=== PATIENT | female | born 1945 | race Asian ===

== ENCOUNTER → 2020-03-31 10:14 | Outpatient (CLI) | payer MEDICARE, OTHER, SELFPAY ==
[2020-03-31 13:23] LABS: COVID19 -Nasal RAPID Negative (Negative)
== END ==
PROVIDERS: Visit Provider Physician Assistant
DX: Z11.59 Encounter for screening for other viral diseases (principal)
CPT/HCPCS: 87635

== ENCOUNTER → 2020-09-03 12:07 | Outpatient (CLI) | payer MEDICARE, OTHER, SELFPAY ==
[2020-09-03 13:11] LABS: Add Manual Diff / Slide Review NO; Basophils Absolute Auto 100 /uL (0-100); Basophils Percent Auto 0.6 % (0-2); Eosinophils Absolute Auto 100 /uL (0-450); Eosinophils Percent Auto 0.7 % (2-4); Hematocrit 33.8 % (36-46); Hemoglobin 11.2 g/dL (12.0-16.0); Lymphocytes Absolute Auto 1000 /uL (1100-4500); Lymphocytes Percent Auto 8.9 % (25-40); Mean Corpuscular Hemoglobin 30.8 PG (26-34); Mean Corpuscular Volume 93.3 fL (80-100); Monocytes Absolute Auto 600 /uL (0-900); Monocytes Percent Auto 5.4 % (3-14); Neutrophils Absolute Auto 9500 /uL (1500-7000); Neutrophils Percent Auto 84.4 % (50-75); Platelet Count 398 X10^3/uL (150-400); Red Blood Cell Count 3.62 X10^6/uL (4.0-5.2); Red Cell Distribution Width 13.4 % (11.6-14.8); White Blood Cell Count 11.3 X10^3/uL (4.5-11.0)
[2020-09-03 13:33] LABS: Hemoglobin A1C% w Est Avg Glu 7.2 % (4.0-6.0)
[2020-09-03 13:42] LABS: BUN Creatinine Ratio 26.2 (6-22); Blood Urea Nitrogen 37 mg/dL (7-17); Calcium 9.6 mg/dL (8.4-10.2); Carbon Dioxide 29 mmol/L (22-32); Chloride 100 mmol/L (98-107); Estimated Glomerular Filt Rate 36.2 mL/min (>60); Glucose 188 mg/dL (80-110); HEMOLYSIS < 15 (0-50); Potassium 4.2 mmol/L (3.4-5.1); Sodium 137 mmol/L (137-145)
== END ==
PROVIDERS: Referring Provider Orthopaedic Surgery; Visit Provider Orthopaedic Surgery
DX: R73.9 Hyperglycemia, unspecified (principal); Z01.812 Encounter for preprocedural laboratory examination; N39.0 Urinary tract infection, site not specified
CPT/HCPCS: 36415; 80048; 83036; 85025

== ENCOUNTER → 2020-09-15 08:59 | Outpatient (CLI) | payer MEDICARE, OTHER, SELFPAY ==
[2020-09-15 11:30] LABS: COVID19 -Nasal RAPID Negative (Negative)
== END ==
PROVIDERS: Visit Provider Student in an Organized Health Care Education/Training Program
DX: Z01.812 Encounter for preprocedural laboratory examination (principal); Z20.822 Contact with and (suspected) exposure to COVID-19
CPT/HCPCS: 87635

== ENCOUNTER 2020-09-16 07:45 | Inpatient (IN) | payer MEDICARE, OTHER, SELFPAY ==
[2020-09-10 12:12] VITALS: BMI 25.6
[2020-09-16] VITALS (20 sets, daily range): BP systolic 97–175; BP diastolic 58–75; PULSE 58–73; RESP 8–22; TEMP 35.8–37.3; O2SAT 92–98; BMI 28.3
[2020-09-16] MEDS: ACETAMINOPHEN 325 MG TABLET 975 MG PO (09:10)
[2020-09-16] MEDS: CELECOXIB 200 MG CAPSULE PO (09:11)
[2020-09-16] MEDS: LACTATED RINGERS 1,000 ML 42 ML IV ×2 (09:15→12:54)
[2020-09-16] MEDS: VANCOMYCIN 1,000 MG/200 ML PIGGYBACK 200 MG IV (10:00)
--- NOTE | 2020-09-16 10:47 | P.OP_ITS ---
Operative Date/Time/Diagnoses Date of procedure: 09/16/20 Time of procedure: 10:48 Pre-op diagnosis: Left knee osteoarthritis severe Post-op diagnosis: same Procedure & Clinicians Procedure: Left total knee arthroplasty Same procedure as scheduled: Yes Indications: The patient has had progressively worsening left knee pain with radiographic changes consistent with arthritis. Non-operative management has failed and the patient has requested total knee replacement. The risks, benefits and alternatives to surgery were discussed with the patient prior to proceeding. Risks discussed included, but were not limited to, failure to relieve pain, stiffness, infection, nerve damage, deep venous thrombosis, pulmonary embolism, stroke, coma, heart attack, permanent paralysis and , as well as the potential need for eventual revision of the prosthetic. She also has multiple multiple medical comorbidities which I anticipate will require inpatient admission close monitoring and probable discharge to an [facility]. We have been medically stabilizing her for about a year due to her mild renal failure, she has seen a nursing care attendant for workup of her heart and is were carefully with her primary care practitioner to stabilize her other medical problem. She also has fairly severe right knee osteoarthritis. Surgeon: Mahogany Stout [employer] Consultant: Dakota Mckeon Anesthesia Type: General and Peripheral nerve block Operative Notes Findings: Severe left knee osteoarthritis Closure Type: primary Specimen(s): none sent Prosthetic devices, grafts, tissues, transplants, or devices: Stout and Nephew Vicente BCS 2 size 2 femur, size 2 tibia, +9 poly 32 x 7.5 mm patella Applied: drain(s) Estimated Blood Loss (mL): 250 Blood products transfused: none Tourniquet time (min): 80 Procedure in detail: The patient was seen in the pre-operative area, where the patient identified the left knee as the operative site and this was marked with my initials. The patient received pre-operative antibiotics, and was taken to the operating room and placed on the operative table in the supine position. After satisfactory anesthesia, a manager supply out was performed. The left leg was e ncircled with a tourniquet about the proximal thigh, and the leg was prepared from the toes to the tourniquet with ChloroPrep in the usual fashion and draped through sterile drapes. The leg was elevated and exsanguinated with Eschmark bandage and the tourniquet inflated to [250] mmHg pressure. The knee was approached through an approximately 18 cm incision centered over the patella and carried into the knee through a medial parapatellar arthrotomy. A portion of the medial and lateral meniscus was resected. Soft tissue was carefully mobilized around the patella the patella was measured with a caliper. Bone was resected from the patella and the patellar height was reconstituted with up an appropriate sized patellar component. A cover was then placed on the patella. A small amount of additional medial and lateral meniscus was resected. The distal femur was cut at 5?. A [+2] cut was used. It looked like an appropriate distal femoral cut and the cut was made without difficulty. An extr amedullary guide was used for the tibial cut. 10 mm was resected off the least affected side.The tibia was prepared. The rotation was assessed. The patient was placed in extension residual medial and lateral meniscus as well as any residual bone was carefully resected. [No] additional tibia was resected. Hemostasis was achieved especially posteriorly. Additional local was injected into the posterior capsule. The extension gap was assessed and additional releases for gap balancing were performed as necessary. It was checked with the gap machine sander. The femoral component was trial was placed and the notch was finished. The rotation was assessed and the appropriate size femoral guide was placed on the distal femur and finishing cuts were made. There was no evidence of notching. The anterior, posterior and chamfer cuts were then made. The posterior osteophytes and soft tissues were then removed. The posterior capsule was injected with part of a mixture of 60 ml 0.25% Marcaine mixed with 20 ml Exparel for post operative pain control. The remainder of this mixture was injected into the capsule and subcutaneous tissues during cement curing. The tibial and femoral components were then placed and the knee placed through a range of motion. Range of motion was [0-120], with good stability throughout the range. The trials were then removed, and the tibia was finished. The bone was prepared with pulsatile lavage, and dried with a sponge. Cement was applied and the final prosthetics placed. Excess cement was removed during and after cement curing. A brief Betadine soak was performed. After confirming there was no extruded cement posteriorly, the final tibial insert was placed. The knee was copiously irrigated and the tourniquet deflated. Hemostasis was obtained with the Bovie. A drain was placed and brought out superolaterally. The capsule was closed with interrupted nonabsorbable suture. The subcutaneous layer was closed with barbed sutures, and the skin with a running 3-0 V-Lock suture and Surgical glue. An Aquacel Ag dressing was applied and the patient was taken to recovery having tolerated the procedure well. Complications: none Post-operative Condition: stable Disposition: Acute Care Plan for aftercare: Inpatient admission due to multiple medical comorbidities including mild chronic renal failure, significant hypertension, severe right knee osteoarthritis and significant immobility. Anticipate she will require at least 2 midnights of care and that she will likely require discharge to rehab in order to recover and get function from her left knee arthroplasty.
--- NOTE | 2020-09-16 10:47 | PM.PREOP ---
Pre-operative Note COVID-19 COVID-19 status: Negative Interval Note History & Physical reviewed/Exam performed by Physician: Yes Changes to H&P: No
[2020-09-16] MEDS: MIDAZOLAM 2 MG/2 ML VIAL IV (10:51)
[2020-09-16] MEDS: fentaNYL 100 MCG/2 ML INJ 50 MCG IV (11:03)
--- NOTE | 2020-09-16 11:04 | SUR.PREOP ---
Pt brought to room 5 for block. Block start time [1050] . Monitoring initiated and maintained throughout procedure. Oxygen and medications given per anesthesiologist instructions. Patient remained stable throughout procedure, no adverse reactions noted. Block end time [1057]. Pt left with CHIOMA Granados in stable condition.
[2020-09-16] MEDS: TRANEXAMIC ACID 1,000 MG VIAL 1000 MG INJ ×2 (11:28→12:49)
--- NOTE | 2020-09-16 11:33 | SUR.OPER ---
Supine on padded OR bed. Pillow under head, arms secured on padded armboards <90 degree abduction. Safety belt across torso. Non-operative leg secured with tape over blanket over lower leg. Operative leg secured in DeMayo/Osmel positioner. Foam padded brace at thigh of operative leg.
[2020-09-16] MEDS: CEFAZOLIN 1 GM VIAL 2 GM IV ×2 (11:40→21:09)
[2020-09-16] MEDS: BUPIVACAINE 0.5% W/ EPI (PF) 30 ML VIAL INJ (11:41)
[2020-09-16] MEDS: BUPIVACAINE LIPOSOME 266 MG/20 ML VIAL INJ (11:42)
--- NOTE | 2020-09-16 12:00 | DI.RAD.S_ITS ---
PROCEDURE: XR KNEE LT 1TO2V INDICATIONS: LEFT TOTAL KNEE TECHNIQUE: 2 view(s) of the knee acquired. COMPARISON: None. FINDINGS: Bones: Patient is status post knee joint arthroplasty. Hardware components are in expected positions. Visualized bony structures are intact. Soft tissues: Overlying postoperative changes are noted. IMPRESSION: Expected postoperative appearance. Dictated by: Baron Guzman M.D. on 09/16/2020 at 14:01 Approved by: Baron Guzman M.D. on 09/16/2020 at 14:02
[2020-09-16] MEDS: OXYCODONE/ACETAMINOPHEN 5/325 TABLET 1 TAB PO (14:08)
[2020-09-16] MEDS: hydrOXYzine 50 MG/ML INJ 25 MG IM (14:13)
--- NOTE | 2020-09-16 14:47 | PC.NURSE ---
Day shift: Pt on AC unit from PACu at approx 1450. She is sleeping but awakes to voice. Omid-vac to be unclamped at approx 1515 per TEMPLATE REPRODUCTION TECHNICIAN Steve. ROSEANN and Aquacel left knee CDI. O2 93% RA. SCD's tolerated. VS WNL. BG in PACU was 206. CMS ok. Call light in reach. Bed alarm is on. High fall risk for now.
--- NOTE | 2020-09-16 14:53 | SUR.PHASEI ---
REPORT CALLED TO SANTY HALL RN. ALL QUESTIONS ANSWERED TO SATISFACTION, HV CLAMPED, DUE TO BE UNCLAMPED AFTER 2 HRS WHICH IS 1520. VSS, RA. PAIN ADEQUATELY TREATED. PATIENT MOSTLY SLEEPING, AROUSES TO VOICE. IN PERSON HANDOFF TO CHIOMA MADERA AT BEDSIDE. SCD'S ON, BED LOCKED IN LOW POSITION, VSS. CALL LIGHT IN REACH.
[2020-09-16] MEDS: LACTATED RINGERS 1,000 ML 100 ML IV (14:58)
[2020-09-16] MEDS: INSULIN LISPRO 100 UNIT/ML 3ML VIAL 6 UNIT SUBCUT (18:07)
[2020-09-16] MEDS: OXYCODONE IR 5 MG TABLET PO ×2 (18:09→21:19)
--- NOTE | 2020-09-16 20:42 | P.CONS_ITS ---
History of Present Illness Consult details Date Patient Seen: 09/16/20 Time Patient Seen: 15:43 Chief complaint: OPB Reason for consult: Medical management of multiple comorbidities Requesting provider: Mahogany Stout Narrative: Ms. Marley is a 75W with PMH CKD stage 4 baseline creatinine 1.4- 1.7, hx of CVA, DM, HL, HTNu, diastolic CHF, who was an operative case with Dr. Stout for left knee osteoarthritis and underwent left TKA on 09/16. Prior to admission she did get cardiology, renal, and PCP evaluation to ensure medical optimization prior to surgery. She did do well after surgery and was admitted to the floor. On admission to the floor her vitals were notable for normal blood pressure, all other vitals normal. She was feeling well. She had moderate pain in her left leg after the surgery. Otherwise no chest pain, shortness of breath, lightheadednes, cough, fevers/chills. Her home medications have all been continued at this point Meds Home Medications and Allergies Home Medications Medication Instructions Recorded Confirmed Type albuterol sulfate 1 inh INHALATION QID PRN 03/28/20 09/16/20 History alprazolam 0.25 mg PO BID PRN 03/28/20 09/16/20 History amlodipine 7.5 mg PO DAILY 03/28/20 09/16/20 History anagrelide 1 mg PO Q12H 03/28/20 09/16/20 History docusate sodium 100 mg PO DAILY PRN 03/28/20 09/09/20 History doxazosin 4 mg PO DAILY 03/28/20 09/16/20 History ferrous sulfate 325 mg PO DAILY 03/28/20 09/09/20 History furosemide 20 mg PO BID 03/28/20 09/16/20 History insulin aspart U-100 [Novolog 6 unit SUBCUT BID 03/28/20 09/16/20 History Flexpen U-100 Insulin] insulin glargine [Lantus Solostar 16 unit SUBCUT DAILY 03/28/20 09/16/20 History U-100 Insulin] isosorbide mononitrate 30 mg PO DAILY 03/28/20 09/16/20 History labetalol 300 mg PO BID 03/28/20 09/16/20 History lidocaine [Lidocream] 1 applic TOPICAL QID 03/28/20 09/09/20 History magnesium oxide 800 mg PO DAILY 03/28/20 09/16/20 History multivitamin 1 cap PO DAILY 03/28/20 09/16/20 History prednisone 5 mg PO DAILY 03/28/20 09/16/20 History sertraline 100 mg PO DAILY 03/28/20 09/16/20 History simvastatin 20 mg PO BEDTIME 03/28/20 09/16/20 History clopidogrel 75 mg PO DAILY 09/09/20 09/16/20 History hydrocodone-acetaminophen 2 tab PO Q4-6H PRN 09/09/20 09/09/20 History Allergies Allergy/AdvReac Type Severity Reaction Status Date / Time caffeine Allergy Mild Rash Verified 03/28/20 12:35 clonidine Allergy Mild Rash Verified 03/28/20 12:35 lansoprazole [From Prevacid] Allergy Mild Rash Verified 03/28/20 12:35 Penicillins Allergy Mild Rash Verified 03/28/20 12:35 spironolactone Allergy Mild Rash Verified 03/28/20 12:35 aspirin Allergy Reaction Verified 03/28/20 12:35 not listed egg AdvReac Nausea Verified 03/28/20 12:35 milk AdvReac Cramp Verified 03/28/20 12:35 Review of Systems Review of Systems Narrative: 14 systems reviewed and negative aside from what is noted in HPI Exam Vital Signs (past 8 hours): - 09/16/20 13:22 09/16/20 13:26 09/16/20 13:31 Temperature 97.9 F Pulse Rate 66 66 67 Respiratory Rate 8 L 8 L 8 L Blood Pressure 166/72 H 170/65 H 165/71 H Pulse Oximetry 98 97 96 09/16/20 13:36 09/16/20 13:40 09/16/20 13:45 Temperature 99.1 F Pulse Rate 60 68 67 Respiratory Rate 8 L 8 L 10 L Blood Pressure 161/65 H 151/66 H 152/66 H Pulse Oximetry 96 96 94 09/16/20 13:51 09/16/20 13:56 09/16/20 14:05 Temperature 98.2 F Pulse Rate 67 70 73 Respiratory Rate 11 L 10 L 12 Blood Pressure 174/75 H 174/67 H 171/75 H Pulse Oximetry 92 94 95 09/16/20 14:20 09/16/20 14:30 09/16/20 14:35 Temperature 98.2 F Pulse Rate 71 68 64 Respiratory Rate 12 12 12 Blood Pressure 175/70 H 169/67 H 161/65 H Pulse Oximetry 94 94 94 09/16/20 14:45 09/16/20 15:15 09/16/20 15:45 Temperature 97.9 F 96.9 F L 97.2 F L Pulse Rate 60 62 58 L Respiratory Rate 14 15 15 Blood Pressure 140/64 97/58 L 140/67 Pulse Oximetry 92 92 92 09/16/20 16:44 09/16/20 18:14 Temperature 96.4 F L 97.9 F Pulse Rate 61 70 Respiratory Rate 16 16 Blood Pressure 132/69 156/72 H Pulse Oximetry 95 96 Oxygen Delivery Method Room Air Oxygen Flow Rate 0 Narrative Exam Narrative: GEN: no acute distress HEENT: no JVD, moist mucous membranes NECK: trachea midline, no JVD CV: regular rate and rhythm with no murmurs PULM: clear bilaterally, no wheezes, rhonchi, rales ABD: soft, nontender, nondistended, no organomegaly EXT: left knee bandaged, both legs warm and well perfused with normal sensation, pulses present NEURO: awake and alert, moving all extremities PSYCH: pleasant mood, cooperative Assessment & Plan Assessment & Plan narrative: Ms. Marley is a 75W with PMH CHF, CKD stage 4, DM, HTN, hx CVA who is POD #0 from left knee TKA 1. CKD stage 4 -creatinine at baseline -no nephrotoxins ordered -keep blood pressure under control -plan to stop fluids 09/17 AM if continues with clinical stability 2. CHF, diastolic, chronic -patient currently euvolemic -on gentle IVF -plan to keep overnight, and dc as able in AM 3. Hypertension -home medications ordered -blood pressure well controlled -continue labetalol, imdur 4. Hyperlipidemia -continue statin 5. Diabetes -continued on home dose of insulin with 16U lantus and prandial insulin -qachs glucose checks 6. Hx of CVA -continue aspirin, plavix, and statin -PT/OT as patient has natural baseline gait imbalance 7. Essential thrombocytosis -on anagrelide, can reorder on DC Code status: Full, proxy is son Al
[2020-09-16] MEDS: ACETAMINOPHEN 325 MG TABLET 650 MG PO (21:10)
[2020-09-16] MEDS: ASPIRIN EC 81 MG TABLET PO (21:10)
[2020-09-16] MEDS: ATORVASTATIN 20 MG TABLET 10 MG PO (21:11)
[2020-09-16] MEDS: DOCUSATE 100 MG CAPSULE PO (21:11)
[2020-09-16] MEDS: LABETALOL 100 MG TABLET 300 MG PO (21:11)
[2020-09-16] MEDS: FUROSEMIDE 20 MG TABLET PO (21:11)
--- NOTE | 2020-09-16 21:38 | PC.NURSE ---
Evening Shift Note Patient with bedtime CBG of 242, no SSI available for coverage. electronics computer mechanic MD Dr Rome called and no answer, voicemail left @ [phone].
[2020-09-16] MEDS: INSULIN LISPRO 100 UNIT/ML 3ML VIAL SUBCUT (23:19)
[2020-09-17] VITALS (9 sets, daily range): BP systolic 137–187; BP diastolic 50–86; PULSE 58–70; RESP 12–18; TEMP 35.6–36.8; O2SAT 94–98
[2020-09-17] MEDS: LACTATED RINGERS 1,000 ML 100 ML IV (01:44)
[2020-09-17] MEDS: OXYCODONE IR 5 MG TABLET PO ×2 (03:21→08:28)
[2020-09-17] MEDS: CEFAZOLIN 1 GM VIAL 2 GM IV (04:17)
[2020-09-17 04:48] LABS: Hemoglobin 10.3 g/dL (12.0-16.0)
[2020-09-17 04:58] LABS: Blood Urea Nitrogen 40 mg/dL (7-17); Calcium 9.1 mg/dL (8.4-10.2); Carbon Dioxide 32 mmol/L (22-32); Chloride 101 mmol/L (98-107); Estimated Glomerular Filt Rate 34.2 mL/min (>60); Glucose 118 mg/dL (80-110); HEMOLYSIS < 15 (0-50); Sodium 138 mmol/L (137-145)
[2020-09-17] MEDS: ALPRAZolam 0.25 MG TABLET PO (06:05)
[2020-09-17] MEDS: ACETAMINOPHEN 325 MG TABLET 650 MG PO ×3 (08:20→21:18)
[2020-09-17] MEDS: ASPIRIN EC 81 MG TABLET PO ×2 (08:22→21:19)
[2020-09-17] MEDS: ISOSORBIDE MONONITRATE ER 30 MG TABLET PO (08:23)
[2020-09-17] MEDS: predniSONE 5 MG TABLET PO (08:24)
[2020-09-17] MEDS: CLOPIDOGREL 75 MG TABLET PO (08:24)
[2020-09-17] MEDS: MAGNESIUM OXIDE 400 MG TABLET 800 MG PO (08:24)
[2020-09-17] MEDS: MULTIVITAMIN 1 TABLET 1 TAB PO (08:24)
[2020-09-17] MEDS: FERROUS SULFATE 325 MG TABLET PO (08:24)
[2020-09-17] MEDS: DOCUSATE 100 MG CAPSULE PO ×2 (08:24→21:18)
[2020-09-17] MEDS: DOXAZOSIN 4 MG TABLET PO (08:26)
[2020-09-17] MEDS: SERTRALINE 50 MG TABLET 100 MG PO (08:26)
[2020-09-17] MEDS: FUROSEMIDE 20 MG TABLET PO ×2 (08:26→21:19)
[2020-09-17] MEDS: LABETALOL 100 MG TABLET 300 MG PO ×2 (08:27→21:18)
[2020-09-17] MEDS: AMLODIPINE 5 MG TABLET 7.5 MG PO (08:28)
[2020-09-17] MEDS: INSULIN LISPRO 100 UNIT/ML 3ML VIAL 6 UNIT SUBCUT ×2 (08:45→16:54)
[2020-09-17] MEDS: INSULIN GLARGINE 100 UNIT/ML 3ML PEN 16 UNIT SUBCUT (08:45)
--- NOTE | 2020-09-17 10:16 | P.PN_ITS ---
Subjective Subjective Date Patient Seen: 09/17/20 Time Patient Seen: 07:28 Interval history: Pain is 6 to 7/10. Denies fever or chills. No nausea or vomiting. Exam Vital Signs (past 8 hours): - 09/17/20 06:00 09/17/20 07:25 09/17/20 08:26 Temperature 98.3 F 97.4 F L Pulse Rate 68 66 Respiratory Rate 16 12 Blood Pressure 187/86 H 185/77 H 185/77 H Pulse Oximetry 94 98 09/17/20 08:27 Temperature Pulse Rate Respiratory Rate Blood Pressure 185/77 H Pulse Oximetry Oxygen Delivery Method Room Air Oxygen Flow Rate 0 Narrative Exam Narrative: 75-year-old female resting comfortably in bed in no apparent distress. Dressing is Clean, dry, intact.. Motor functions intact bilateral lower extremities. Sensation grossly intact to light touch bilateral lower extremities. Objective Labs Result Diagrams: 09/17/20 04:20 09/17/20 04:20 Labs: Laboratory Results - last 24 hr 09/17/20 09/17/20 04:20 04:20 Hgb 10.3 L Hct 32.0 L Sodium 138 Potassium 4.0 Chloride 101 Carbon Dioxide 32 BUN 40 H Creatinine 1.48 H Estimated GFR 34.2 L BUN/Creatinine Ratio 27.0 H Glucose 118 H Calcium 9.1 PFSH Medical History Anemia Anxiety Atypical chest pain Cataracts, bilateral CKD (chronic kidney disease), stage IV Congestive heart failure CVA (cerebral vascular accident) Diabetes Diabetic macular edema Diabetic neuropathy Diabetic retinopathy Diastolic dysfunction Edema Essential thrombocythemia Essential thrombocytosis Gait disorder GERD (gastroesophageal reflux disease) Glaucoma HTN (hypertension) Hypercholesterolemia Hyponatremia Insomnia Left ventricular hypertrophy Major depressive disorder Osteoarthritis Pain Pseudophakia of left eye Vitreous hemorrhage of right eye Surgical History History of arthroplasty of left knee (04/01/20) Social History household members: other Smoking Status: Former smoker alcohol intake: never Assessment & Plan Post-op Postoperative Procedures: Procedures Operation Date: 09/16/20 09:45 Actual Procedures Side Surgeon p Total Knee Arthroplasty Left Mahogany Stout MD Postop day 1 status post left total knee arthroplasty. Patient inpatient admission due to multiple medical comorbidities including mild chronic renal failure, significant hypertension, severe right knee osteoarthritis and significant immobility. Patient does live alone. She will mobilize with physical therapy. Weightbearing as tolerated. Likely need senior living facility for rehab postop when stable per IM. Internal Medicine is consulting on patient and appreciate them following CKD stage 4, CHF, hypertension, hyperlipidemia, diabetes, history of CVA, essential thrombocytosis.
--- NOTE | 2020-09-17 11:14 | PM.PN.1 ---
Subjective Subjective Date Patient Seen: 09/17/20 Time Patient Seen: 08:14 Interval history: Her pain is currently poorly controlled. She feels anxious. Otherwise she has no complaints. No chest pain, shortness of breath, fevers/chills. Exam Vital Signs (past 8 hours): - 09/17/20 06:00 09/17/20 07:25 09/17/20 08:26 Temperature 98.3 F 97.4 F L Pulse Rate 68 66 Respiratory Rate 16 12 Blood Pressure 187/86 H 185/77 H 185/77 H Pulse Oximetry 94 98 09/17/20 08:27 Temperature Pulse Rate Respiratory Rate Blood Pressure 185/77 H Pulse Oximetry Oxygen Delivery Method Room Air Oxygen Flow Rate 0 Narrative Exam Narrative: GEN: no acute distress HEENT: no JVD, moist mucous membranes NECK: trachea midline, no JVD CV: regular rate and rhythm with no murmurs PULM: clear bilaterally, no wheezes, rhonchi, rales ABD: soft, nontender, nondistended, no organomegaly EXT: left knee bandaged, both legs warm and well perfused with normal sensation, pulses present NEURO: awake and alert, moving all extremities PSYCH: pleasant mood, cooperative Objective Labs Result Diagrams: 09/17/20 04:20 09/17/20 04:20 Labs: Laboratory Results - last 24 hr 09/17/20 09/17/20 04:20 04:20 Hgb 10.3 L Hct 32.0 L Sodium 138 Potassium 4.0 Chloride 101 Carbon Dioxide 32 BUN 40 H Creatinine 1.48 H Estimated GFR 34.2 L BUN/Creatinine Ratio 27.0 H Glucose 118 H Calcium 9.1 PFSH Medical History Anemia Anxiety Atypical chest pain Cataracts, bilateral CKD (chronic kidney disease), stage IV Congestive heart failure CVA (cerebral vascular accident) Diabetes Diabetic macular edema Diabetic neuropathy Diabetic retinopathy Diastolic dysfunction Edema Essential thrombocythemia Essential thrombocytosis Gait disorder GERD (gastroesophageal reflux disease) Glaucoma HTN (hypertension) Hypercholesterolemia Hyponatremia Insomnia Left ventricular hypertrophy Major depressive disorder Osteoarthritis Pain Pseudophakia of left eye Vitreous hemorrhage of right eye Surgical History History of arthroplasty of left knee (04/01/20) Social History household members: other Smoking Status: Former smoker alcohol intake: never Assessment & Plan Assessment & Plan narrative: Ms. Marley is a 75W with PMH CHF, CKD stage 4, DM, HTN, hx CVA who is POD #0 from left knee TKA 1. CKD stage 4 -creatinine at baseline -no nephrotoxins ordered -keep blood pressure under control -stopped fluids 09/17 AM if continues with clinical stability 2. CHF, diastolic, chronic -patient currently euvolemic -stoppin IVF -plan to keep overnight, and dc as able in AM 3. Hypertension -home medications ordered -blood pressure elevated suspect secondary to significant pain -continue labetalol, imdur 4. Hyperlipidemia -continue statin 5. Diabetes -continued on home dose of insulin with 16U lantus and prandial insulin -qachs glucose checks 6. Hx of CVA -continue aspirin, plavix, and statin -PT/OT as patient has natural baseline gait imbalance 7. Essential thrombocytosis -on anagrelide, can reorder on DC Code status: Full, proxy is son Al
--- NOTE | 2020-09-17 11:25 | PT.IIE ---
Current Diagnoses Unilateral primary osteoarthritis, left knee (09/16/20) Surgery Performed Operation Date: 09/16/20 09:45 Actual Procedures p Total Knee Arthroplasty(Left) - Mahogany Stout MD Surgical History (Last Reviewed 09/17/20 @ 10:17 by Dakota Mckeon PA-C) History of arthroplasty of left knee (04/01/20) Medical History (Last Reviewed 09/17/20 @ 10:17 by Dakota Mckeon PA-C) Anemia Anxiety Atypical chest pain Cataracts, bilateral CKD (chronic kidney disease), stage IV Congestive heart failure CVA (cerebral vascular accident) Diabetes Diabetic macular edema Diabetic neuropathy Diabetic retinopathy Diastolic dysfunction Edema Essential thrombocythemia Essential thrombocytosis Gait disorder GERD (gastroesophageal reflux disease) Glaucoma HTN (hypertension) Hypercholesterolemia Hyponatremia Insomnia Left ventricular hypertrophy Major depressive disorder Osteoarthritis Pain Pseudophakia of left eye Vitreous hemorrhage of right eye Physical Therapy Inpatient Evaluation/Re-Eval M1 PT/OT-IP Prior Functional Status Start: 09/17/20 12:31 Freq: NEEDED Status: Active Protocol: Document 09/17/20 11:25 AB (Rec: 09/17/20 12:45 AB [email or web address]) Medical Review Prior Functional Status Medical History Reviewed Yes Communication able to make needs known Mobility and Gait pt stated that she is modified independent with all mobilities and ambulation using 4WW; stated that she is limited with ambulation inside her apartment/room due to her knee pain Social History Household Members other Living Arrangements Assisted Living Number of Stairs To Enter/Railing? Pt lives at [facility] on 2nd floor apartment and has an elevator to get to her floor. Home Environment Standard Height Toilet,Walk in Shower,Elevator Home Equipment Front Wheel Walker,Four Wheel Walker,Shower Seat with Backrest,Hand Held Shower,Grab Bars Near Toilet,Grab Bars In Shower Additional Social History Comment has a transfer pole next to her bed on the L M2 PT-IP Current Condition Start: 09/17/20 12:31 Freq: NEEDED Status: Active Protocol: Document 09/17/20 11:25 AB (Rec: 09/17/20 12:45 AB [id number]) Physical Therapy Current Condition Current Condition Evaluation Date 09/17/20 Treatment Diagnosis s/p L TKA; difficulty in walking Onset Date 09/16/20 Weight Bearing Status Weight Bearing Status Weight Bear as Tolerated Allowed Weight Bearing Amount (enter % LLE WBAT or #) (%) M3 PT-IP Subjective Start: 09/17/20 12:31 Freq: NEEDED Status: Active Protocol: Document 09/17/20 11:25 AB (Rec: 09/17/20 12:45 AB [email or web address]) Subjective Physical Therapy Visit Type Type Initial Evaluation Visit Start Time 11:25 Visit Stop Time 12:10 Total Visit Minutes 45 Number of HEATING AND VENTILATING DRAFTER Visits 0 Physical Therapy Visit Comments Patient Comments pt is agreeable to do PT Therapy Pain Assessment Pain When Pain Assessed At Rest Pain Present Pain Present Pain Reported Location r knee Intensity 10 Scale Used Numeric (0 - 10) Pain Behaviors Facial Grimacing,Guarding, Holding Area,Wincing Pain Management Techniques Apply Cold,Elevation, Modification of Treatment,Re- positioning,Timing of Activity with Medications M4 PT-IP Mobility and Gait Start: 09/17/20 12:31 Freq: NEEDED Status: Active Protocol: Document 09/17/20 11:25 AB (Rec: 09/17/20 12:45 AB [email or web address]) PT-Bed Mobility Assessment Supine to Sit Supine to Sit Maximum Assistance Scooting Scooting to Edge of Bed Maximum Assistance PT-Transfer Assessment Sit to and From Stand Sit to and from Stand Maximum Assistance,2 Person Assistance,Use of Upper Extremities Equipment Transfer Assistive Device Gait Belt,Front Wheeled Walker Orthotic/Prosthetic Devices or Brace: No Transfers Transfer Destination Chair Transfer Technique Stand Step Pivot Transfer Ability Level of Assist Maximum Assistance,2 Person Assistance,Use of Upper Extremities Comments Mobility Comments pt completed supine to sit max A and max cues. pt c/o increase knee pain and tends to posteriorly lean and requires cues to correct. required min to mod A to maintain sitting balance. completed sit to stand max A x 2 and max cues. presents with increas posterior trunk lean and BLE tends to slide forward required max A to stabilize and block LE to prevent from sliding forwards. pt required max A x 1-2 to maintain standing balance while assisted with brief management. completed step transfer max A x 2 using FWW. educated pt on safety and to correct posture during standing. completed sit to stand from chair max A x 2 and max cues and was able to take a few steps forwards ~ 2 ft using FWW max A x 2 and max cues. pt with increase fear of falling presenting with increase extensor trunk guarding requiring max A x 2 for steadiness. positioned pt on chair. call light and table placed within reach. educated pt on safety and decrease guarding and pt understood. Gait Assessment Gait Gait Assistance Required: Maximum Assistance,2 Person Assist Distance (Feet) 2 Able to Maintain Weight Bearing Status Yes During Gait Assistive Devices Assistive Device Gait Belt,Front Wheeled Walker Orthotic/Prosthetic Devices or Brace: No Gait Deviations General Gait Pattern Antalgic,Decreased Stride Length,Decreased Feet Clearance,Narrow Based Gait, Step-to Gait Factors Limiting Gait Function Factors Limiting Gait Function Decreased Activity Tolerance, Decreased Strength,Difficulty Following Directions,Limited Range of Motion,Pain,Poor Balance,Poor Safety Awareness Comments Gait Comments pls refer to mobility section for details PT-Balance Assessment Sitting Balance and Reactions Static Sitting Balance Ability Fair Dynamic Sitting Balance Ability Poor Standing Balance and Reactions Static Standing Balance Ability Poor Dynamic Standing Balance Ability Poor Device Used FWW M5 PT-IP Objective Assessments Start: 09/17/20 12:31 Freq: NEEDED Status: Active Protocol: Document 09/17/20 11:25 AB (Rec: 09/17/20 12:45 AB [email or web address]) Orientation Orientation/Cognition Level of Alertness Alert Orientation Name,Place,Situation Language Function Ability No Deficits Noted Safety Awareness Decreased Safety Awareness Memory Description Short Term Impaired Gross Range of Motion Lower Extremity ROM Impairments R knee flexion: ~ 40 deg L knee flexion: ~ 50 deg L knee extension: lacking ~ 15 deg to 0 (+) R knee crepitus with ROM Strength Lower Extremity Strength Assessment Bilaterally Impaired Comments Strength Comments RLE: 3+/5 LLE: 3-/5 Coordination Assessment Gross Coordination Gross Coordination WNL Sensation Assessment Sensation Gross Sensation WNL Muscle Tone Muscle Tone WNL Yes M6 PT-IP Treatment Start: 09/17/20 12:31 Freq: NEEDED Status: Active Protocol: Document 09/17/20 11:25 AB (Rec: 09/17/20 12:45 AB [email or web address]) Physical Therapy Treatment Exercises Exercises Heel Slides Education Education Provided Precautions,Weight Bearing Status,Post-Op Packet,Safety M7 PT-IP Assessment and Plan Start: 09/17/20 12:31 Freq: NEEDED Status: Active Protocol: Document 09/17/20 11:25 AB (Rec: 09/17/20 12:45 AB [id number]) PT Summary Assessment and Plan Potential Rehabilitation Potential Good Status of Condition at Evaluation Evolving Summary Impairments Pain,ROM,Strength,Balance, Coordination,Sensation,Tone, Cognition,Bed Mobility, Transfers,Gait,Activity Tolerance Assessment Summary pt requirig max a x 2 with all mobility using FWW. pt was not able to ambulate much and c/o increase knee pain and has increase fear of falling presenting with increase trunk extension affecting mobility and safety. pt will require SNF rehab to improve strength and mobility independence. Goals Transfer Goal Contact Guard Assistance,Front Wheeled Walker Gait Goal Contact Guard Assistance,Front Wheel Walker Gait Distance 50 Other Goals improve bed mobility, transfers and ambulation using FWW 100 ft SBA Days to Meet Goals 5 Frequency of Treatment Frequency Of Treatment Twice a Day Treatment Plan Physical Therapy Treatment Plan Bed Mobility Training,Transfer Training,Gait Training, Therapeutic Exercise,Balance Retraining,Post Op Education, Discharge Planning,Hot or Cold Pack,Neuromuscular Re-ed, Coordination Retraining,Manual Therapy Precautions Other Precautions WBAT LLE Recommendations To Nursing Amount of Assist Needed Mechanical Lift Discharge Recommendations PT Discharge Recommendations SNF Rehab Transportation Needs at Discharge Wheelchair/Cabulance
[2020-09-17] MEDS: OXYCODONE IR 10 MG TABLET PO ×3 (11:26→21:19)
[2020-09-17] MEDS: DICLOFENAC 1% GEL 100 GM 1 APPLIC TOP ×3 (13:04→21:20)
--- NOTE | 2020-09-17 14:40 | PT.IPTN ---
Current Diagnoses Unilateral primary osteoarthritis, left knee (09/16/20) Surgery Performed Operation Date: 09/16/20 09:45 Actual Procedures p Total Knee Arthroplasty(Left) - Mahogany Stout MD Physical Therapy Treatment Note M2 PT-IP Current Condition Start: 09/17/20 12:31 Freq: NEEDED Status: Active Protocol: Document 09/17/20 11:25 AB (Rec: 09/17/20 12:45 AB [email or web address]) Physical Therapy Current Condition Current Condition Evaluation Date 09/17/20 Treatment Diagnosis s/p L TKA; difficulty in walking Onset Date 09/16/20 Weight Bearing Status Weight Bearing Status Weight Bear as Tolerated Allowed Weight Bearing Amount (enter % LLE WBAT or #) (%) M3 PT-IP Subjective Start: 09/17/20 12:31 Freq: NEEDED Status: Active Protocol: Document 09/17/20 14:40 AB (Rec: 09/17/20 16:48 AB [email or web address]) Subjective Physical Therapy Visit Type Type Treatment Note Visit Start Time 14:40 Visit Stop Time 15:10 Total Visit Minutes 30 Number of SELENIUM PLANT OPERATOR Visits 0 Physical Therapy Visit Comments Patient Comments agreed to do PT Therapy Pain Assessment Pain When Pain Assessed At Rest Pain Present Pain Present Pain Reported Location r knee Intensity 12 Scale Used Numeric (0 - 10) Pain Management Techniques Apply Cold,Elevation, Modification of Treatment,Re- positioning,Timing of Activity with Medications M4 PT-IP Mobility and Gait Start: 09/17/20 12:31 Freq: NEEDED Status: Active Protocol: Document 09/17/20 14:40 AB (Rec: 09/17/20 16:48 AB [email or web address]) PT-Bed Mobility Assessment Sit to Supine Sit to Supine Maximum Assistance,2 Person Assistance,Bedrails PT-Transfer Assessment Sit to and From Stand Sit to and from Stand Maximum Assistance,1 Person Assistance,2 Person Assistance ,Use of Upper Extremities Equipment Transfer Assistive Device Gait Belt,Front Wheeled Walker Orthotic/Prosthetic Devices or Brace: No Transfers Transfer Destination Bed Transfer Technique ambulated using FWW Transfer Ability Level of Assist Maximum Assistance,1 Person Assistance,Use of Upper Extremities Comments Mobility Comments pt sitting on chair. Pt does not remember seeing PT this morning. stated that she has memory issues. does not even remember the nurse. assisted pt with putting her shoes on. completed sit to stand max A and max cues. instructed to ambulate and completed max A and max cues and has chair follow for safety. completed descent to the bed max A for control and safety as pt tends to posteriorly lean. completed sit to supine max A x 2 and max cues. positioned pt in bed. call light and table placed within reach. Gait Assessment Gait Gait Assistance Required: Maximum Assistance,1 Person Assist Distance (Feet) 12 Able to Maintain Weight Bearing Status Yes During Gait Assistive Devices Assistive Device Gait Belt,Front Wheeled Walker Orthotic/Prosthetic Devices or Brace: No Gait Deviations General Gait Pattern Antalgic,Decreased Stride Length,Decreased Feet Clearance,Narrow Based Gait, Step-to Gait Factors Limiting Gait Function Factors Limiting Gait Function Decreased Activity Tolerance, Decreased Strength,Difficulty Following Directions,Limited Range of Motion,Pain,Poor Balance,Poor Safety Awareness Comments Gait Comments presents with very narrow step width and required instructions on how to keep legs apart. pt required one step cues with all tasks. M5 PT-IP Objective Assessments Start: 09/17/20 12:31 Freq: NEEDED Status: Active Protocol: Document 09/17/20 11:25 AB (Rec: 09/17/20 12:45 AB [email or web address]) Orientation Orientation/Cognition Level of Alertness Alert Orientation Name,Place,Situation Language Function Ability No Deficits Noted Safety Awareness Decreased Safety Awareness Memory Description Short Term Impaired Gross Range of Motion Lower Extremity ROM Impairments R knee flexion: ~ 40 deg L knee flexion: ~ 50 deg L knee extension: lacking ~ 15 deg to 0 (+) R knee crepitus with ROM Strength Lower Extremity Strength Assessment Bilaterally Impaired Comments Strength Comments RLE: 3+/5 LLE: 3-/5 Coordination Assessment Gross Coordination Gross Coordination WNL Sensation Assessment Sensation Gross Sensation WNL Muscle Tone Muscle Tone WNL Yes M6 PT-IP Treatment Start: 09/17/20 12:31 Freq: NEEDED Status: Active Protocol: Document 09/17/20 14:40 AB (Rec: 09/17/20 16:48 AB [id number]) Physical Therapy Treatment Education Education Provided Safety M7 PT-IP Assessment and Plan Start: 09/17/20 12:31 Freq: NEEDED Status: Active Protocol: Document 09/17/20 14:40 AB (Rec: 09/17/20 16:48 AB [email or web address]) PT Summary Assessment and Plan Potential Rehabilitation Potential Good Summary Impairments Pain,ROM,Strength,Balance, Coordination,Sensation,Tone, Cognition,Bed Mobility, Transfers,Gait,Activity Tolerance Progress Towards Goals Slow Progress due to Pain,Slow Progress due to Medical Issues,Slow Progress due to Activity Tolerance Assessment Summary pt is improving slowly but requires max A and max cues with all tasks. pt has cognitive issues affecting safety. pt will need SNF rehab to improve strength and mobility independence. Goals Bed Mobility Goal Contact Guard Assistance Transfer Goal Contact Guard Assistance,Front Wheeled Walker Gait Goal Contact Guard Assistance,Front Wheel Walker Gait Distance 50 Other Goals improve bed mobility, transfers and ambulation using FWW 100 ft SBA Days to Meet Goals 5 Frequency of Treatment Frequency Of Treatment Twice a Day Treatment Plan Physical Therapy Treatment Plan Bed Mobility Training,Transfer Training,Gait Training, Therapeutic Exercise,Balance Retraining,Post Op Education, Discharge Planning,Hot or Cold Pack,Neuromuscular Re-ed, Coordination Retraining,Manual Therapy Precautions Other Precautions WBAT LLE Recommendations To Nursing Amount of Assist Needed Mechanical Lift Discharge Recommendations PT Discharge Recommendations SNF Rehab Transportation Needs at Discharge Wheelchair/Cabulance
[2020-09-17] MEDS: LORazepam 0.5 MG TABLET PO (14:42)
--- NOTE | 2020-09-17 15:17 | CM.DANOTE ---
Patient is a 75 year old female who was admitted on 09/16/20 for LKA. Pt has [employer] for insurance and her PCP is Yrn Chung. EMR was reviewed. Per Ortho MD, pt tolerated procedure well but was extensive damage and significant pain management issues and recommending likely SNF. Per PT/OT, recommending SNF prior to return to Assisted Living [facility] as pt's right knee also needs revision and pt currently not able to mobilize well with pain and existing knee problems. SW met briefly bedside with pt as she was getting ready to work with PT and she confirms she lives at [facility] in [place] and feels that SNF needed at d/c and denies any hx of SNF. SW provided the SNF Choice list and preference is [facility] SNF to be close to her ortho team. Pt requests referral be made to [facility]. SW called [facility] admissions with new referral and they will review to determine if they can accept. PASRR completed. Plan: SW to follow for [facility] review to determine if they can accept when medically stable. ELIZABET Christie Discharge Planning/Care Management CM Discharge Assessment Start: 09/17/20 15:16 Freq: Status: Active Protocol: Document 09/17/20 15:16 BF (Rec: 09/17/20 15:17 BF [id number]) Discharge Planning Assessment Assigned Senior Integration Architect ELIZABET Joe Advance Directives? Yes Advance Directives on File No History Provided By Patient,Medical Record Has Patient been admitted in last 30 No days? Prior Living Arrangements Assisted Living Household Members spouse,other Type of transporation used prior to Relies on Others admit Independent with ADL's Yes: mostly Is patient alert and oriented? Yes Needs Assistance With Managing Medications,Home Chores / Shopping Caregiver for Another No Patient/Family Preference Custodial Facility Barriers to Discharge No Discharge Plan Custodial Facility Transportation Arrangement Facility van if SNF Referrals Initiated Custodial If patient plan is SNF: Has PASSR been Yes completed? Medicare Choice List Provided Yes SNF/HH Preference [facility] Has Agency SNF been contacted Yes Review Status In Process Please Provide Date Initial DC 09/17/20 Assessment Was Performed Next Review Type Continued Stay Review Pre-Anesthesia Assessment Start: 09/09/20 09:52 Freq: Status: Active Protocol: Document 09/10/20 12:12 CAB (Rec: 09/10/20 12:23 CAB [id number]) Pre-Anesthesia Assessment Patient Information Reviewed Via Phone Assessment Assessment Completed With Other Comment Completed with KAVON Velasquez @ [facility] Diagnostic Results BMP/CMP,CBC,EKG Comment Labs @ [facility] 09/03/20, outside EKG scanned Primary Care Provider Migel Ambrose Seen Specialist in Last 12 Months Yes Specialist Seen [place]agerie Superintendent,Orthopedist Primary Language [place] Islander Fried Cake Maker Required No Height 149.86 cm Weight 57.606 kg Body Mass Index (BMI) 25.6 Hearing Ability Hard of Hearing Barriers to Learning Memory Hx Anesthesia Reactions No Hx Family Anesthesia Reaction No Hx Malignant Hyperthermia No Hx Blood Transfusions No Anesthesia Review Requested Yes: Previously reviewed w/ Anesthesia, records scanned Substance Use Type does not use Pain Present Pain Reported Musculoskeletal Symptoms Difficulty Walking,Joint Pain History of Falling (Recent or History of No ) Patient is completely paralyzed or No completely immobile Prosthesis or Orthotic Device Front Wheel Walker,Wheelchair Mental Status Forgets limitations Is patient on oxygen? No Does patient have PADILLA/SOB No Hx Sleep Apnea No Currently Taking a Beta Don No Hx Chest Pain No Hx SOB No Hx Syncope or Dizziness No Anti-Coagulant Therapy No Has a Planner No Cardiac Testing Yes: Mary Bteh scan 08/07/20-normal Hx Pacemaker/ICD No Pacemaker Rep Required? No Cardiac Clearance Received Not Applicable Diet Type At Home Regular dysphagia No Urinary Catheter Present No Hx Urinary Self Catheterization No Diabetes Yes HgbA1C 7.2 Date 09/03/20 Patient No Lactating No Presence of External or Internal Medical Yes: Left knee Devices Have you had any close contact with No someone diagnosed with COVID-19? Marital Status / Lives With other Prior Living Arrangements Assisted Living Patient Discharge Plan Description Custodial Facility/Rehab Feels Safe in Current Environment Yes Been Physically Hurt or Threatened By a No Person in Current Environment Do you have thoughts of harming yourself None or others? Are you currently considering suicide? No Do you have a plan to hurt yourself or No Plan others? Do You Have Any Spiritual Beliefs That No May Affect Your HC Choices? Do You Have Any Cultural Practices That No May Affect Your HC Choices? Comment Zoroastrianism Who Can We Speak to About Patient's Care Family, friends Identifying Code for Release of Patient Not required Information Health Care Proxy/Next of Kin Al (son) Nilda (daughter ) Health Care Proxy Phone Number Al: [phone] Nilda: [phone] Emergency Contact Name Al (son) Nilda (daughter ) Emergency Contact Phone Number Al: [phone] Nilda: [phone] PAC Instructions Diabetes instructions,Durable medical equipment,Medications to take/avoid,Nasal antibiotic ,No ETOH/petroleum product on skin DOS,NPO,Pre-surgical wash ,Sturdy shoes/comfortable clothes,Do not bring valuables and remove jewelry
--- NOTE | 2020-09-17 16:48 | OT.IPNOTE ---
Attempted to see pt for OT eval, pt not wanting to be seen and wanting to be seen tomorrow but after 10AM.
[2020-09-17] MEDS: INSULIN LISPRO 100 UNIT/ML 3ML VIAL SUBCUT (16:55)
[2020-09-17] MEDS: ATORVASTATIN 20 MG TABLET 10 MG PO (21:19)
[2020-09-18] VITALS (8 sets, daily range): BP systolic 110–163; BP diastolic 51–88; PULSE 63–79; RESP 15–18; TEMP 36.6–37.1; O2SAT 93–97
[2020-09-18] MEDS: HYDROMORPHONE 0.5 MG INJ IV ×3 (00:43→23:33)
[2020-09-18] MEDS: OXYCODONE IR 10 MG TABLET PO ×4 (03:46→21:45)
[2020-09-18] MEDS: MULTIVITAMIN 1 TABLET 1 TAB PO (09:05)
[2020-09-18] MEDS: ACETAMINOPHEN 325 MG TABLET 650 MG PO ×3 (09:05→21:40)
[2020-09-18] MEDS: predniSONE 5 MG TABLET PO (09:05)
[2020-09-18] MEDS: AMLODIPINE 5 MG TABLET 7.5 MG PO (09:05)
[2020-09-18] MEDS: DOCUSATE 100 MG CAPSULE PO ×2 (09:05→21:42)
[2020-09-18] MEDS: CLOPIDOGREL 75 MG TABLET PO (09:05)
[2020-09-18] MEDS: ALPRAZolam 0.25 MG TABLET PO ×2 (09:05→19:38)
[2020-09-18] MEDS: FUROSEMIDE 20 MG TABLET PO ×2 (09:05→21:43)
[2020-09-18] MEDS: FERROUS SULFATE 325 MG TABLET PO (09:05)
[2020-09-18] MEDS: ASPIRIN EC 81 MG TABLET PO ×2 (09:06→21:41)
[2020-09-18] MEDS: SERTRALINE 50 MG TABLET 100 MG PO (09:06)
[2020-09-18] MEDS: MAGNESIUM OXIDE 400 MG TABLET 800 MG PO (09:06)
[2020-09-18] MEDS: ISOSORBIDE MONONITRATE ER 30 MG TABLET PO (09:06)
[2020-09-18] MEDS: LABETALOL 100 MG TABLET 300 MG PO (09:10)
[2020-09-18] MEDS: DOXAZOSIN 4 MG TABLET PO (09:10)
[2020-09-18] MEDS: INSULIN GLARGINE 100 UNIT/ML 3ML PEN 16 UNIT SUBCUT (09:31)
[2020-09-18] MEDS: INSULIN LISPRO 100 UNIT/ML 3ML VIAL 6 UNIT SUBCUT ×2 (09:34→19:12)
[2020-09-18] MEDS: DICLOFENAC 1% GEL 100 GM 1 APPLIC TOP ×3 (09:34→21:42)
--- NOTE | 2020-09-18 10:20 | PT.IPTN ---
Current Diagnoses Unilateral primary osteoarthritis, left knee (09/16/20) Surgery Performed Operation Date: 09/16/20 09:45 Actual Procedures p Total Knee Arthroplasty(Left) - Mahogany Stout MD Physical Therapy Treatment Note M2 PT-IP Current Condition Start: 09/17/20 12:31 Freq: NEEDED Status: Active Protocol: Document 09/17/20 11:25 AB (Rec: 09/17/20 12:45 AB [id number]) Physical Therapy Current Condition Current Condition Evaluation Date 09/17/20 Treatment Diagnosis s/p L TKA; difficulty in walking Onset Date 09/16/20 Weight Bearing Status Weight Bearing Status Weight Bear as Tolerated Allowed Weight Bearing Amount (enter % LLE WBAT or #) (%) M3 PT-IP Subjective Start: 09/17/20 12:31 Freq: NEEDED Status: Active Protocol: Document 09/18/20 09:54 SP (Rec: 09/18/20 10:40 SP [id number]) Subjective Physical Therapy Visit Type Type Treatment Note Visit Start Time 09:54 Visit Stop Time 10:20 Total Visit Minutes 26 Notes Co Tx with OT due to additional assist required during mobility. 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 Pain Behaviors Facial Grimacing,Wincing Pain Management Techniques Elevation,Modification of Treatment,Re-positioning, Timing of Activity with Medications M4 PT-IP Mobility and Gait Start: 09/17/20 12:31 Freq: NEEDED Status: Active Protocol: Document 09/18/20 09:54 SP (Rec: 09/18/20 10:40 SP [id number]) PT-Bed Mobility Assessment Supine to Sit Supine to Sit Maximum Assistance,1 Person Assistance Scooting Scooting to Edge of Bed Maximum Assistance PT-Transfer Assessment Sit to and From Stand Sit to and from Stand Maximum Assistance,2 Person Assistance,Use of Upper Extremities Equipment Transfer Assistive Device Gait Belt,Front Wheeled Walker Orthotic/Prosthetic Devices or Brace: No Transfers Transfer Destination Chair Transfer Technique Stand Step Pivot Transfer Ability Level of Assist Maximum Assistance,2 Person Assistance,Use of Upper Extremities Comments Mobility Comments Pt elevated supine in bed when arrived, she reported premedicated, i instructed post op ex: heel slide Mod A, quad set with tap facilitation , ankle pumps. Supine>sit Max A x1 trunk and LE reposition toward EOB, scoot to EOB Max A x2 for trunk support and each LE forward locomotion with Max cuing and redirection for BUE WB push self support. sitting at EOB CGA- Min A (pt stature small unable to have LE on floor in sitting). Sit> stand Max A x2 with use of fWW , cues for hand placement, cued for wt shift to bear weight into RLE,demonstrates maybe 25%. SPT bed>chair demonstrating RLE lateral scoot and heavy WB into BUE to R and back with slow descent to chair, Mod A to scoot back in chair. Elevated pt's feet with room cushions. Continue to assess progress with acute skilled therapy. Gait Assessment Comments Gait Comments Unable to bear weight into LLE >25% using FWW Max A x2 SPT only. PT-Balance Assessment Sitting Balance and Reactions Static Sitting Balance Ability Fair Dynamic Sitting Balance Ability Poor Standing Balance and Reactions Static Standing Balance Ability Poor Dynamic Standing Balance Ability Poor Device Used FWW M5 PT-IP Objective Assessments Start: 09/17/20 12:31 Freq: NEEDED Status: Active Protocol: Document 09/17/20 11:25 AB (Rec: 09/17/20 12:45 AB [id number]) Orientation Orientation/Cognition Level of Alertness Alert Orientation Name,Place,Situation Language Function Ability No Deficits Noted Safety Awareness Decreased Safety Awareness Memory Description Short Term Impaired Gross Range of Motion Lower Extremity ROM Impairments R knee flexion: ~ 40 deg L knee flexion: ~ 50 deg L knee extension: lacking ~ 15 deg to 0 (+) R knee crepitus with ROM Strength Lower Extremity Strength Assessment Bilaterally Impaired Comments Strength Comments RLE: 3+/5 LLE: 3-/5 Coordination Assessment Gross Coordination Gross Coordination WNL Sensation Assessment Sensation Gross Sensation WNL Muscle Tone Muscle Tone WNL Yes M6 PT-IP Treatment Start: 09/17/20 12:31 Freq: NEEDED Status: Active Protocol: Document 09/18/20 09:54 SP (Rec: 09/18/20 10:40 SP [id number]) Physical Therapy Treatment Exercises Exercises Ankle Pumps,Quad Sets,Heel Slides,Supine Hip Abduction Knee ROM Measurement 70 deg AAROM Education Education Provided Precautions,Weight Bearing Status,Safety M7 PT-IP Assessment and Plan Start: 09/17/20 12:31 Freq: NEEDED Status: Active Protocol: Document 09/18/20 09:54 SP (Rec: 09/18/20 10:40 SP [id number]) PT Summary Assessment and Plan Potential Rehabilitation Potential Good Status of Condition at Evaluation Evolving Summary Impairments Pain,ROM,Strength,Balance, Coordination,Sensation,Tone, Cognition,Bed Mobility, Transfers,Gait,Activity Tolerance Progress Towards Goals Slow Progress due to Pain,Slow Progress due to Medical Issues,Slow Progress due to Activity Tolerance Assessment Summary Pt requires increase assist max x1-2 person during bed mob , Max x2 for scoot to EOB, sit <> stand and SPT only using FWW. pt will need SNF rehab to improve strength and mobility independence. Goals Bed Mobility Goal Contact Guard Assistance Transfer Goal Contact Guard Assistance,Front Wheeled Walker Gait Goal Contact Guard Assistance,Front Wheel Walker Gait Distance 50 Other Goals improve bed mobility, transfers and ambulation using FWW 100 ft SBA Days to Meet Goals 5 Frequency of Treatment Frequency Of Treatment Twice a Day Treatment Plan Physical Therapy Treatment Plan Bed Mobility Training,Transfer Training,Gait Training, Therapeutic Exercise,Balance Retraining,Post Op Education, Discharge Planning,Hot or Cold Pack,Neuromuscular Re-ed, Coordination Retraining,Manual Therapy Precautions Other Precautions WBAT LLE Recommendations To Nursing Amount of Assist Needed Mechanical Lift Discharge Recommendations PT Discharge Recommendations SNF Rehab Transportation Needs at Discharge Wheelchair/Cabulance
--- NOTE | 2020-09-18 10:30 | OT.IP.EVAL ---
Current Diagnoses Unilateral primary osteoarthritis, left knee (09/16/20) Surgery Performed Operation Date: 09/16/20 09:45 Actual Procedures p Total Knee Arthroplasty(Left) - Mahogany Stout MD Past Medical History (Last Reviewed 09/18/20 @ 16:17 by Dakota Mckeon PA-C) Anemia Anxiety Atypical chest pain Cataracts, bilateral CKD (chronic kidney disease), stage IV Congestive heart failure CVA (cerebral vascular accident) Diabetes Diabetic macular edema Diabetic neuropathy Diabetic retinopathy Diastolic dysfunction Edema Essential thrombocythemia Essential thrombocytosis Gait disorder GERD (gastroesophageal reflux disease) Glaucoma HTN (hypertension) Hypercholesterolemia Hyponatremia Insomnia Left ventricular hypertrophy Major depressive disorder Osteoarthritis Pain Pseudophakia of left eye Vitreous hemorrhage of right eye Surgical History (Last Reviewed 09/18/20 @ 16:17 by Dakota Mckeon PA-C) History of arthroplasty of left knee (04/01/20) Occupational Therapy Inpatient Evaluation/Re-Eval M1 PT/OT-IP Prior Functional Status Start: 09/17/20 12:31 Freq: NEEDED Status: Active Protocol: Document 09/18/20 09:58 [facility] (Rec: 09/18/20 17:08 [facility] [id number]) Medical Review Prior Functional Status Medical History Reviewed Yes Communication able to make needs known Mobility and Gait pt stated that she is modified independent with all mobilities and ambulation using 4WW; stated that she is limited with ambulation inside her apartment/room due to her knee pain Activities of Daily Living and IADL's Pt states prior able to do all her basic ADL's and states has staff give her medications and assist with cleaning needs. Social History Household Members spouse,other Living Arrangements Assisted Living Number of Stairs To Enter/Railing? Pt lives at [facility] on 2nd floor apartment and has an elevator to get to her floor. Home Environment Standard Height Toilet,Walk in Shower,Elevator Home Equipment Front Wheel Walker,Four Wheel Walker,Shower Seat with Backrest,Hand Held Shower,Grab Bars Near Toilet,Grab Bars In Shower Additional Social History Comment has a transfer pole next to her bed on the L M2 OT-IP Current Condition Start: 09/18/20 14:19 Freq: Status: Active Protocol: Document 09/18/20 09:58 [facility] (Rec: 09/18/20 17:08 [facility] [id number]) Occupational Therapy Current Condition Current Condition Evaluation Date 09/18/20 Treatment Diagnosis s/p L TKA, decreased mobility Diagnosis Onset Date 09/16/20 M3 OT- IP Subjective and Pain Start: 09/18/20 14:19 Freq: Status: Active Protocol: Document 09/18/20 09:58 [facility] (Rec: 09/18/20 17:08 [facility] [id number]) OT- Subjective Occupational Therapy Visit Type Type Initial Evaluation Visit Start Time 09:52 Visit Stop Time 10:30 Total Visit Minutes 38 Occupational Therapy Visit Comments Patient Comments Pt agreed to get up , [employer]ESS JOGGER present due to pt needing extensive assist for mobility needs. Patient/Caregiver Goals TO go to rehab to get better prior to going home. OT Pain Assessment Pain When Pain Assessed During Mobility Pain Present Pain Present Pain Reported Location r knee Intensity 5 Scale Used Numeric (0 - 10) M4 OT- IP ADL's Start: 09/18/20 14:19 Freq: Status: Active Protocol: Document 09/18/20 09:58 [facility] (Rec: 09/18/20 17:08 [facility] [id number]) OT [id number] Comments OT Self-Feeding Comments NOt at meal time. OT ADL-Grooming General Evaluation Grooming Ability Standby Assistance Areas Needing Assistance Retrieving/Set-up of Grooming Items OT ADL-Oral Care General Eval Oral Care Ability Independent OT ADL-Dressing General Eval Lower Body Dressing Ability Maximum Assistance Areas Needing Assistance Socks OT ADL-Toileting Comments OT Toileting Comments Pt not having to go at this time. OT ADL-Bathing Bathing Type Bathing Type Sponge Bath General Evaluation Bathing Ability Moderate Assistance Areas Needing Assistance Wash/Dry Back Comments OT Bathing Comments Pt able to wash her chest,face and arms, and needing assist for her back while seated. M5 OT- IP IADL's Start: 09/18/20 14:19 Freq: Status: Active Protocol: Document 09/18/20 09:58 [facility] (Rec: 09/18/20 17:08 [facility] [id number]) OT-Instrumental Activities of Daily Living Home Safety Awareness Home Safety Comments Pt a bit confused, needing assist to follow directions via concrete commands at this time. Not sure if pt is giving accurate history as she is forgetful, groggy and drowsy. M6 OT- IP Functional Cognition Start: 09/18/20 14:19 Freq: Status: Active Protocol: Document 09/18/20 09:58 [facility] (Rec: 09/18/20 17:08 [facility] [id number]) Cognitive Factors Limiting Selfcare Function Cognitive Ability Level of Alertness Alert,Drowsy Patient Orientation Name,Place,Situation Attention Span Ability Capable of Focused Attention, Unable to Sustain Attention Ability to Follow Commands Able to Follow One Step Commands with Increased Time, Able to Follow One Step Commands with Repetition Memory Description Short Term Impaired Safety Awareness Underestimates Need for Assistance Problem Solving Ability Unable to Identify Errors, Needs Assist to Identify Solutions Cognitive Comments Cognitive Assessment Comments Pt needing cues for safety, FWW use, and step by step commands for mobility at this time. M7 OT- IP Mobility and Balance Start: 09/18/20 14:19 Freq: Status: Active Protocol: Document 09/18/20 09:58 [facility] (Rec: 09/18/20 17:08 [facility] [id number]) OT- Bed Mobility Assessment Rolling Type of Rolling Roll to Right Level of Assistance Maximum Assistance Supine to Sit Supine to Sit Assist Maximum Assistance,2 Person Assistance Scooting Scooting to Edge of Bed Maximum Assistance,2 Person Assistance OT-Transfer Assessment Sit to and From Stand Sit to and from Stand Maximum Assistance,2 Person Assistance Transfers Transfer Ability Maximum Assistance,2 Person Assistance Technique Transfer Destination Bed,Chair Devices Transfer Assistive Devices Gait Belt,Front Wheeled Walker Comments Mobility Comments MAX A X2 , heavy use of arms on the FWW and assist for therapist so able to more her feet. Pt having difficulty to last picker her feet and tended to slide her feet when going to the recliner with FWW. Heavy assist to help ease down to the recliner. OT- Gait Assessment Comments Gait Ability Comments Transfer only at this time. OT- Balance Assessment Sitting Balance and Reactions Static Sitting Balance Ability Fair Dynamic Sitting Balance Ability Poor Standing Balance and Reactions Static Standing Balance Ability Poor Dynamic Standing Balance Ability Poor M8 OT- IP Objective Assessments Start: 09/18/20 14:19 Freq: Status: Active Protocol: Document 09/18/20 09:58 [facility] (Rec: 09/18/20 17:08 [facility] [id number]) OT Gross Range of Motion Upper Extremity Range of Motion Assessment Bilaterally Impaired M9 OT- IP Assessment and Plan Start: 09/18/20 14:19 Freq: Status: Active Protocol: Document 09/18/20 09:58 [facility] (Rec: 09/18/20 17:08 [facility] [id number]) OT Summary Assessment and Plan Potential Rehabilitation Potential Good Analytic Complexity at Evaluation Low Summary OT Impairments Strength,Balance,Functional Cognition,Functional Mobility, Grooming,Dressing,Toileting, Bathing,Toilet Transfers, Shower Transfers,Activity Tolerance Progress Towards Goals Slow Progress due to Pain,Slow Progress due to Activity Tolerance,Slow Progress due to Cognition Assessment Summary Pt low complexity and main barrier are pain and now needing extensive two person assist for all mobility needs. Pt will benefit form skilled rehab prior to going back to her JAIL. Questionable how independent pt was prior as pt a bit groggy and not able to clearly states her prior level of care. Goals Dressing Goal Standby Assistance Toileting Goal Standby Assistance Bathing Goal Standby Assistance Toilet Transfer Goal Standby Assistance Shower Transfer Goal Standby Assistance Days to Meet Goals 20 Frequency of Treatment Frequency Of Treatment Once a Day Treatment Plan OT Treatment Plan ADL Training,Functional Cognition Training,Functional Mobility,Patient/Family Education,Discharge Planning Other Treatment Recommendations and Next Transfer to [facility] with MODA X 2. Treatment Focus Discharge Recommendations OT Discharge Recommendations SNF Rehab Transportation Needs at Discharge Wheelchair/Cabulance
--- NOTE | 2020-09-18 13:03 | PC.NURSE ---
Patient denies pain at this time, sitting up in bed eating lunch. Patient had a BG of 55, [place] Juice was given then rechecked 15 minutes later and was 71. Lunch tray came, patient started eating lunch and was given more orange juice with an apple sauce. Patient now has a BG of 153. Patient is comfortable in bed.
--- NOTE | 2020-09-18 13:51 | CM.DPNOTE ---
Faxed vaccine card to [place] [facility] per Nidhi on 09/18/20 and received fax confirmation. Delia Gotti CM Asst.
--- NOTE | 2020-09-18 15:30 | PT.IPTN ---
Current Diagnoses Unilateral primary osteoarthritis, left knee (09/16/20) Surgery Performed Operation Date: 09/16/20 09:45 Actual Procedures p Total Knee Arthroplasty(Left) - Mahogany Stout MD Physical Therapy Treatment Note M2 PT-IP Current Condition Start: 09/17/20 12:31 Freq: NEEDED Status: Active Protocol: Document 09/17/20 11:25 AB (Rec: 09/17/20 12:45 AB [id number]) Physical Therapy Current Condition Current Condition Evaluation Date 09/17/20 Treatment Diagnosis s/p L TKA; difficulty in walking Onset Date 09/16/20 Weight Bearing Status Weight Bearing Status Weight Bear as Tolerated Allowed Weight Bearing Amount (enter % LLE WBAT or #) (%) M3 PT-IP Subjective Start: 09/17/20 12:31 Freq: NEEDED Status: Active Protocol: Document 09/18/20 15:30 AW (Rec: 09/18/20 16:35 AW [id number]) Subjective Physical Therapy Visit Type Type Treatment Note Visit Start Time 15:13 Visit Stop Time 15:30 Total Visit Minutes 17 Number of DIRECTOR CLIENT Visits 0 Physical Therapy Visit Comments Patient Comments Refusing to get out of bed but willing to do supine exercises. Therapy Pain Assessment Pain When Pain Assessed At Rest Pain Present Pain Present Pain Reported M4 PT-IP Mobility and Gait Start: 09/17/20 12:31 Freq: NEEDED Status: Active Protocol: Document 09/18/20 15:30 AW (Rec: 09/18/20 16:35 AW [id number]) PT-Bed Mobility Assessment Supine to Sit Supine to Sit Maximum Assistance,1 Person Assistance Sit to Supine Sit to Supine Maximum Assistance,1 Person Assistance,Bedrails PT-Transfer Assessment Comments Mobility Comments Pt was moaning in bed as PT arrived. She was not willing to get out of bed but agreed to sit up on the edge. Max assist required for supine <> sit. Pt then agreed to do supine exercises as below. She was left with call light and tray table in reach. PT-Balance Assessment Sitting Balance and Reactions Static Sitting Balance Ability Fair Dynamic Sitting Balance Ability Poor M5 PT-IP Objective Assessments Start: 09/17/20 12:31 Freq: NEEDED Status: Active Protocol: Document 09/17/20 11:25 AB (Rec: 09/17/20 12:45 AB [id number]) Orientation Orientation/Cognition Level of Alertness Alert Orientation Name,Place,Situation Language Function Ability No Deficits Noted Safety Awareness Decreased Safety Awareness Memory Description Short Term Impaired Gross Range of Motion Lower Extremity ROM Impairments R knee flexion: ~ 40 deg L knee flexion: ~ 50 deg L knee extension: lacking ~ 15 deg to 0 (+) R knee crepitus with ROM Strength Lower Extremity Strength Assessment Bilaterally Impaired Comments Strength Comments RLE: 3+/5 LLE: 3-/5 Coordination Assessment Gross Coordination Gross Coordination WNL Sensation Assessment Sensation Gross Sensation WNL Muscle Tone Muscle Tone WNL Yes M6 PT-IP Treatment Start: 09/17/20 12:31 Freq: NEEDED Status: Active Protocol: Document 09/18/20 15:30 AW (Rec: 09/18/20 16:35 AW [id number]) Physical Therapy Treatment Exercises Exercises Ankle Pumps,Quad Sets,Heel Slides,Supine Hip Abduction Knee ROM Measurement ~70 deg AAROM Education Education Provided Weight Bearing Status,Safety Other Treatments Other Treatment Performed Manual stretching for left gastroc and hamstring while pt maintained in passive extension hang. M7 PT-IP Assessment and Plan Start: 09/17/20 12:31 Freq: NEEDED Status: Active Protocol: Document 09/18/20 15:30 AW (Rec: 09/18/20 16:35 AW [id number]) PT Summary Assessment and Plan Potential Rehabilitation Potential Good Summary Impairments Pain,ROM,Strength,Balance, Coordination,Sensation,Tone, Cognition,Bed Mobility, Transfers,Gait,Activity Tolerance Progress Towards Goals Slow Progress due to Pain,Slow Progress due to Medical Issues,Slow Progress due to Activity Tolerance Assessment Summary Pt initially refusing all intervention but eventually agreed to sit up EOB and then to complete supine exercises. Pt will require SNF rehab to improve strength and mobility independence. Goals Bed Mobility Goal Contact Guard Assistance Transfer Goal Contact Guard Assistance,Front Wheeled Walker Gait Goal Contact Guard Assistance,Front Wheel Walker Gait Distance 50 Other Goals improve bed mobility, transfers and ambulation using FWW 100 ft SBA Days to Meet Goals 5 Frequency of Treatment Frequency Of Treatment Twice a Day Treatment Plan Physical Therapy Treatment Plan Bed Mobility Training,Transfer Training,Gait Training, Therapeutic Exercise,Balance Retraining,Post Op Education, Discharge Planning,Hot or Cold Pack,Neuromuscular Re-ed, Coordination Retraining,Manual Therapy Precautions Other Precautions WBAT LLE Recommendations To Nursing Amount of Assist Needed Mechanical Lift Discharge Recommendations PT Discharge Recommendations SNF Rehab Transportation Needs at Discharge Wheelchair/Cabulance
--- NOTE | 2020-09-18 16:14 | PC.NURSE ---
Addendum entered by Violet Cervantes R.N. 09/18/20 23:29: No change in neurovascular status this evening shift. LLE supported on single lengthwise pillow while in bed. Ice to left knee. Addendum entered by Violet Cervantes R.N. 09/18/20 20:14: Quickly to sleep following oxycodone to manage pain. Dinner held as well as insulin pending ingestion of evening meal. Pt awakens tearful calling for bedpan and reports LLE is stuck. Requires assistance to move LLE in bed. Ice to knee. Original Note: Pt awake, alert in bed @ beginning of shift. P.T. in to see pt followed by Dr. Finch. Pt requests bedpan and this was provided. Pt c/o 02/01 left knee pain and describes this as pain. Pt keeps left knee bent and this magazine writer encouraged pt to keep knee straight on bed and removed pillow under leg. Ice to site and oxycodone administered as per emar. Pt reports sensation to BL LE's intact. SCD to right leg. Aquacel dressing with small area shadowy drainage present left knee.
--- NOTE | 2020-09-18 16:17 | P.PN_ITS ---
Subjective Subjective Date Patient Seen: 09/18/20 Time Patient Seen: 16:17 Interval history: Pain moderate. Denies fever or chills. No nausea or vomiting. Exam Vital Signs (past 8 hours): - 09/18/20 09:10 09/18/20 13:05 Temperature 97.9 F Pulse Rate 64 Respiratory Rate 16 Blood Pressure 163/88 H 110/51 L Pulse Oximetry 95 Oxygen Delivery Method Room Air Oxygen Flow Rate 0 Narrative Exam Narrative: Pleasant 75-year-old female resting comfortably in bed in no apparent distress. Left knee dressing is clean, dry and intact. Sensation grossly intact to light touch bilateral lower extremities. Motor function intact bilateral lower extremities. Objective Labs Result Diagrams: 09/17/20 04:20 09/17/20 04:20 [facility] Medical History Anemia Anxiety Atypical chest pain Cataracts, bilateral CKD (chronic kidney disease), stage IV Congestive heart failure CVA (cerebral vascular accident) Diabetes Diabetic macular edema Diabetic neuropathy Diabetic retinopathy Diastolic dysfunction Edema Essential thrombocythemia Essential thrombocytosis Gait disorder GERD (gastroesophageal reflux disease) Glaucoma HTN (hypertension) Hypercholesterolemia Hyponatremia Insomnia Left ventricular hypertrophy Major depressive disorder Osteoarthritis Pain Pseudophakia of left eye Vitreous hemorrhage of right eye Surgical History History of arthroplasty of left knee (04/01/20) Social History household members: spouse and other Smoking Status: Former smoker alcohol intake: never Assessment & Plan Post-op Postoperative Procedures: Procedures Operation Date: 09/16/20 09:45 Actual Procedures Side Surgeon p Total Knee Arthroplasty Left Mahogany Stout MD postop day 2 status post left total knee arthroplasty. Mobilize with physical therapy. Weightbearing as tolerated. Appreciate hospitalist following patient with complex medical history. Patient does live alone and will need assisted facility placement.
--- NOTE | 2020-09-18 17:03 | P.PN_ITS ---
Subjective Subjective Date Patient Seen: 09/18/20 Time Patient Seen: 17:03 Interval history: Her pain is currently poorly controlled, but better today. At time of encounter patient had worked with therapy and was in a lot of pain at that time. Otherwise she has no complaints. No chest pain, shortness of breath, fevers/chills. Exam Vital Signs (past 8 hours): - 09/18/20 09:10 09/18/20 13:05 Temperature 97.9 F Pulse Rate 64 Respiratory Rate 16 Blood Pressure 163/88 H 110/51 L Pulse Oximetry 95 Oxygen Delivery Method Room Air Oxygen Flow Rate 0 Narrative Exam Narrative: GEN: no acute distress HEENT: no JVD, moist mucous membranes NECK: trachea midline, no JVD CV: regular rate and rhythm with no murmurs PULM: clear bilaterally, no wheezes, rhonchi, rales ABD: soft, nontender, nondistended, no organomegaly EXT: left knee bandaged, both legs warm and well perfused with normal sensation, pulses present NEURO: awake and alert, moving all extremities PSYCH: pleasant mood, cooperative Objective Labs Result Diagrams: 09/17/20 04:20 09/17/20 04:20 [facility] Medical History Anemia Anxiety Atypical chest pain Cataracts, bilateral CKD (chronic kidney disease), stage IV Congestive heart failure CVA (cerebral vascular accident) Diabetes Diabetic macular edema Diabetic neuropathy Diabetic retinopathy Diastolic dysfunction Edema Essential thrombocythemia Essential thrombocytosis Gait disorder GERD (gastroesophageal reflux disease) Glaucoma HTN (hypertension) Hypercholesterolemia Hyponatremia Insomnia Left ventricular hypertrophy Major depressive disorder Osteoarthritis Pain Pseudophakia of left eye Vitreous hemorrhage of right eye Surgical History History of arthroplasty of left knee (04/01/20) Social History household members: spouse and other Smoking Status: Former smoker alcohol intake: never Assessment & Plan Assessment & Plan narrative: Ms. Marley is a 75W with PMH CHF, CKD stage 4, DM, HTN, hx CVA who is POD #1 from left knee TKA. 1. CKD stage 4 -creatinine at baseline -no nephrotoxins ordered -keep blood pressure under control -stopped fluids 09/17 AM if continues with clinical stability 2. CHF, diastolic, chronic -patient currently euvolemic -no current evidence of exacerbation. She has resumed home medications. 3. Hypertension -home medications ordered -blood pressure elevated suspect secondary to significant pain initially, improved slightly today. No current changes needed at this time. 4. Hyperlipidemia -continue statin 5. Diabetes -continued on home dose of insulin with 16U lantus and prandial insulin -qachs glucose checks while admitted, no medication changes necessary at this time. 6. Hx of CVA -continue aspirin, plavix, and statin -PT/OT as patient has natural baseline gait imbalance 7. Essential thrombocytosis -on anagrelide, can reorder on DC Code status: Full, proxy is son Al Patient appears medically stable at this time with no ongoing needs from hospitalist service at this time and will sign off. Do not hesitate to contact hospitalist service with additional questions or concerns or if needs arise.
[2020-09-18] MEDS: INSULIN LISPRO 100 UNIT/ML 3ML VIAL SUBCUT (19:12)
[2020-09-18] MEDS: ATORVASTATIN 20 MG TABLET 10 MG PO (21:41)
[2020-09-18] MEDS: SODIUM CHLORIDE 0.9% FLUSH 10 ML IV ×2 (21:45→23:33)
[2020-09-19] MEDS: OXYCODONE IR 10 MG TABLET PO (03:07)
[2020-09-19 03:19] VITALS: BP 127/56; PULSE 64; RESP 16; TEMP 36.4; O2SAT 95
[2020-09-19 07:25] VITALS: BP 155/68; PULSE 65; RESP 16; TEMP 36.7; O2SAT 95
[2020-09-19] MEDS: ACETAMINOPHEN 325 MG TABLET 650 MG PO ×2 (08:35→14:47)
[2020-09-19] MEDS: DOXAZOSIN 4 MG TABLET PO (08:35)
[2020-09-19] MEDS: DOCUSATE 100 MG CAPSULE PO (08:35)
[2020-09-19] MEDS: ASPIRIN EC 81 MG TABLET PO (08:35)
[2020-09-19] MEDS: AMLODIPINE 5 MG TABLET 7.5 MG PO (08:36)
[2020-09-19] MEDS: SERTRALINE 50 MG TABLET 100 MG PO (08:36)
[2020-09-19] MEDS: CLOPIDOGREL 75 MG TABLET PO (08:36)
[2020-09-19] MEDS: MULTIVITAMIN 1 TABLET 1 TAB PO (08:36)
[2020-09-19] MEDS: LABETALOL 100 MG TABLET 300 MG PO (08:37)
[2020-09-19] MEDS: FERROUS SULFATE 325 MG TABLET PO (08:37)
[2020-09-19] MEDS: ISOSORBIDE MONONITRATE ER 30 MG TABLET PO (08:37)
[2020-09-19] MEDS: MAGNESIUM OXIDE 400 MG TABLET 800 MG PO (08:37)
[2020-09-19] MEDS: OXYCODONE IR 5 MG TABLET PO ×3 (08:37→14:46)
[2020-09-19] MEDS: predniSONE 5 MG TABLET PO (08:37)
[2020-09-19] MEDS: FUROSEMIDE 20 MG TABLET PO (08:37)
[2020-09-19] MEDS: DICLOFENAC 1% GEL 100 GM 1 APPLIC TOP (08:40)
--- NOTE | 2020-09-19 09:28 | PM.PNPO.1 ---
Subjective Subjective Date Patient Seen: 09/19/20 Time Patient Seen: 09:29 Interval history: Patient states that she is in moderate discomfort at rest. She notes that she feels her pain level has not been improving following surgery. Also explains that she has had difficulty ambulating with physical therapy following surgery. She reports good sensation throughout the bilateral lower extremities. At this time the patient denies fever, chills, nausea, chest pain, shortness of breath, or urinary retention. Exam Vital Signs (past 8 hours): - 09/19/20 03:19 09/19/20 07:25 Temperature 97.5 F L 98.0 F Pulse Rate 64 65 Respiratory Rate 16 16 Blood Pressure 127/56 L 155/68 H Pulse Oximetry 95 95 Oxygen Delivery Method Room Air Oxygen Flow Rate 0 Narrative Exam Narrative: 75-year-old female postop day 3 status post left total knee arthroplasty. Patient is resting in bed, is in mild distress, is alert and oriented x3. When asked her pain level the patient responded with an 11/10. Good sensation appreciated throughout the bilateral lower extremities to light touch. Skin is warm and dry, and the skin surrounding the incision site is free of erythema, warmth, induration, or discharge. Aquacel dressing over the incision site is clean and dry. Ankle dorsiflexion, plantar flexion, eversion, inversion performed bilaterally without difficulty or discomfort. Palpable pulses appreciated, capillary refill less than 2 seconds. Calves are soft and nontender, negative Homans sign. No other signs of DVT appreciated. Const General: cooperative, healthy appearing and comfortable Resp Effort & Inspection: normal respiratory effort and able to speak in complete sentences Skin General: no rashes or lesions noted Objective Labs Result Diagrams: 09/17/20 04:20 09/17/20 04:20 [facility] Medical History Anemia Anxiety Atypical chest pain Cataracts, bilateral CKD (chronic kidney disease), stage IV Congestive heart failure CVA (cerebral vascular accident) Diabetes Diabetic macular edema Diabetic neuropathy Diabetic retinopathy Diastolic dysfunction Edema Essential thrombocythemia Essential thrombocytosis Gait disorder GERD (gastroesophageal reflux disease) Glaucoma HTN (hypertension) Hypercholesterolemia Hyponatremia Insomnia Left ventricular hypertrophy Major depressive disorder Osteoarthritis Pain Pseudophakia of left eye Vitreous hemorrhage of right eye Surgical History History of arthroplasty of left knee (04/01/20) Social History household members: spouse and other Smoking Status: Former smoker alcohol intake: never Assessment & Plan Post-op Postoperative Procedures: Procedures Operation Date: 09/16/20 09:45 Actual Procedures Side Surgeon p Total Knee Arthroplasty Left Mahogany Stout MD Postoperative day: 3 Postoperative status: marginal pain control Postoperative plan: ambulate Postoperative plan narrative: Patient is to continue working on ambulation with the assistance of a front wheeled walker with physical therapy. Current pain management regimen is to be continued. Patient is to continue the use of sequential compression devices and aspirin 81 mg twice daily for DVT prophylaxis. Per discussion with care management patient is likely to be transferred to [facility] today. Time Spent With Patient Time with patient: less than 15 minutes
--- NOTE | 2020-09-19 09:46 | P.DS_ITS ---
History of Present Illness <Sunny Perales PA-C - Last Filed: 09/19/20 09:50> History of Present Illness Date Patient Seen: 09/19/20 Time Patient Seen: 09:46 Chief complaint: OPB Narrative: The patient has had progressively worsening left knee pain with radiographic changes consistent with arthritis. Non-operative management has failed and the patient has requested total knee replacement. The risks, benefits and alternatives to surgery were discussed with the patient prior to proceeding. Risks discussed included, but were not limited to, failure to relieve pain, stiffness, infection, nerve damage, deep venous thrombosis, pulmonary embolism, stroke, coma, heart attack, permanent paralysis and , as well as the potential need for eventual revision of the prosthetic. She also has multiple multiple medical comorbidities which I anticipate will require inpatient admission close monitoring and probable discharge to an ECF. We have been medically stabilizing her for about a year due to her mild renal failure, she has seen a lockstitch waistband setter for workup of her heart and is were carefully with her primary care practitioner to stabilize her other medical problem. She also has fairly severe right knee osteoarthritis. Discharge Providers <Sunny Perales PA-C - Last Filed: 09/19/20 09:50> Provider Date of admission: 09/16/20 07:45 Consults: 09/16/20 07:54 Consult to Anesthesiology Routine Comment: Consulting Provider: Anesthesiologist Reason for consultation: Regional block for post operative pain control 09/16/20 13:38 Consult to Hospitalist Service Routine Comment: Consulting Provider: Mick Ribeiro Reason for consultation: diabetes, renal issues Has provider been notified: Yes 09/16/20 14:44 Consult to Discharge Planning Routine Comment: Consult to Physical Therapy Evaluate & Treat Comment: Physician Instructions: postop TKA protocol Consult to Respiratory Therapy Evaluate & Treat Comment: Physician Instructions: Evaluate and treat 09/17/20 13:09 Consult to Occupational Therapy Evaluate & Treat Comment: Physician Instructions: Evaluate and treat Discharge provider: Sunny Perales PA-C <Meghann Sorto MD - Last Filed: 09/19/20 14:25> Provider Discharge Date: 09/19/20 Summary <Sunny Perales PA-C - Last Filed: 09/19/20 09:50> Hospital Course Discharge Diagnosis: Left knee osteoarthritis Status post left total knee arthroplasty Hospital Course: Patient was admitted to the hospital following the above-listed procedure for the above-listed diagnosis. Following the procedure the patient has struggled to progress with physical therapy and she has reported marginal pain control. Throughout her stay in the hospital the patient has denied fever, chills, nausea, chest pain, shortness of breath, or urinary retention. Patient has reported good sensation throughout the bilateral lower extremities. Dressing over the incision site has remained intact following the procedure. Patient has been weight-bearing as tolerated when she has worked with physical therapy, however she has failed to progress as expected following surgery. Status at Discharge Cognitive/behavioral status at discharge: oriented Functional status at discharge: uses cane/walker Overall status at discharge: patient is progressing back to baseline Exam <MIGUEL Spangler Last Filed: 09/19/20 09:50> Vital Signs (past 8 hours): - 09/19/20 03:19 09/19/20 07:25 Temperature 97.5 F L 98.0 F Pulse Rate 64 65 Respiratory Rate 16 16 Blood Pressure 127/56 L 155/68 H Pulse Oximetry 95 95 Oxygen Delivery Method Room Air Oxygen Flow Rate 0 Narrative Exam Narrative: 75-year-old female postop day 3 status post left total knee arthroplasty. Patient is resting in bed, is in mild distress, is alert and oriented x3. When asked her pain level the patient responded with an 11/10. Good sensation appreciated throughout the bilateral lower extremities to light touch. Skin is warm and dry, and the skin surrounding the incision site is free of erythema, warmth, induration, or discharge. Aquacel dressing over the incision site is clean and dry. Ankle dorsiflexion, plantar flexion, eversion, inversion performed bilaterally without difficulty or discomfort. Palpable pulses appreciated, capillary refill less than 2 seconds. Calves are soft and nontender, negative Homans sign. No other signs of DVT appreciated. Const General: cooperative, healthy appearing and comfortable Resp Effort & Inspection: normal respiratory effort and able to speak in complete sentences Skin General: no rashes or lesions noted Objective <MIGUEL Spangler Last Filed: 09/19/20 09:50> Labs Result Diagrams: 09/17/20 04:20 09/17/20 04:20 PFSH <MIGUEL Spangler Last Filed: 09/19/20 09:50> Medical History Anemia Anxiety Atypical chest pain Cataracts, bilateral CKD (chronic kidney disease), stage IV Congestive heart failure CVA (cerebral vascular accident) Diabetes Diabetic macular edema Diabetic neuropathy Diabetic retinopathy Diastolic dysfunction Edema Essential thrombocythemia Essential thrombocytosis Gait disorder GERD (gastroesophageal reflux disease) Glaucoma HTN (hypertension) Hypercholesterolemia Hyponatremia Insomnia Left ventricular hypertrophy Major depressive disorder Osteoarthritis Pain Pseudophakia of left eye Vitreous hemorrhage of right eye Surgical History History of arthroplasty of left knee (04/01/20) Social History household members: spouse and other Smoking Status: Former smoker alcohol intake: never Discharge Assessment & Plan <Sunny Perales PA-C - Last Filed: 09/19/20 09:50> Assessment and Plan Assessment: Status post left total knee arthroplasty. [facility]qu[facility] Plan of Treatment: Following transfer patient is to continue working on ambulation in a weight- bearing as tolerated status with the assistance of a front wheeled walker. Pain management regimen is to be continued as prescribed. Dressing over the incision site is to remain intact for 2 weeks. Aspirin 81 mg twice daily is to be continued for 6 weeks for DVT prophylaxis. Patient is to contact clinic with any concerns or questions. Any signs of increased redness, swelling, warmth, pain, or discharge from around the incision site should be reported to the clinic. First postoperative visit in clinic is scheduled for 2 weeks following discharge from hospital. Patient is to continue outpatient physical therapy following discharge. Discharge Plan Discharge Plan Patient Disposition: SNF Transfer to: [facility] Provider Discharge Comment: Patient cleared for transfer pending PT clearance. Discharge orders & Medications Prescriptions: New acetaminophen 325 mg Tablet 650 mg PO TID Qty: 40 RF: 0 aspirin 81 mg Tablet,Delayed Release (Dr/Ec) 81 mg PO BID Qty: 84 RF: 0 docusate sodium [DOK] 100 mg Capsule 100 mg PO BID Qty: 60 RF: 0 oxycodone 5 mg tablet 5 mg PO Q4H PRN (Reason: pain) Qty: 50 RF: 0 Continued hydrocodone-acetaminophen 5-325 mg Tablet 2 tab PO Q4-6H PRN (Reason: Pain) RF: 0 clopidogrel 75 mg Tablet 75 mg PO DAILY RF: 0 anagrelide 0.5 mg Capsule 1 mg PO Q12H RF: 0 isosorbide mononitrate 30 mg Tablet Extended Release 24 Hr 30 mg PO DAILY RF: 0 sertraline 100 mg Tablet 100 mg PO DAILY RF: 0 prednisone 5 mg Tablet 5 mg PO DAILY RF: 0 lidocaine 4 % Cream 1 applic TOPICAL QID RF: 0 amlodipine 5 mg Tablet 7.5 mg PO DAILY RF: 0 alprazolam 0.25 mg Tablet 0.25 mg PO BID PRN (Reason: Anxiety) RF: 0 simvastatin 20 mg Tablet 20 mg PO BEDTIME RF: 0 ferrous sulfate 325 mg (65 mg iron) Tablet 325 mg PO DAILY RF: 0 doxazosin 4 mg Tablet 4 mg PO DAILY RF: 0 furosemide 20 mg Tablet 20 mg PO BID RF: 0 labetalol 100 mg Tablet 300 mg PO BID RF: 0 albuterol sulfate 90 mcg/actuation Hfa Aerosol Inhaler 1 inh INHALATION QID PRN (Reason: Shortness Of Breath) RF: 0 multivitamin Capsule 1 cap PO DAILY RF: 0 docusate sodium 100 mg Tablet 100 mg PO DAILY PRN (Reason: Constipation) RF: 0 insulin aspart U-100 [Novolog Flexpen U-100 Insulin] 100 unit/mL (3 mL) Insulin Pen 6 unit SUBCUT BID RF: 0 Lantus Solostar U-100 Insulin 100 unit/mL (3 mL) Insulin Pen 16 unit SUBCUT DAILY RF: 0 magnesium oxide 400 mg magnesium Capsule 800 mg PO DAILY RF: 0 Diet/Activity/Treatments Diet: Diet as Tolerated Activity: Weight-bearing as tolerated with the assistance of a front wheeled walker. Skin/Wound/Dressing Care Report to your healthcare provider any signs of infection, such as:: chills, fever, night sweats, increased pain, unusual drainage and unusual redness Dressing: Dressing over the incision site is to remain intact for 2 weeks. Contact clinic if the dressing becomes damaged or soiled. Other wound treatment: Avoid placing topical ointments over the incision site. Avoid soaking the incision site. Special Rehabilitation Services Reason for rehabilitation: Post-operative therapy Rehab type: Physical therapy and Occupational therapy Restrictions to mobility: Weight-bearing as tolerated with the assistance of a front wheeled walker. Visit Report/Discharge Packet Instructions: DI for Knee Replacement, DI for Prescription Opioid Use Stand Alone Forms: Surgery Discharge
--- NOTE | 2020-09-19 10:13 | PC.NURSE ---
Assess- Patient is alert and oriented x3, given 1 oxycodone to patient and helpful. L.knee dressing wnl and ppx2. Patient has been sleepy. AM blood sugar 62, orange juice given and up to 83. Patient complains of her pain 10/10 but then falls asleep. Patient given 5mg and will be do again shortly, explained to patient that pain medication will help with discomfort but not completely take her pain away. She does not seem to understand this, will continue to do other measures like ice to help discomfort until next pain medication due.
[2020-09-19 11:30] VITALS: BP 130/50; PULSE 58; RESP 16; TEMP 36.6; O2SAT 94
[2020-09-19] MEDS: INSULIN LISPRO 100 UNIT/ML 3ML VIAL 6 UNIT SUBCUT (11:57)
[2020-09-19] MEDS: INSULIN LISPRO 100 UNIT/ML 3ML VIAL SUBCUT (11:58)
--- NOTE | 2020-09-19 12:12 | PT.IPTN ---
Current Diagnoses Unilateral primary osteoarthritis, left knee (09/16/20) Surgery Performed Operation Date: 09/16/20 09:45 Actual Procedures p Total Knee Arthroplasty(Left) - Mahogany Stout MD Physical Therapy Treatment Note M2 PT-IP Current Condition Start: 09/17/20 12:31 Freq: NEEDED Status: Active Protocol: Document 09/17/20 11:25 AB (Rec: 09/17/20 12:45 AB [id number]) Physical Therapy Current Condition Current Condition Evaluation Date 09/17/20 Treatment Diagnosis s/p L TKA; difficulty in walking Onset Date 09/16/20 Weight Bearing Status Weight Bearing Status Weight Bear as Tolerated Allowed Weight Bearing Amount (enter % LLE WBAT or #) (%) M3 PT-IP Subjective Start: 09/17/20 12:31 Freq: NEEDED Status: Active Protocol: Document 09/19/20 11:48 CLB (Rec: 09/19/20 12:55 CLB [id number]) Subjective Physical Therapy Visit Type Type Treatment Note Visit Start Time 11:48 Visit Stop Time 12:12 Total Visit Minutes 24 Notes Co tx wit OT Number of AFF[employer]ET[employer] SPECIALIST Visits 1 Physical Therapy Visit Comments Patient Comments Needing to [place] [facility] and agreed to sit up in chair for lunch Therapy Pain Assessment Pain When Pain Assessed At Rest Pain Present Pain Present Pain Reported M4 PT-IP Mobility and Gait Start: 09/17/20 12:31 Freq: NEEDED Status: Active Protocol: Document 09/19/20 11:48 CLB (Rec: 09/19/20 12:55 CLB [id number]) PT-Bed Mobility Assessment Supine to Sit Supine to Sit Maximum Assistance,2 Person Assistance Scooting Scooting to Edge of Bed Maximum Assistance PT-Transfer Assessment Sit to and From Stand Sit to and from Stand Moderate Assistance,2 Person Assistance,Use of Upper Extremities Equipment Transfer Assistive Device Gait Belt,Front Wheeled Walker Orthotic/Prosthetic Devices or Brace: No Transfers Transfer Destination Chair,Bedside Commode Transfer Technique Stand Step Pivot Transfer Ability Level of Assist Maximum Assistance,2 Person Assistance,Use of Upper Extremities Comments Mobility Comments Pt performed HS in bed and was able to move LLE towards the EOB with Min A. Bed was tilted to 5 degrees to assist pt in touching feet to floor as pt is 55. Pt stood Mod A x2 and transferred to [facility] using stand step pivot with difficulty advancing RLE and requiring cues to push through arms on FWW while advancing LLE. Pt then stood Mod A from BS requiring Max A for standing balance while OT performed pericare. Pt began stand step pivot to chair from [facility] but was unable to complete transfer due to activity tolerance and chair was brought behind pt to sit. Pt then required Max A x2 to scoot back in chair. Pt left in chair with all needs within reach. Gait Assessment Comments Gait Comments transfer only M5 PT-IP Objective Assessments Start: 09/17/20 12:31 Freq: NEEDED Status: Active Protocol: Document 09/17/20 11:25 AB (Rec: 09/17/20 12:45 AB [email or web address]) Orientation Orientation/Cognition Level of Alertness Alert Orientation Name,Place,Situation Language Function Ability No Deficits Noted Safety Awareness Decreased Safety Awareness Memory Description Short Term Impaired Gross Range of Motion Lower Extremity ROM Impairments R knee flexion: ~ 40 deg L knee flexion: ~ 50 deg L knee extension: lacking ~ 15 deg to 0 (+) R knee crepitus with ROM Strength Lower Extremity Strength Assessment Bilaterally Impaired Comments Strength Comments RLE: 3+/5 LLE: 3-/5 Coordination Assessment Gross Coordination Gross Coordination WNL Sensation Assessment Sensation Gross Sensation WNL Muscle Tone Muscle Tone WNL Yes M6 PT-IP Treatment Start: 09/17/20 12:31 Freq: NEEDED Status: Active Protocol: Document 09/19/20 11:48 CLB (Rec: 09/19/20 12:55 CLB [id number]) Physical Therapy Treatment Exercises Exercises Quad Sets,Heel Slides M7 PT-IP Assessment and Plan Start: 09/17/20 12:31 Freq: NEEDED Status: Active Protocol: Document 09/19/20 11:48 CLB (Rec: 09/19/20 12:55 CLB [id number]) PT Summary Assessment and Plan Summary Impairments Pain,ROM,Strength,Balance, Coordination,Sensation,Tone, Cognition,Bed Mobility, Transfers,Gait,Activity Tolerance Progress Towards Goals Slow Progress due to Pain,Slow Progress due to Medical Issues,Slow Progress due to Activity Tolerance Assessment Summary Pt requires Max A x2 for all mobility. Due to low activity tolerance and pain pt only able to transfer to BS and chair requiring Max A x2. Pt will require SNF rehab to increase strength and activity tolerance for functional mobility. Goals Bed Mobility Goal Contact Guard Assistance Transfer Goal Contact Guard Assistance,Front Wheeled Walker Gait Goal Contact Guard Assistance,Front Wheel Walker Gait Distance 50 Other Goals improve bed mobility, transfers and ambulation using FWW 100 ft SBA Days to Meet Goals 5 Frequency of Treatment Frequency Of Treatment Twice a Day Treatment Plan Physical Therapy Treatment Plan Bed Mobility Training,Transfer Training,Gait Training, Therapeutic Exercise,Balance Retraining,Post Op Education, Discharge Planning,Hot or Cold Pack,Neuromuscular Re-ed, Coordination Retraining,Manual Therapy Precautions Other Precautions WBAT LLE Recommendations To Nursing Amount of Assist Needed Mechanical Lift Discharge Recommendations PT Discharge Recommendations SNF Rehab Transportation Needs at Discharge Wheelchair/Cabulance
--- NOTE | 2020-09-19 12:15 | OT.IP.TRT ---
Current Diagnoses Unilateral primary osteoarthritis, left knee (09/16/20) Surgery Performed Operation Date: 09/16/20 09:45 Actual Procedures p Total Knee Arthroplasty(Left) - Mahogany Stout MD Occupational Therapy Treatment Note M2 OT-IP Current Condition Start: 09/18/20 14:19 Freq: Status: Active Protocol: Document 09/18/20 09:58 [facility] (Rec: 09/18/20 17:08 [facility] [id number]) Occupational Therapy Current Condition Current Condition Evaluation Date 09/18/20 Treatment Diagnosis s/p L TKA, decreased mobility Diagnosis Onset Date 09/16/20 M3 OT- IP Subjective and Pain Start: 09/18/20 14:19 Freq: Status: Active Protocol: Document 09/19/20 12:22 [facility] (Rec: 09/19/20 12:33 [facility] [id number]) OT- Subjective Occupational Therapy Visit Type Type Treatment Note Visit Start Time 11:50 Visit Stop Time 12:15 Total Visit Minutes 25 Occupational Therapy Visit Comments Patient Comments Pt wanting to use the bathroom . Patient/Caregiver Goals TO go to rehab to get better prior to going home. OT Pain Assessment Pain When Pain Assessed At Rest Pain Present Pain Present Pain Reported M4 OT- IP ADL's Start: 09/18/20 14:19 Freq: Status: Active Protocol: Document 09/19/20 12:22 [facility] (Rec: 09/19/20 12:33 [facility] [id number]) OT [id number] Comments OT Self-Feeding Comments NOt at meal time. OT ADL-Grooming Comments OT Grooming Comments Assist to put up her hair. OT ADL-Dressing General Eval Lower Body Dressing Ability Maximum Assistance Areas Needing Assistance Shoes OT ADL-Toileting General Evaluation Toileting Ability Maximum Assistance Areas Needing Assistance Manage Clothing,Perform Perineal Hygiene Comments OT Toileting Comments One person to help stand pt with FWW and another for all brief and hygiene needs. M5 OT- IP IADL's Start: 09/18/20 14:19 Freq: Status: Active Protocol: Document 09/18/20 09:58 [facility] (Rec: 09/18/20 17:08 [facility] [id number]) OT-Instrumental Activities of Daily Living Home Safety Awareness Home Safety Comments Pt a bit confused, needing assist to follow directions via concrete commands at this time. Not sure if pt is giving accurate history as she is forgetful, groggy and drowsy. M6 OT- IP Functional Cognition Start: 09/18/20 14:19 Freq: Status: Active Protocol: Document 09/19/20 12:22 [facility] (Rec: 09/19/20 12:33 [facility] [id number]) Cognitive Factors Limiting Selfcare Function Cognitive Ability Level of Alertness Alert,Drowsy Patient Orientation Name,Place,Situation Attention Span Ability Capable of Focused Attention, Unable to Sustain Attention Ability to Follow Commands Able to Follow One Step Commands with Increased Time, Able to Follow One Step Commands with Repetition Memory Description Short Term Impaired Safety Awareness Underestimates Need for Assistance Problem Solving Ability Unable to Identify Errors, Needs Assist to Identify Solutions Cognitive Comments Cognitive Assessment Comments Pt needing step by step cues for transfer with FWW. Pt having difficulty to move her right foot and needing cues to push down on the FWW to help unweight her feet to be able to move. M7 OT- IP Mobility and Balance Start: 09/18/20 14:19 Freq: Status: Active Protocol: Document 09/19/20 12:22 [facility] (Rec: 09/19/20 12:33 [facility] [id number]) OT- Bed Mobility Assessment Rolling Type of Rolling Roll to Left Level of Assistance Maximum Assistance Supine to Sit Supine to Sit Assist Maximum Assistance,2 Person Assistance OT-Transfer Assessment Sit to and From Stand Sit to and from Stand Moderate Assistance,2 Person Assistance Transfers Transfer Ability Maximum Assistance,2 Person Assistance Technique Transfer Destination Bed,Bedside Commode,Chair Devices Transfer Assistive Devices Gait Belt,Front Wheeled Walker Comments Mobility Comments Pt still needing MAXA x2 for transfers assist assist to guide, FWW, balance, and at the end assist to help move her right foot. OT- Gait Assessment Comments Gait Ability Comments Transfer only pending fatigue, nursing still recommend mechnical lift. OT- Balance Assessment Sitting Balance and Reactions Static Sitting Balance Ability Fair Dynamic Sitting Balance Ability Poor Standing Balance and Reactions Static Standing Balance Ability Poor Dynamic Standing Balance Ability Poor M8 OT- IP Objective Assessments Start: 09/18/20 14:19 Freq: Status: Active Protocol: Document 09/18/20 09:58 [facility] (Rec: 09/18/20 17:08 [facility] [id number]) OT Gross Range of Motion Upper Extremity Range of Motion Assessment Bilaterally Impaired M9 OT- IP Assessment and Plan Start: 09/18/20 14:19 Freq: Status: Active Protocol: Document 09/19/20 12:22 [facility] (Rec: 09/19/20 12:33 [facility] [id number]) OT Summary Assessment and Plan Potential Rehabilitation Potential Good Analytic Complexity at Evaluation Low Summary OT Impairments Strength,Balance,Functional Cognition,Functional Mobility, Grooming,Dressing,Toileting, Bathing,Toilet Transfers, Shower Transfers,Activity Tolerance Progress Towards Goals Slow Progress due to Pain,Slow Progress due to Activity Tolerance,Slow Progress due to Cognition Assessment Summary Pt able to tolerate transfer to [facility] and then to recliner. Pt still needing extensive assist x2 for all mobility needs. Pt looking to go to skilled rehab today. Goals Dressing Goal Standby Assistance Toileting Goal Standby Assistance Bathing Goal Standby Assistance Toilet Transfer Goal Standby Assistance Shower Transfer Goal Standby Assistance Days to Meet Goals 20 Frequency of Treatment Frequency Of Treatment Once a Day Treatment Plan OT Treatment Plan ADL Training,Functional Cognition Training,Functional Mobility,Patient/Family Education,Discharge Planning Other Treatment Recommendations and Next Transfer to [facility] with MODA X 2. Treatment Focus Discharge Recommendations OT Discharge Recommendations SNF Rehab Transportation Needs at Discharge Wheelchair/Cabulance
[2020-09-19 12:45] LABS: COVID19 - ADMIT (NP swab/PCR) Negative (Negative)
--- NOTE | 2020-09-19 14:02 | CM.DPNOTE ---
Lilo from [facility] called and said they will cotton picker operator pt. at 1500. I communicated this to Nidhi and Meseret BEDOLLA. Delia Gotti CM Asst.
--- NOTE | 2020-09-19 14:53 | CM.DPNOTE ---
DC Note Spoke w/patient yesterday and today to review DCP; patient remains agreeable to DC to [facility] before return to [facility] Updated Ciara at [facility] [phone] re: above and requested she fax copy of patient's COVID-19 vaccination information Copy received and faxed to [facility] for their records. Today; DC order completed w/help from JESUS ALBERTO Correa and Dr Sorto, completed and signed med list faxed to [facility] w/ [facility]. W/c transport arranged for 1500 p/u. Plan: DC to [facility] via w/c today before return to [facility] J[facility]
== END 2020-09-19 15:00 | DRG 470 ==
LOC: OR 07:50 → AC 14:01
PROVIDERS: Internal Medicine; Admitting Provider Orthopaedic Surgery; Referring Provider Orthopaedic Surgery; Visit Provider Orthopaedic Surgery
PROC: 0SRD0JZ Replacement of Left Knee Joint with Synthetic Substitute, Open Approach (ICD-10-PCS; CPT 27447; principal; 2020-09-16 09:45)
DX: M17.12 Unilateral primary osteoarthritis, left knee (principal); I13.0 Hypertensive heart and chronic kidney disease with heart failure and stage 1 through stage 4 chronic kidney disease, or unspecified chronic kidney disease; N18.4 Chronic kidney disease, stage 4 (severe); I50.32 Chronic diastolic (congestive) heart failure; D47.3 Essential (hemorrhagic) thrombocythemia; Z20.822 Contact with and (suspected) exposure to COVID-19
CPT/HCPCS: 36415; 64450; 73560; 80048; 82962; 85014; 85018; 87635; 97110; 97116; 97162; 97165; 97530; 97535; C1776; C9803; A9270; C9290; J0690; J1100; J1170; J1815; J2250; J2405; J2704; J3010; J3410

== ENCOUNTER → 2020-10-03 15:18 | Outpatient (ROUT) | payer SELFPAY ==
[2020-09-16 16:52] VITALS: BMI 28.3
[2020-10-03 15:21] LABS: RBC Urine None Seen (0-5/HPF)
[2020-10-03 15:24] LABS: Appearance Urine UA SL CLOUDY; Bilirubin Urine UA NEGATIVE (NEGATIVE); Color Urine UA YELLOW; Glucose Urine UA NEGATIVE (Negative); Ketones Urine UA NEGATIVE (NEGATIVE); Leukocyte Esterase Urine UA TRACE (NEGATIVE); Nitrite Urine UA NEGATIVE (Negative); Occult Blood Urine UA NEGATIVE (Negative); Protein Urine UA 2+ (Negative); Urobilinogen Urine UA 0.2 E.U./dL (0.2)
[2020-10-03 15:25] LABS: pH Urine UA 6.5 (4.5-8.0)
[2020-10-03 15:31] LABS: Amorphous Sediment Urine 1+; Bacteria Urine Few (2-10); Culture Indicated Urine Specimen Cultured; WBC Urine 10-30/HPF (0-5/HPF)
== END ==
PROVIDERS: Visit Provider Nurse Practitioner
DX: D72.829 Elevated white blood cell count, unspecified (principal)
CPT/HCPCS: 81001; 87077; 87086; 87186

== ENCOUNTER → 2021-08-13 11:15 | Outpatient (CLI) | payer MEDICARE, OTHER, SELFPAY ==
[2020-09-16 16:52] VITALS: BMI 28.3
[2021-08-13 12:10] LABS: Add Manual Diff / Slide Review NO; Basophils Absolute Auto 0 /uL (0-100); Basophils Percent Auto 0.5 % (0-2); Eosinophils Absolute Auto 100 /uL (0-450); Eosinophils Percent Auto 0.8 % (2-4); Hematocrit 28.6 % (36-46); Hemoglobin 9.7 g/dL (12.0-16.0); Lymphocytes Absolute Auto 1200 /uL (1100-4500); Mean Corpuscular Hemoglobin 32.2 PG (26-34); Mean Corpuscular Volume 94.7 fL (80-100); Monocytes Absolute Auto 300 /uL (0-900); Monocytes Percent Auto 3.6 % (3-14); Neutrophils Absolute Auto 7200 /uL (1500-7000); Neutrophils Percent Auto 81.1 % (50-75); Platelet Count 209 X10^3/uL (150-400); Red Blood Cell Count 3.02 X10^6/uL (4.0-5.2); Red Cell Distribution Width 13.5 % (11.6-14.8); White Blood Cell Count 8.8 X10^3/uL (4.5-11.0)
[2021-08-13 12:27] LABS: BUN Creatinine Ratio 23.6 (6-22); Blood Urea Nitrogen 38 mg/dL (7-17); Calcium 8.8 mg/dL (8.4-10.2); Carbon Dioxide 25 mmol/L (22-32); Chloride 98 mmol/L (98-107); Estimated Glomerular Filt Rate 33 mL/min (>60); Glucose 258 mg/dL (80-110); HEMOLYSIS < 15 (0-50); Potassium 4.8 mmol/L (3.4-5.1); Sodium 133 mmol/L (137-145)
[2021-08-13 12:52] LABS: Hemoglobin A1C% w Est Avg Glu 6.4 % (4.0-6.0)
[2021-08-13 13:40] LABS: Appearance Urine UA CLEAR; Bilirubin Urine UA NEGATIVE (NEGATIVE); Color Urine UA YELLOW; Glucose Urine UA TRACE g/dL (Negative); Ketones Urine UA NEGATIVE (NEGATIVE); Leukocyte Esterase Urine UA NEGATIVE (NEGATIVE); Nitrite Urine UA POSITIVE (Negative); Occult Blood Urine UA NEGATIVE (Negative); Protein Urine UA 3+ (Negative); Specific Gravity Urine UA 1.015 (1.000-1.035); Urobilinogen Urine UA 0.2 E.U./dL (0.2)
[2021-08-13 14:27] LABS: Bacteria Urine Moderate (10-30); Culture Indicated Urine Specimen Cultured; RBC Urine None Seen (0-5/HPF); Squamous Epithelial Cell Urine 0-1 /HPF (0-5/HPF); WBC Urine 5-10/HPF (0-5/HPF)
== END ==
PROVIDERS: PCP Internal Medicine; Referring Provider Orthopaedic Surgery; Visit Provider Orthopaedic Surgery
DX: Z01.818 Encounter for other preprocedural examination (principal); R73.9 Hyperglycemia, unspecified; Z01.812 Encounter for preprocedural laboratory examination; N39.0 Urinary tract infection, site not specified
CPT/HCPCS: 36415; 80048; 81001; 83036; 85025; 87077; 87086; 87186; 93005

== ENCOUNTER → 2021-08-19 11:03 | Outpatient (CLI) | payer MEDICARE, OTHER, SELFPAY ==
[2020-09-16 16:52] VITALS: BMI 28.3
[2021-08-19 14:16] LABS: COVID19 -Nasal RAPID Negative (Negative)
== END ==
PROVIDERS: PCP Internal Medicine; Visit Provider Family Medicine Sleep Medicine
DX: Z20.822 Contact with and (suspected) exposure to COVID-19 (principal)
CPT/HCPCS: 87635; C9803

== ENCOUNTER 2021-08-20 18:46 | Inpatient (IN) | payer MEDICARE, OTHER, SELFPAY ==
[2020-09-16 16:52] VITALS: BMI 28.3
[2021-08-13 13:47] VITALS: BMI 28.3
[2021-08-20] VITALS (16 sets, daily range): BP systolic 154–196; BP diastolic 61–85; PULSE 66–83; RESP 10–19; TEMP 36.4–36.8; O2SAT 95–100; BMI 28.3
--- NOTE | 2021-08-20 06:00 | DI.RAD.S_ITS ---
PROCEDURE: XR KNEE RT 1TO2V INDICATIONS: right TKA TECHNIQUE: Two view(s) of the knee acquired. COMPARISON: [facility], CR, XR KNEE LT 1TO2V, 09/16/2020, 13:23. FINDINGS: Bones: Patient is status post knee joint arthroplasty. Hardware components are in expected positions. Visualized bony structures are intact. Soft tissues: Overlying postoperative changes are noted. IMPRESSION: Expected appearance post right knee arthroplasty. Dictated by: Monique Monge M.D. on 08/20/2021 at 20:46 Approved by: Monique Monge M.D. on 08/20/2021 at 20:47
[2021-08-20] MEDS: LACTATED RINGERS 1,000 ML 42 ML IV ×2 (13:05→15:20)
[2021-08-20] MEDS: VANCOMYCIN 1,000 MG/200 ML PIGGYBACK 200 MG IV (13:37)
[2021-08-20] MEDS: ACETAMINOPHEN 325 MG TABLET 975 MG PO (13:39)
--- NOTE | 2021-08-20 14:12 | PM.PREOP ---
Pre-operative Note COVID-19 COVID-19 status: Negative Interval Note History & Physical reviewed/Exam performed by Physician: Yes Changes to H&P: No H&P completed within 30 days and has changed as indicated here:: some neuropathy, still on Plavix due to h/o multiple strokes, ok for surgery, chronic anemia
--- NOTE | 2021-08-20 14:15 | P.OP_ITS ---
Operative Date/Time/Diagnoses Date of procedure: 08/20/21 Time of procedure: 14:45 Pre-op diagnosis: right knee OA Post-op diagnosis: same Procedure & Clinicians Procedure: Right total knee arthroplasty Same procedure as scheduled: Yes Indications: The patient has had progressively worsening right knee pain with radiographic changes consistent with arthritis. Non-operative management has failed and the patient has requested total knee replacement. The risks, benefits and alternatives to surgery were discussed with the patient prior to proceeding. Risks discussed included, but were not limited to, failure to relieve pain, stiffness, infection, nerve damage, deep venous thrombosis, pulmonary embolism, stroke, coma, heart attack, permanent paralysis and , as well as the potential need for eventual revision of the prosthetic. Surgeon: Mahogany Stout Battery Charger Tester: Radha Levin Anesthesia Type: General Operative Notes Findings: Severe right knee osteoarthritis especially in the lateral compartment, soft tibia Closure Type: primary Specimen(s): none sent Prosthetic devices, grafts, tissues, transplants, or devices: Stout [employer] Nephew Journey BCS 2 size 2 femur, size 2 tibia, 32 x 7.5 mm patella round, +10 poly Applied: drain(s) Estimated Blood Loss (mL): 250 Blood products transfused: none Tourniquet time (min): 75 Procedure in detail: The patient was seen in the pre-operative area, where the patient identified the right knee as the operative site and this was marked with my initials. The patient received pre-operative antibiotics, and was taken to the operating room and placed on the operative table in the supine position. After satisfactory anesthesia, a multimedia coordinator out was performed. The right leg was encircled with a tourniquet about the proximal thigh, and the leg was prepared from the toes to the tourniquet with ChloroPrep in the usual fashion and draped through sterile drapes. The leg was elevated and exsanguinated with Eschmark bandage and the tourniquet inflated to [250] mmHg pressure. The knee was approached through an approximately 18 cm incision centered over the patella and carried into the knee through a medial parapatellar arthrotomy. A portion of the medial and lateral meniscus was resected. Soft tissue was carefully mobilized around the patella the patella was measured with a caliper. Bone was resected from the patella and the patellar height was reconstituted with up an appropriate sized patellar component. A cover was then placed on the patella. A small amount of additional medial and lateral meniscus was resected. Moderate synovitis and capsular thickening, partial synovectomy performed. The distal femur was cut at 5?. A [+2] cut was used. It looked like an appropriate distal femoral cut and the cut was made without difficulty. An extramedullary guide was used for the tibial cut. 10 mm was resected off the least affected side.The tibia was prepared. The rotation was assessed. The patient was placed in extension residual medial and lateral meniscus as well as any residual bone was carefully resected. [No] additional tibia was resected. Hemostasis was achieved especially posteriorly. Additional local was injected into the posterior capsule. The extension gap was assessed and additional releases for gap balancing were performed as necessary. It was checked with the gap museum host/hostess. The femoral component was trial was placed and the notch was finished. The rotation was assessed and the appropriate size femoral guide was placed on the distal femur and finishing cuts were made. There was no evidence of notching. The anterior, posterior and chamfer cuts were then made. The posterior osteophytes and soft tissues were then removed. The posterior capsule was injected with part of a mixture of 60 ml 0.25% Marcaine mixed with 20 ml Exparel for post operative pain control. The remainder of this mixture was injected into the capsule and subcutaneous tissues during cement curing. The tibial and femoral components were then placed and the knee placed through a range of motion. Range of motion was [0-130], with good stability throughout the range. The trials were then removed, and the tibia was finished. The bone was prepared with pulsatile lavage, and dried with a sponge. Cement was applied and the final prosthetics placed. Excess cement was removed during and after cement curing. A brief Betadine soak was performed. After confirming there was no extruded cement posteriorly, the final tibial insert was placed. The knee was copiously irrigated and the tourniquet deflated. Hemostasis was obtained with the [Aquamantys system]. A drain was placed and brought out superolaterally. The capsule was closed with interrupted nonabsorbable suture. The subcutaneous layer was closed with barbed sutures, and the skin with a running 3-0 V-Lock suture and Surgical glue. An Aquacel Ag dressing was applied and the patient was taken to recovery having tolerated the procedure well. Complications: none Post-operative Condition: stable Disposition: Acute Care (Patient needs inpatient admission. She has multiple medical problems including diabetes, history of multiple CVAs, chronic renal of renal failure, who has chronic substantial anemia) Plan for aftercare: The patient will be maintained on a standard total knee replacement protocol with weight bearing as tolerated. The patient will receive baby aspirin and Plavix and sequential compression devices for DVT prophylaxis. The patient will be discharged home when safe for the home environment.
--- NOTE | 2021-08-20 15:18 | SUR.PREOP ---
Block start time [1455] . Monitoring initiated and maintained throughout procedure. Oxygen @ 2l/nc and medication versed given by anesthesiologist. Patient remained stable throughout procedure, no adverse reactions noted. Block end time [1508]. Pt rhythm SR with occasional PAC's 1455 HR 67 B/P 194/80 R 18 O2 SAT 99 1500 HR 66 B/P 192/82 R 16 O2 sat 99% 1505 HR 62 B/P 194/76 R 15 O2 sat 99 . Pt hand off to HR SHARED SERVICES CONSULTANT to go to surgery.
[2021-08-20] MEDS: TRANEXAMIC ACID 1,000 MG VIAL 2000 MG INJ ×2 (15:25→16:49)
[2021-08-20] MEDS: CEFAZOLIN 2 GM/20 ML SYRINGE IV (15:28)
--- NOTE | 2021-08-20 16:12 | SUR.OPER ---
Supine on padded OR bed. Pillow under head, arms secured on padded armboards <90 degree abduction. Safety belt across torso. Non-operative leg secured with tape over blanket over lower leg. Operative leg secured in DeMayo positioner. Foam padded brace at thigh of operative leg.
[2021-08-20] MEDS: SODIUM CHLORIDE IRRIG SOLUTION 250 ML, POVIDONE-IODINE SPONGE STICKS 1 APPLIC IRR (16:47)
[2021-08-20] MEDS: BUPIVACAINE LIPOSOME 266 MG/20 ML VIAL INJ (16:48)
[2021-08-20] MEDS: BUPIVACAINE 0.5% (PF) VIAL 30 ML INJ (17:06)
[2021-08-20] MEDS: EPINEPHrine 1 MG/ML 0.15 MG INJ (17:17)
--- NOTE | 2021-08-20 17:18 | SUR.OPER ---
patient incontinent of urine at times, brief changed after patient moved from stretcher to OR bed and again after the procedure prior to moving to bed.
[2021-08-20] MEDS: fentaNYL 100 MCG/2 ML INJ IV (17:48)
[2021-08-20] MEDS: hydrOXYzine 50 MG/ML INJ IM (17:58)
[2021-08-20] MEDS: LACTATED RINGERS 1,000 ML 100 ML IV (19:02)
[2021-08-20] MEDS: LOSARTAN 50 MG TABLET PO (19:27)
[2021-08-20] MEDS: HYDRALAZINE 10 MG TABLET PO (19:28)
[2021-08-20] MEDS: NIFEdipine 30 MG TAB ER 60 MG PO (21:22)
[2021-08-20] MEDS: ATORVASTATIN 20 MG TABLET 10 MG PO (21:22)
[2021-08-20] MEDS: FUROSEMIDE 20 MG TABLET PO (21:22)
[2021-08-20] MEDS: DOCUSATE 100 MG CAPSULE PO (21:22)
[2021-08-20] MEDS: IBUPROFEN 400 MG TABLET PO (21:22)
[2021-08-20] MEDS: ASPIRIN EC 81 MG TABLET PO (21:22)
[2021-08-20] MEDS: OXYCODONE IR 5 MG TABLET PO (21:22)
[2021-08-20] MEDS: carvediloL 12.5 MG TABLET 25 MG PO (21:23)
[2021-08-20] MEDS: ACETAMINOPHEN 325 MG TABLET 650 MG PO (21:24)
[2021-08-20] MEDS: BUSPIRONE 5 MG TABLET PO (21:33)
[2021-08-20] MEDS: INSULIN LISPRO 100 UNIT/ML 3ML VIAL 6 UNIT SUBCUT (21:35)
[2021-08-21] VITALS (8 sets, daily range): BP systolic 139–187; BP diastolic 43–71; PULSE 57–77; RESP 14–18; TEMP 36.6–37.4; O2SAT 97–99
[2021-08-21] MEDS: IBUPROFEN 400 MG TABLET PO ×3 (01:00→09:01)
[2021-08-21] MEDS: CEFAZOLIN 2 GM/20 ML SYRINGE IV ×2 (01:56→08:49)
[2021-08-21] MEDS: OXYCODONE IR 5 MG TABLET PO ×4 (03:43→23:00)
[2021-08-21 04:43] LABS: Add Manual Diff / Slide Review NO; Basophils Absolute Auto 0 /uL (0-100); Basophils Percent Auto 0.1 % (0-2); Eosinophils Absolute Auto 0 /uL (0-450); Hematocrit 25.2 % (36-46); Hemoglobin 8.2 g/dL (12.0-16.0); Lymphocytes Absolute Auto 1100 /uL (1100-4500); Lymphocytes Percent Auto 6.4 % (25-40); Mean Corpuscular HGB Conc 32.6 % (30-36); Mean Corpuscular Hemoglobin 31.2 PG (26-34); Mean Corpuscular Volume 95.8 fL (80-100); Monocytes Absolute Auto 700 /uL (0-900); Monocytes Percent Auto 3.9 % (3-14); Neutrophils Absolute Auto 16000 /uL (1500-7000); Neutrophils Percent Auto 89.6 % (50-75); Platelet Count 187 X10^3/uL (150-400); Red Blood Cell Count 2.63 X10^6/uL (4.0-5.2); Red Cell Distribution Width 13.9 % (11.6-14.8); White Blood Cell Count 17.8 X10^3/uL (4.5-11.0)
[2021-08-21] MEDS: ALPRAZolam 0.25 MG TABLET PO (05:51)
[2021-08-21] MEDS: ACETAMINOPHEN 325 MG TABLET 650 MG PO ×3 (08:57→20:29)
[2021-08-21] MEDS: BUSPIRONE 5 MG TABLET PO ×3 (08:59→20:30)
[2021-08-21] MEDS: FUROSEMIDE 20 MG TABLET PO ×2 (09:00→20:29)
[2021-08-21] MEDS: DOCUSATE 100 MG CAPSULE PO ×2 (09:00→20:29)
[2021-08-21] MEDS: CLOPIDOGREL 75 MG TABLET PO (09:00)
[2021-08-21] MEDS: ISOSORBIDE MONONITRATE ER 30 MG TABLET PO (09:01)
[2021-08-21] MEDS: LOSARTAN 50 MG TABLET PO ×2 (09:01→20:29)
[2021-08-21] MEDS: MAGNESIUM OXIDE 400 MG TABLET 800 MG PO (09:01)
[2021-08-21] MEDS: HYDRALAZINE 10 MG TABLET PO ×3 (09:01→20:29)
[2021-08-21] MEDS: predniSONE 5 MG TABLET PO (09:02)
[2021-08-21] MEDS: MULTIVITAMIN 1 TABLET 1 TAB PO (09:02)
[2021-08-21] MEDS: SERTRALINE 50 MG TABLET PO (09:02)
[2021-08-21] MEDS: carvediloL 12.5 MG TABLET 25 MG PO ×2 (09:13→20:30)
--- NOTE | 2021-08-21 09:15 | PT.IIE ---
Current Diagnoses Anemia, unspecified (08/20/21) Type 2 diabetes mellitus without complications (08/20/21) Essential (primary) hypertension (08/20/21) Heart failure, unspecified (08/20/21) Unilateral primary osteoarthritis, right knee (08/20/21) Chronic kidney disease, stage 4 (severe) (08/20/21) Urinary tract infection, site not specified (08/20/21) Presence of right artificial knee joint (08/20/21) Surgery Performed Operation Date: 08/20/21 14:15 Actual Procedures p Total Knee Arthroplasty(Right) - Mahogany Stout MD Medical History (Last Updated 08/21/21 @ 09:49 by Radha Levin PA-C) Anemia Anxiety Atypical chest pain Cataracts, bilateral CKD (chronic kidney disease), stage IV Congestive heart failure CVA (cerebral vascular accident) Diabetes Diabetic macular edema Diabetic neuropathy Diabetic retinopathy Diastolic dysfunction Edema Essential thrombocythemia Essential thrombocytosis Gait disorder GERD (gastroesophageal reflux disease) Glaucoma HTN (hypertension) Hypercholesterolemia Hyponatremia Insomnia Left ventricular hypertrophy Major depressive disorder Osteoarthritis Pain Pseudophakia of left eye Vitreous hemorrhage of right eye Physical Therapy Inpatient Evaluation/Re-Eval M1 PT/OT-IP Prior Functional Status Start: 08/21/21 12:28 Freq: NEEDED Status: Active Protocol: Document 08/21/21 09:15 AB (Rec: 08/21/21 12:43 AB [id number]) Medical Review Prior Functional Status Medical History Reviewed Yes Communication able to make needs known Mobility and Gait pt stated that she is modified independent with all mobilities and ambulation using 4WW Prior Functional Level (Other details) pt had h/o L TKA last year and went to SNF afterwards. pt stated that she was at SNF for ~ 2-3 months Social History Household Members none Living Arrangements Fpc Facility Number of Stairs To Enter/Railing? pt lives at [facility] : 2nd floor with elevator to get to her floor Home Environment Standard Height Toilet,Walk in Shower,Elevator Home Equipment Front Wheel Walker,Four Wheel Walker,Shower Seat with Backrest,Hand Held Shower,Grab Bars Near Toilet,Grab Bars In Shower Additional Social History Comment pt has R side transfer pole to assist her with bed mobility M2 PT-IP Current Condition Start: 08/21/21 12:28 Freq: NEEDED Status: Active Protocol: Document 08/21/21 09:15 AB (Rec: 08/21/21 12:43 AB [id number]) Physical Therapy Current Condition Current Condition Evaluation Date 08/21/21 Treatment Diagnosis s/p R TKA; difficulty in walking Onset Date 08/20/21 M3 PT-IP Subjective Start: 08/21/21 12:28 Freq: NEEDED Status: Active Protocol: Document 08/21/21 09:15 AB (Rec: 08/21/21 12:43 AB [id number]) Subjective Physical Therapy Visit Type Type Initial Evaluation Visit Start Time 09:15 Visit Stop Time 09:55 Total Visit Minutes 40 Number of HIGH SCHO[employer]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 0 Physical Therapy Visit Comments Patient Comments agreeable to do PT Therapy Pain Assessment Pain When Pain Assessed At Rest Pain Present Pain Present Pain Reported Location Bilateral Leg Intensity 11 Scale Used chronic burning pain BLE Description Burning,Chronic Pain Management Techniques Distraction,Modification of Treatment,Re-positioning, Timing of Activity with Medications M4 PT-IP Mobility and Gait Start: 08/21/21 12:28 Freq: NEEDED Status: Active Protocol: Document 08/21/21 09:15 AB (Rec: 08/21/21 12:43 AB [id number]) PT-Bed Mobility Assessment Supine to Sit Supine to Sit Maximum Assistance PT-Transfer Assessment Sit to and From Stand Sit to and from Stand Maximum Assistance,Total Assistance,2 Person Assistance ,Use of Upper Extremities Equipment Transfer Assistive Device Gait Belt,Front Wheeled Walker Orthotic/Prosthetic Devices or Brace: No Transfers Transfer Destination Chair Transfer Technique Stand Step Pivot Transfer Ability Level of Assist Maximum Assistance,2 Person Assistance,Use of Upper Extremities Comments Mobility Comments completed supine to sit max Aand max cues. mod to max A for sitting balance on EOB with increase posterior trunk lean and cued for positioning. completed sit to stand max A x 2 and max cues and continues to have increase posterior trunk lean and cued for safety. completed step transfer to chair using FWW max A x 2 and max cues. unsteady steps and pt midway through transfer stated that she cannot do any more and requiring total A x 2 towards end of transfer to pivot and sit on the chair. positioned pt on the chair. call light and table placed within reach. Gait Assessment Comments Gait Comments unable at this time PT-Balance Assessment Sitting Balance and Reactions Static Sitting Balance Ability Poor Dynamic Sitting Balance Ability Poor Standing Balance and Reactions Static Standing Balance Ability Poor Dynamic Standing Balance Ability Poor Device Used FWW M5 PT-IP Objective Assessments Start: 08/21/21 12:28 Freq: NEEDED Status: Active Protocol: Document 08/21/21 09:15 AB (Rec: 08/21/21 12:43 AB [id number]) Orientation Orientation/Cognition Level of Alertness Alert Orientation Name Language Function Ability Kyrgyz as Second Language Safety Awareness Decreased Safety Awareness Memory Description Short Term Impaired Gross Range of Motion Lower Extremity ROM Assessment Right Impaired Impairments R knee flexion: ~ 40 deg R knee extension: ~ 20 deg less to 0 Strength Comments Strength Comments RLE: 3-/5 LLE: 4-/5 Coordination Assessment Gross Coordination Gross Coordination WNL Muscle Tone Muscle Tone WNL Yes M6 PT-IP Treatment Start: 08/21/21 12:28 Freq: NEEDED Status: Active Protocol: Document 08/21/21 09:15 AB (Rec: 08/21/21 12:43 AB [id number]) Physical Therapy Treatment Exercises Exercises Heel Slides Education Education Provided Precautions,Weight Bearing Status,Post-Op Packet,Safety M7 PT-IP Assessment and Plan Start: 08/21/21 12:28 Freq: NEEDED Status: Active Protocol: Document 08/21/21 09:15 AB (Rec: 08/21/21 12:43 AB [id number]) PT Summary Assessment and Plan Potential Rehabilitation Potential Fair Status of Condition at Evaluation Evolving Summary Impairments Pain,ROM,Strength,Balance, Coordination,Sensation,Tone, Cognition,Bed Mobility, Transfers,Gait,Activity Tolerance Assessment Summary pt requiring max A x 2 to total A x 2 with mobility and unable to ambulate at this time. pt will require SNF rehab at this time to improve strength and function. will continue to assess progress. Goals Bed Mobility Goal Standby Assistance Transfer Goal Standby Assistance,Front Wheeled Walker Gait Goal Standby Assistance,Front Wheel Walker Gait Distance 100 Other Goals improve ambulation using FWW/ 4 WW 150 ft SBA Days to Meet Goals 10 Frequency of Treatment Frequency Of Treatment Twice a Day Treatment Plan Physical Therapy Treatment Plan Bed Mobility Training,Transfer Training,Gait Training, Therapeutic Exercise,Balance Retraining,Post Op Education, Discharge Planning,Hot or Cold Pack,Neuromuscular Re-ed, Coordination Retraining,Manual Therapy Weight Bearing Status Weight Bearing Status Weight Bear as Tolerated Allowed Weight Bearing Amount (enter % RLE WBAT or #) (%) Recommendations To Nursing Amount of Assist Needed 2 Person Assist Discharge Recommendations PT Discharge Recommendations SNF Rehab Transportation Needs at Discharge Wheelchair/Cabulance
--- NOTE | 2021-08-21 09:36 | P.PN_ITS ---
Subjective Subjective Date Patient Seen: 08/21/21 Time Patient Seen: 08:00 Interval history: Pt sitting up in bed, comfortable, very pleasant. Has not been OOB yet. She resides at an assisted living facility. After her last total knee replacement, she was discharged to a SNF for 3 months and did very well there. She would like to go to a SNF again, which is reasonable given her multiple medical issues. Exam Vital Signs (past 8 hours): - 08/21/21 01:54 08/21/21 03:00 08/21/21 09:00 Temperature 97.9 F 98.2 F Pulse Rate 77 57 L 64 Respiratory Rate 14 18 Blood Pressure 172/71 H 187/62 H 108/55 L Pulse Oximetry 99 97 08/21/21 09:01 Temperature Pulse Rate Respiratory Rate Blood Pressure 180/55 H Pulse Oximetry Oxygen Delivery Method Room Air Oxygen Flow Rate 0 Narrative Exam Narrative: 4/5 hip flexors, quadriceps, hamstrings on right; 5/5 DF, PF, EHL. Sensation to light touch intact throughout BLE. Calves soft, compressible, nontender and without palpable cords or masses. Small area of bloodly drainage on ROSEANN wrap where Aquacel dressing had not fully sealed to skin; Aquacel intact now. Const General: cooperative, healthy appearing and comfortable Orientation: alert, awake and oriented x3 Objective Labs Result Diagrams: 08/21/21 04:20 Labs: Laboratory Results - last 24 hr 08/21/21 04:20 WBC 17.8 H RBC 2.63 L Hgb 8.2 L Hct 25.2 L MCV 95.8 MCH 31.2 MCHC 32.6 RDW 13.9 Plt Count 187 Neut % (Auto) 89.6 H Lymph % (Auto) 6.4 L Vernon % (Auto) 3.9 Eos % (Auto) 0.0 L Baso % (Auto) 0.1 Neut # (Auto) 06748 H Lymph # (Auto) 1100 Vernon # (Auto) 700 Eos # (Auto) 0 Baso # (Auto) 0 PFSH Medical History (Updated 08/21/21 @ 09:49 by Radha Levin PA-C) Anemia Anxiety Atypical chest pain Cataracts, bilateral CKD (chronic kidney disease), stage IV Congestive heart failure CVA (cerebral vascular accident) Diabetes Diabetic macular edema Diabetic neuropathy Diabetic retinopathy Diastolic dysfunction Edema Essential thrombocythemia Essential thrombocytosis Gait disorder GERD (gastroesophageal reflux disease) Glaucoma HTN (hypertension) Hypercholesterolemia Hyponatremia Insomnia Left ventricular hypertrophy Major depressive disorder Osteoarthritis Pain Pseudophakia of left eye Vitreous hemorrhage of right eye Surgical History (Updated 08/21/21 @ 09:43 by Radha Levin PA-C) History of arthroplasty of left knee (04/01/20) Social History household members: other Smoking Status: Former smoker alcohol intake: never Assessment & Plan Post-op Assessment and plan (1) Status post total knee replacement, right: Assessment and Plan narrative: Multimodal pain control; no NSAIDs d/t renal failure. PT. Plan for d/c to SNF, spoke to CM today. Continue Plavix d/t h/o thromboembolic CVA. Pt has reported h/o ASA allergy, but unsure what reaction is. Dr Stout would also like to continue ASA 81 mg daily for additional VTE prophylaxis. SCDs for VTE prophylaxis. (2) Acute on chronic anemia: Assessment and Plan narrative: Acute anemia d/t expected surgical blood loss. Will monitor H/H, transfuse as needed. (3) UTI (urinary tract infection): Assessment and Plan narrative: E Coli, present on admission. Giving once dose of IV ceftriaxone now per hospitalist recommendation. (4) CKD (chronic kidney disease), stage IV: (5) HTN (hypertension): (6) Diabetes: (7) Congestive heart failure: (8) Anemia: Assessment and Plan narrative: Chronic, cause unspecified. Postoperative Procedures: Procedures Operation Date: 08/20/21 14:15 Actual Procedure Side Surgeon p Total Knee Arthroplasty Right Mahogany Stout MD Postoperative day: 1 Postoperative plan narrative: Hospitalist service consulted to help with this patient; appreciate their co-management.
[2021-08-21] MEDS: cefTRIAXone 1,000 MG in SODIUM CHLORIDE 0.9% 100 ML 200 ML IV (10:27)
[2021-08-21] MEDS: ASPIRIN EC 81 MG TABLET PO (10:46)
--- NOTE | 2021-08-21 13:30 | PT.IPTN ---
Current Diagnoses Anemia, unspecified (08/20/21) Type 2 diabetes mellitus without complications (08/20/21) Essential (primary) hypertension (08/20/21) Heart failure, unspecified (08/20/21) Unilateral primary osteoarthritis, right knee (08/20/21) Chronic kidney disease, stage 4 (severe) (08/20/21) Urinary tract infection, site not specified (08/20/21) Presence of right artificial knee joint (08/20/21) Surgery Performed Operation Date: 08/20/21 14:15 Actual Procedures p Total Knee Arthroplasty(Right) - Mahogany Stout MD Physical Therapy Treatment Note M2 PT-IP Current Condition Start: 08/21/21 12:28 Freq: NEEDED Status: Active Protocol: Document 08/21/21 09:15 AB (Rec: 08/21/21 12:43 AB [id number]) Physical Therapy Current Condition Current Condition Evaluation Date 08/21/21 Treatment Diagnosis s/p R TKA; difficulty in walking Onset Date 08/20/21 M3 PT-IP Subjective Start: 08/21/21 12:28 Freq: NEEDED Status: Active Protocol: Document 08/21/21 13:30 AB (Rec: 08/21/21 14:31 AB [id number]) Subjective Physical Therapy Visit Type Type Treatment Note Visit Start Time 13:30 Visit Stop Time 13:55 Total Visit Minutes 25 Number of ANCILLARY SERVICES MANAGER THERAPY Visits 0 Physical Therapy Visit Comments Patient Comments agreeable to do PT M4 PT-IP Mobility and Gait Start: 08/21/21 12:28 Freq: NEEDED Status: Active Protocol: Document 08/21/21 13:30 AB (Rec: 08/21/21 14:31 AB [id number]) PT-Bed Mobility Assessment Sit to Supine Sit to Supine Maximum Assistance,2 Person Assistance,Bedrails Scooting Scooting Up and Down in Bed Maximum Assistance PT-Transfer Assessment Sit to and From Stand Sit to and from Stand Maximum Assistance,1 Person Assistance,2 Person Assistance ,Use of Upper Extremities Equipment Transfer Assistive Device Gait Belt,Front Wheeled Walker Orthotic/Prosthetic Devices or Brace: No Transfers Transfer Destination Bed Transfer Technique Stand Step Pivot Transfer Ability Level of Assist Maximum Assistance,1 Person Assistance,2 Person Assistance ,Use of Upper Extremities Comments Mobility Comments completed sit to stand from the chair max A x 1-2. max A for standing balance using FWW for support with max cues to push on FWW for support due to pt leaning backwards and not using FWW. nurse in room and assisted pt with brief managment. pt then ambulated using FWW max A x 1-2 and max cues with chair follow ~ 7 ft. presents with unsteady antalgic gait with increase posterior lean and narrow TANIA. pt sat back on chair. pt requested to go back to bed . completed sit to stand max A x 1-2 and cues and step transfer using FWW max A x 1-2 and max cues. required max A x 2 for sit to supine. max A x 2 for positioning in bed. call light and table placed within reach. Gait Assessment Gait Gait Assistance Required: Maximum Assistance,1 Person Assist,2 Person Assist Distance (Feet) 7 Able to Maintain Weight Bearing Status Yes During Gait Assistive Devices Assistive Device Gait Belt,Front Wheeled Walker Orthotic/Prosthetic Devices or Brace: No Gait Deviations General Gait Pattern Antalgic,Decreased Stride Length,Decreased Feet Clearance,Step-to Gait Factors Limiting Gait Function Factors Limiting Gait Function Decreased Activity Tolerance, Decreased Strength,Difficulty Following Directions,Limited Range of Motion,Pain,Poor Balance,Poor Safety Awareness M5 PT-IP Objective Assessments Start: 08/21/21 12:28 Freq: NEEDED Status: Active Protocol: Document 08/21/21 09:15 AB (Rec: 08/21/21 12:43 AB [id number]) Orientation Orientation/Cognition Level of Alertness Alert Orientation Name Language Function Ability Indonesian as Second Language Safety Awareness Decreased Safety Awareness Memory Description Short Term Impaired Gross Range of Motion Lower Extremity ROM Assessment Right Impaired Impairments R knee flexion: ~ 40 deg R knee extension: ~ 20 deg less to 0 Strength Comments Strength Comments RLE: 3-/5 LLE: 4-/5 Coordination Assessment Gross Coordination Gross Coordination WNL Muscle Tone Muscle Tone WNL Yes M6 PT-IP Treatment Start: 08/21/21 12:28 Freq: NEEDED Status: Active Protocol: Document 08/21/21 13:30 AB (Rec: 08/21/21 14:31 AB [email or web address]) Physical Therapy Treatment Education Education Provided Safety M7 PT-IP Assessment and Plan Start: 08/21/21 12:28 Freq: NEEDED Status: Active Protocol: Document 08/21/21 13:30 AB (Rec: 08/21/21 14:31 AB [id number]) PT Summary Assessment and Plan Potential Rehabilitation Potential Fair Summary Impairments Pain,ROM,Strength,Balance, Coordination,Sensation,Tone, Cognition,Bed Mobility, Transfers,Gait,Activity Tolerance Progress Towards Goals Slow Progress due to Activity Tolerance,Slow Progress - Other Assessment Summary pt progressing slowly and able to ambulate a few feet this afternoon but continues to require max A x 1-2 and max cues. pt will require SNF rehab to improve mobility independence. Goals Bed Mobility Goal Standby Assistance Transfer Goal Standby Assistance,Front Wheeled Walker Gait Goal Standby Assistance,Front Wheel Walker Gait Distance 100 Other Goals improve ambulation using FWW/ 4 WW 150 ft SBA Days to Meet Goals 10 Frequency of Treatment Frequency Of Treatment Twice a Day Treatment Plan Physical Therapy Treatment Plan Bed Mobility Training,Transfer Training,Gait Training, Therapeutic Exercise,Balance Retraining,Post Op Education, Discharge Planning,Hot or Cold Pack,Neuromuscular Re-ed, Coordination Retraining,Manual Therapy Weight Bearing Status Weight Bearing Status Weight Bear as Tolerated Allowed Weight Bearing Amount (enter % RLE WBAT or #) (%) Recommendations To Nursing Amount of Assist Needed 2 Person Assist Discharge Recommendations PT Discharge Recommendations SNF Rehab Transportation Needs at Discharge Wheelchair/Cabulance
--- NOTE | 2021-08-21 13:46 | CM.DPNOTE ---
Emailed referral packet to Lucia at [facility] jacinto Terrell. Delia Gotti CM Assist.
--- NOTE | 2021-08-21 13:56 | DIET.CONS ---
Addendum entered by Sybil Lockhart 08/21/21 14:37: Correction: BG of 140-180 mg/dl rec while admitted is optimal Original Note: Dietary Consultation Note Admission Date: 08/20/2021 18:46 Assessment: 76 y/o F s/p right total knee replacement. RD consulted for chandra Gunter. No PO changes documented per Jani. PO 75% today. No weight loss documented. PMH T2DM. Some elevated BG today of 249 mgdL. HgA1c 6.4% indicating well managed DM Home regimen for DM meds: glargine 14u HS and aspart 6u BID Current regimen in JUN: same Ht: 149.86 cm Wt: 63.503 kg BMI: 28.3 Last BM: () MNA: 14 Jani Score: 15 Diet: 08/20/21 Dinner Carbohydrate Consistent Diet Diet Modifications: Carbohydrate level: Medium (3 CHO) Nutrition Percent Meal Consumed 75% 08/21/21 10:03 Labs: RBC 2.63 X10^6/uL (4.0-5.2) L 08/21/21 04:20 Hgb 8.2 g/dL (12.0-16.0) L 08/21/21 04:20 Hct 25.2 % (36-46) L 08/21/21 04:20 Interventions: Rec adjusting insulin prn to keep BG 80-180mg/dL while admitted for optimal healing. Monitoring/Evaluations: consult prn Electronically Signed by: Sybil Lockhart 08/21/21 13:56 Clinical Dietitian, [address] [address]
--- NOTE | 2021-08-21 16:12 | CM.IDA ---
Initial DCP Assessment Note Pt is a 76 yo female, resident at [facility] in [place], now POD#1 from Rt knee surgery by Dr Stout PCP: Migel Ambrose Payer: [employer]/[facility] Reviewed chart, pt discussed in multidisciplinary rounds this morning. Patient resides at [facility] and requesting to discharge to [facility]; states she stayed at [facility] after her last knee surgery. Met w/patient this afternoon to introduce role and review DCP options; patient confirms above, states she is in pain. RN Louie present Patient initially SDC and changed to inpatient per CHUCK Lee RN Back up SNF option is [facility]. Contacted [facility], reviewed referral. [facility] has accepted for admission Tuesday- no beds until that date. Discussed referral with Lucia at [facility], she also would have a bed Tuesday if needed Plan: Expect DC to [facility] Tuesday via w/c. PASRR completed in anticipation of SNF upon DC ELIZABET Cortez Discharge Planning/Care Management CM Discharge Assessment Start: 08/21/21 15:50 Freq: Status: Active Protocol: Document 08/21/21 15:50 JOSE ALBERTO (Rec: 08/21/21 16:11 JOSE ALBERTO [id number]) Discharge Planning Assessment Assigned Jack Frame Tender ELIZABET Haley DPOA/Assigned Designee Name Al Marley, son Carlota Montoya dtr Contact Information Al:[phone] Carlota: [phone] Advance Directives? Yes Advance Directives on File No History Provided By Patient,Medical Record Prior Living Arrangements Intermediate Facility Comment [facility] Household Members none Type of transporation used prior to Relies on Others admit Willing to Return to Facility? No: Patient hopeful to DC to [facility] Independent with ADL's Yes: Mod Indp, 4WW Is patient alert and oriented? Yes Needs Assistance With Meal Prep,Home Chores / Shopping Patient/Family Preference Alf Facility Barriers to Discharge Yes Comment Lives at [facility], requires SNF before discharge back to [facility] Discharge Plan Alf Facility Transportation Arrangement Facility van Referrals Initiated Alf Medicare Choice List Provided Yes SNF/HH Preference 1. [facility] 2. [facility] Has Agency SNF been contacted Yes Comment [facility] accepts for Tuesday; no beds until then.
--- NOTE | 2021-08-21 16:15 | P.HP_ITS ---
History of Present Illness History of Present Illness Chief complaint: OPB Narrative: 76yo female with a hx of insulin-dependent DM II (well-controlled, with A1c 6.4%), hypertension, and possible CKD stage III that underwent a right knee arthroplasty on August 20, 2021. Medicine is consulted for possible UTI. The patient does endorse dysuria, frequency, and urinary incontinence. She denies having a recent UTI, and cannot recall when her last UTI was. There are urine cultures in our system that grew E. coli in the past. She believes taking Azo outpatient has helped with her urinary pain, but she's run out of said med over the last 2-3 days. The patient denies n/v/d, flank pain, suprapubic abd pain, or abd pain in general. She denies any issues with PO intake. She denies any recent urological instrumentation. The patient does not recall the name of her medications on med reconciliation, stating that [facility], the facility where she lives, takes care of her meds. She endorses a rash allergic reaction to several medications, that are already listed in the chart. PSH is remarkable for left knee arthroplasty, approximately 1 year ago. The patient has 2 children, one living in [place] and the other in [place]. She is . 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 Patient History Medical History (Updated 08/21/21 @ 09:49 by Radha Levin PA-C) Anemia Anxiety Atypical chest pain Cataracts, bilateral CKD (chronic kidney disease), stage IV Congestive heart failure CVA (cerebral vascular accident) Diabetes Diabetic macular edema Diabetic neuropathy Diabetic retinopathy Diastolic dysfunction Edema Essential thrombocythemia Essential thrombocytosis Gait disorder GERD (gastroesophageal reflux disease) Glaucoma HTN (hypertension) Hypercholesterolemia Hyponatremia Insomnia Left ventricular hypertrophy Major depressive disorder Osteoarthritis Pain Pseudophakia of left eye Vitreous hemorrhage of right eye Surgical History (Updated 08/21/21 @ 09:43 by Radha Levin PA-C) History of arthroplasty of left knee (04/01/20) Family & Social History Social History: household members none Prior Living Arrangements Half-Way Facility Safety & Behavioral: Feels Safe in Current Yes Environment Been Physically Hurt or No Threatened By a Person Tobacco & Substance use: Smoking Status Former smoker alcohol intake never Substance Use Type does not use Meds Home Medications and Allergies Home Medications Medication Instructions Recorded Confirmed Type albuterol sulfate 90 mcg/actuation 1 inh INHALATION QID PRN 03/28/20 08/13/21 History aerosol inhaler docusate sodium 100 mg tablet 100 mg PO DAILY PRN 03/28/20 08/13/21 History doxazosin 4 mg tablet 8 mg PO DAILY 03/28/20 08/20/21 History furosemide 20 mg tablet 20 mg PO BID 03/28/20 08/20/21 History insulin aspart U-100 100 unit/mL 6 unit SUBCUT BID 03/28/20 08/13/21 History (3 mL) subcutaneous pen (Novolog Flexpen U-100 Insulin aspart) insulin glargine 100 unit/mL (3 14 unit SUBCUT DAILY 03/28/20 08/20/21 History mL) subcutaneous pen (Lantus Solostar U-100 Insulin) isosorbide mononitrate 30 mg 30 mg PO DAILY 03/28/20 08/20/21 History tablet,extended release 24 hr lidocaine 4 % topical cream 1 applic TOPICAL QID 03/28/20 08/13/21 History magnesium oxide 800 mg PO DAILY 03/28/20 08/13/21 History multivitamin 1 cap PO DAILY 03/28/20 08/13/21 History prednisone 5 mg tablet 5 mg PO DAILY 03/28/20 08/20/21 History sertraline 100 mg tablet 50 mg PO DAILY 03/28/20 08/20/21 History simvastatin 20 mg tablet 20 mg PO BEDTIME 03/28/20 08/20/21 History clopidogrel 75 mg tablet 75 mg PO DAILY 09/09/20 08/20/21 History acetaminophen 325 mg tablet 650 mg PO TID #40 tab 09/19/20 08/20/21 Rx alprazolam 0.25 mg tablet 0.25 mg PO BID PRN #40 tab 09/19/20 08/13/21 Rx docusate sodium 100 mg capsule 100 mg PO BID #60 cap 09/19/20 08/13/21 Rx (DOK) anagrelide 0.5 mg capsule 0.5 mg PO BID 08/20/21 08/20/21 History buspirone 5 mg tablet 5 mg PO TID 08/20/21 08/20/21 History carvedilol 25 mg tablet 25 mg PO BID 08/20/21 08/20/21 History hydralazine 10 mg tablet 10 mg PO TID 08/20/21 08/20/21 History losartan 50 mg tablet 50 mg PO BID 08/20/21 08/20/21 History nifedipine 60 mg PO BEDTIME 08/20/21 08/20/21 History Allergies Allergy/AdvReac Type Severity Reaction Status Date / Time caffeine Allergy Mild Rash Verified 08/20/21 12:41 clonidine Allergy Mild Rash Verified 08/20/21 12:41 lansoprazole [From Prevacid] Allergy Mild Rash Verified 08/20/21 12:41 Penicillins Allergy Mild Rash Verified 08/20/21 12:41 spironolactone Allergy Mild Rash Verified 08/20/21 12:41 aspirin Allergy Reaction Verified 08/20/21 12:41 not listed egg AdvReac Nausea Verified 08/20/21 12:41 milk AdvReac Cramp Verified 08/20/21 12:41 Review of Systems Constitutional Comments: Denies fever/chills, night sweats, unintentional weight loss Eyes Comments: Endorses decreased vision, and cites need for new eyeglasses Cardiovascular Comments: Denies CP, SOB, peripheral edema Respiratory Comments: Denies cough, URI sxs Gastrointestinal Comments: Denies abd pain, n/v/d Genitourinary Comments: Endorses dysuria, frequency, urinary incontinence. Denies flank pain Integumentary/Breasts Comments: Denies new skin lesions Exam Vital Signs (past 8 hours): - 08/21/21 09:00 08/21/21 09:01 08/21/21 12:00 Temperature 98.2 F 98.4 F Pulse Rate 64 64 Respiratory Rate 18 17 Blood Pressure 180/55 H 180/55 H 139/43 L Pulse Oximetry 97 97 08/21/21 15:52 Temperature Pulse Rate 64 Respiratory Rate Blood Pressure 170/45 H Pulse Oximetry Oxygen Delivery Method Room Air Oxygen Flow Rate 0 Const Other: Patient laying in bed comfortably upon my entering the room, watching TV, and in no apparent acute distress Eyes Other: No scleral icterus appreciated Resp Other: Lungs clear to auscultation bilaterally Cardio Other: RRR, S1 and S2 heart sounds normal, no extra heart sounds or murmurs appreciated GI Other: Soft, non-distended, non-tender, bowel sounds present, no CVA tenderness elicited with percussion Skin Other: No grossly abnormal skin lesions noted Extrem Other: Old, well-healed vertical scar appreciated over left knee, with dressing and ice pack over right knee, and palpable, equal, steady dorsalis pedis pulses bilaterally Objective Labs Result Diagrams: 08/21/21 04:20 Labs: Laboratory Results - last 24 hr 08/21/21 04:20 WBC 17.8 H RBC 2.63 L Hgb 8.2 L Hct 25.2 L MCV 95.8 MCH 31.2 MCHC 32.6 RDW 13.9 Plt Count 187 Neut % (Auto) 89.6 H Lymph % (Auto) 6.4 L Hamilton % (Auto) 3.9 Eos % (Auto) 0.0 L Baso % (Auto) 0.1 Neut # (Auto) 69851 H Lymph # (Auto) 1100 [place] # (Auto) 700 Eos # (Auto) 0 Baso # (Auto) 0 Assessment & Plan Assessment & Plan narrative: Assessment: 1. Acute cystitis 2. Likely CKD stage III/IV, likely from DM II and hypertension 3. Insulin-dependent DM II 4. Hypertension 5. Hyperlipidemia 6. Hx of anxiety disorder Plan: 1. Recommend starting IV ceftriaxone 1000 mg once daily, with first dose given on August 21, 2021. Unfortunately, patient already received 1 dose of IV ceftri axone before urine culture collected. Discussed with CHIOMA Palma at bedside the need to still send out urine culture after straight cath. Recommend transitioning patient to PO antibiotic based on clinical improvement, leukocytosis improvement, and guided by urine culture results and susceptibilities. If urine culture does not yield pathogen, then recommend basing choice of PO antibiotic on previous results, i.e. E. coli, with preference to cephalexin, since pt's CKD makes her high-risk for Bactrim, along with her borderline elevated K. She will also not likely improve on PO nitrofurantoin, given high JACKSON. 2. The patient appears to be on losartan chronically, despite her CKD, and so it's likely stable, and losartan is there as anti-proteinuric nephroprotectant. If Cr continues to increase or her K, recommend holding losartan and re- evaluating outpatient. 3. A1c 6.4%, and so relatively well-controlled on current insulin regimen, although it is more likely that her diabetic nephropathy has advanced, greatly reducing endogenous insulin excretion. 4. Patient is unclear as to what her current medications are. Her listed meds seem appropriate, and losartan discussed per problem 2. 5. Continue home simvastatin. Plavix is on-board, and likely there because patient has aspirin allergy. Recommend mono antiplatelet therapy with just Plavix, given pt's aspirin allergy, and her bleeding risks of age, sex category, CKD, and hypertension. 6. Ideally, patient would not be on buspirone and sertraline simultaneously, given the risk for serotonin syndrome, but if she has been stable on these meds chronically, then it's OK. VTE prophylaxis: Will defer to primary team Code Status: Full Code I have utilized all available immediate resources to obtain, update, or confirm the patient's current medications. Thank you for this consult. Hospital medicine will sign-off at this time. Please re-consult if needed. Time Spent With Patient Critical Care time: I spent a total of [] minutes of critical care time on this patient's care today; this time is exclusive of procedural time. Quality MIPS - Admit I confirm the patient?s Advance Care Plan is present, Code status is documented, Surrogate decision maker is in patient?s record [If Yes, STOP here]: Yes
[2021-08-21] MEDS: INSULIN LISPRO 100 UNIT/ML 3ML VIAL 6 UNIT SUBCUT (17:31)
[2021-08-21] MEDS: ATORVASTATIN 20 MG TABLET 10 MG PO (20:29)
[2021-08-21] MEDS: NIFEdipine 30 MG TAB ER 60 MG PO (20:29)
[2021-08-21] MEDS: DOXAZOSIN 4 MG TABLET 8 MG PO (20:30)
[2021-08-21] MEDS: INSULIN GLARGINE 100 UNIT/ML 3ML PEN 14 UNIT SUBCUT (20:33)
[2021-08-22] VITALS (12 sets, daily range): BP systolic 137–168; BP diastolic 46–77; PULSE 58–69; RESP 14–18; TEMP 36.6–37.6; O2SAT 92–96
[2021-08-22] MEDS: OXYCODONE IR 5 MG TABLET PO ×2 (02:24→06:46)
[2021-08-22] MEDS: ALPRAZolam 0.25 MG TABLET PO ×2 (03:18→23:37)
[2021-08-22] MEDS: OXYCODONE IR 10 MG TABLET PO ×4 (07:56→20:42)
[2021-08-22] MEDS: MULTIVITAMIN 1 TABLET 1 TAB PO (08:32)
[2021-08-22] MEDS: ASPIRIN EC 81 MG TABLET PO (08:32)
[2021-08-22] MEDS: FUROSEMIDE 20 MG TABLET PO ×2 (08:32→20:41)
[2021-08-22] MEDS: MAGNESIUM OXIDE 400 MG TABLET 800 MG PO (08:32)
[2021-08-22] MEDS: predniSONE 5 MG TABLET PO (08:32)
[2021-08-22] MEDS: ISOSORBIDE MONONITRATE ER 30 MG TABLET PO (08:32)
[2021-08-22] MEDS: BUSPIRONE 5 MG TABLET PO ×3 (08:32→20:42)
[2021-08-22] MEDS: ACETAMINOPHEN 325 MG TABLET 650 MG PO ×3 (08:32→20:43)
[2021-08-22] MEDS: HYDRALAZINE 10 MG TABLET PO ×3 (08:33→20:42)
[2021-08-22] MEDS: CLOPIDOGREL 75 MG TABLET PO (08:33)
[2021-08-22] MEDS: carvediloL 12.5 MG TABLET 25 MG PO ×2 (08:34→20:41)
[2021-08-22] MEDS: SERTRALINE 50 MG TABLET PO (08:34)
[2021-08-22] MEDS: LOSARTAN 50 MG TABLET PO ×2 (08:34→20:43)
[2021-08-22] MEDS: DOCUSATE 100 MG CAPSULE PO ×2 (08:34→20:43)
[2021-08-22] MEDS: INSULIN LISPRO 100 UNIT/ML 3ML VIAL 6 UNIT SUBCUT ×2 (08:37→20:45)
--- NOTE | 2021-08-22 09:15 | PT.IPTN ---
Current Diagnoses Anemia, unspecified (08/20/21) Type 2 diabetes mellitus without complications (08/20/21) Essential (primary) hypertension (08/20/21) Heart failure, unspecified (08/20/21) Unilateral primary osteoarthritis, right knee (08/20/21) Chronic kidney disease, stage 4 (severe) (08/20/21) Urinary tract infection, site not specified (08/20/21) Presence of right artificial knee joint (08/20/21) Surgery Performed Operation Date: 08/20/21 14:15 Actual Procedures p Total Knee Arthroplasty(Right) - Mahogany Stout MD Physical Therapy Treatment Note M2 PT-IP Current Condition Start: 08/21/21 12:28 Freq: NEEDED Status: Active Protocol: Document 08/21/21 09:15 AB (Rec: 08/21/21 12:43 AB [email or web address]) Physical Therapy Current Condition Current Condition Evaluation Date 08/21/21 Treatment Diagnosis s/p R TKA; difficulty in walking Onset Date 08/20/21 M3 PT-IP Subjective Start: 08/21/21 12:28 Freq: NEEDED Status: Active Protocol: Document 08/22/21 09:15 AB (Rec: 08/22/21 10:39 AB [email or web address]) Subjective Physical Therapy Visit Type Type Treatment Note Visit Start Time 09:15 Visit Stop Time 09:48 Total Visit Minutes 33 Number of RECYCLING OPERATOR Visits 0 Physical Therapy Visit Comments Patient Comments initially stated that she cannot move today; encouraged pt and stated that she will do anything to get better Therapy Pain Assessment Pain When Pain Assessed At Rest Pain Present Pain Present Pain Reported Location r knee Scale Used increases with mobility Pain Management Techniques Apply Cold,Distraction, Modification of Treatment,Re- positioning,Timing of Activity with Medications M4 PT-IP Mobility and Gait Start: 08/21/21 12:28 Freq: NEEDED Status: Active Protocol: Document 08/22/21 09:15 AB (Rec: 08/22/21 10:39 AB [email or web address]) PT-Bed Mobility Assessment Supine to Sit Supine to Sit Maximum Assistance,1 Person Assistance,Head of Bed Elevated,Bedrails Scooting Scooting to Edge of Bed Maximum Assistance PT-Transfer Assessment Sit to and From Stand Sit to and from Stand Maximum Assistance,1 Person Assistance,2 Person Assistance ,Use of Upper Extremities Equipment Transfer Assistive Device Gait Belt,Front Wheeled Walker Orthotic/Prosthetic Devices or Brace: No Transfers Transfer Destination Chair Transfer Technique Stand Step Pivot Transfer Ability Level of Assist Maximum Assistance,1 Person Assistance,2 Person Assistance ,Use of Upper Extremities Comments Mobility Comments pt supine in bed. RLE in ER and ~ 30 deg of flexion. completed PROM prior to mobility. c/o increase pain. conducted slight MFR and trigger point pain management to improve R knee ROM. pt completed sit to stand max A x 1-2 and max cues. continues to have increase posterior trunk lean and cued to use UE on FWW for support. completed step transfer to chair using FWW max A x 1-2 and max cues. pt positioned on chair. completed R knee extensor stretching in seated position and continue with MFR on IT band and hamstrings and trigger point pain management on quads. pt completed knee extension/flexion in seated position. pt agreed to ambulate. completed sit to stand max A and cues and ambulated ~ 8 ft using FWW max A and cues and chair follow. presents with antalgic gait and NBOS with RLE tends to ER and cross over midline. cued posture and correcting RLE positioning. noted R ankle eversion. pt sat on chair. positioned on chair. call light and table placed within reach. Gait Assessment Gait Gait Assistance Required: Maximum Assistance,1 Person Assist Distance (Feet) 8 Able to Maintain Weight Bearing Status Yes During Gait Assistive Devices Assistive Device Gait Belt,Front Wheeled Walker Orthotic/Prosthetic Devices or Brace: No Gait Deviations General Gait Pattern Antalgic,Decreased Stride Length,Decreased Feet Clearance,Lateral Trunk Lean, Narrow Based Gait,Step-to Gait Factors Limiting Gait Function Factors Limiting Gait Function Decreased Activity Tolerance, Decreased Strength,Difficulty Following Directions,Limited Range of Motion,Pain,Poor Balance,Poor Safety Awareness Comments Gait Comments pls refer to mobility section for details M5 PT-IP Objective Assessments Start: 08/21/21 12:28 Freq: NEEDED Status: Active Protocol: Document 08/21/21 09:15 AB (Rec: 08/21/21 12:43 AB [id number]) Orientation Orientation/Cognition Level of Alertness Alert Orientation Name Language Function Ability Korean as Second Language Safety Awareness Decreased Safety Awareness Memory Description Short Term Impaired Gross Range of Motion Lower Extremity ROM Assessment Right Impaired Impairments R knee flexion: ~ 40 deg R knee extension: ~ 20 deg less to 0 Strength Comments Strength Comments RLE: 3-/5 LLE: 4-/5 Coordination Assessment Gross Coordination Gross Coordination WNL Muscle Tone Muscle Tone WNL Yes M6 PT-IP Treatment Start: 08/21/21 12:28 Freq: NEEDED Status: Active Protocol: Document 08/22/21 09:15 AB (Rec: 08/22/21 10:39 AB [id number]) Physical Therapy Treatment Exercises Exercises Heel Slides,Seated Knee Flexion/Extension Education Education Provided Safety Other Treatments Other Treatment Performed pls refer to mobility section for details M7 PT-IP Assessment and Plan Start: 08/21/21 12:28 Freq: NEEDED Status: Active Protocol: Document 08/22/21 09:15 AB (Rec: 08/22/21 10:39 AB [id number]) PT Summary Assessment and Plan Potential Rehabilitation Potential Fair Summary Impairments Pain,ROM,Strength,Balance, Coordination,Sensation,Tone, Cognition,Bed Mobility, Transfers,Gait,Activity Tolerance Progress Towards Goals Slow Progress due to Pain,Slow Progress due to Medical Issues,Slow Progress due to Activity Tolerance Assessment Summary pt continues to require max A x 1-2 for mobility and unable to tolerate much activity with c/o increase R knee pain. pt will require SNF rehab to improve strength and function. Goals Bed Mobility Goal Standby Assistance Transfer Goal Standby Assistance,Front Wheeled Walker Gait Goal Standby Assistance,Front Wheel Walker Gait Distance 100 Other Goals improve ambulation using FWW/ 4 WW 150 ft SBA Days to Meet Goals 10 Frequency of Treatment Frequency Of Treatment Twice a Day Treatment Plan Physical Therapy Treatment Plan Bed Mobility Training,Transfer Training,Gait Training, Therapeutic Exercise,Balance Retraining,Post Op Education, Discharge Planning,Hot or Cold Pack,Neuromuscular Re-ed, Coordination Retraining,Manual Therapy Weight Bearing Status Weight Bearing Status Weight Bear as Tolerated Allowed Weight Bearing Amount (enter % RLE WBAT or #) (%) Recommendations To Nursing Amount of Assist Needed 2 Person Assist Discharge Recommendations PT Discharge Recommendations SNF Rehab Transportation Needs at Discharge Wheelchair/Cabulance
--- NOTE | 2021-08-22 09:32 | P.PN_ITS ---
Subjective Subjective Date Patient Seen: 08/22/21 Time Patient Seen: 09:32 Interval history: Pt had LEFT TKA in August 2020 and reports her recovery following that surgery was much easier than this surgery; reports increased pain. Complains of constant, severe ache. Dr Stout was contacted about this earlier this morning and increased her oxycodone to 10 mg q 3 hours. Exam Vital Signs (past 8 hours): - 08/22/21 03:27 08/22/21 07:00 08/22/21 08:33 Temperature 98.5 F 99.7 F H Pulse Rate 64 64 64 Respiratory Rate 18 18 Blood Pressure 137/77 165/52 H 156/56 H Pulse Oximetry 94 96 08/22/21 08:34 Temperature Pulse Rate 64 Respiratory Rate Blood Pressure 156/52 H Pulse Oximetry Oxygen Delivery Method Room Air Oxygen Flow Rate 0 Narrative Exam Narrative: Hesitation w/ exam d/t pain. 08/27 DF, PF, EHL. Sensation to touch intact throughout BLE. Calves soft, compressible, nontender and without palpable cords or masses. Aquacel dressing saturated w/ blood at distal portion; this was c hanged sterilely, ROSEANN wrap replaced. Objective Labs Result Diagrams: 08/21/21 04:20 [facility], [facility] Medical History (Updated 08/21/21 @ 09:49 by Radha Levin PA-C) Anemia Anxiety Atypical chest pain Cataracts, bilateral CKD (chronic kidney disease), stage IV Congestive heart failure CVA (cerebral vascular accident) Diabetes Diabetic macular edema Diabetic neuropathy Diabetic retinopathy Diastolic dysfunction Edema Essential thrombocythemia Essential thrombocytosis Gait disorder GERD (gastroesophageal reflux disease) Glaucoma HTN (hypertension) Hypercholesterolemia Hyponatremia Insomnia Left ventricular hypertrophy Major depressive disorder Osteoarthritis Pain Pseudophakia of left eye Vitreous hemorrhage of right eye Surgical History (Updated 08/21/21 @ 09:43 by Radha Levin PA-C) History of arthroplasty of left knee (04/01/20) Social History household members: none Smoking Status: Former smoker alcohol intake: never Assessment & Plan Post-op Assessment and plan (1) Status post total knee replacement, right: Assessment and Plan narrative: Will d/c ASA and continue Plavix only for VTE prophylaxis per hospitalist recommendation. Will add Vistaril to help with pain management. Plan for d/c to SNF on 08/24/2021. (2) UTI (urinary tract infection): Assessment and Plan narrative: Will continue to treat per hospitalist recommendations: IV ceftriaxone 1000 mg once daily, transitioning patient to PO antibiotic based on clinical improvement, leukocytosis improvement, and guided by urine culture results and susceptibilities. If urine culture does not yield pathogen, then recommend basing choice of PO antibiotic on previous results, i.e. E. coli, with preference to cephalexin, since pt's CKD makes her high-risk for Bactrim, along with her borderline elevated K. She will also not likely improve on PO nit rofurantoin, given high JACKSON. (3) Acute on chronic anemia: Assessment and Plan narrative: Repeat H/H ordered; will transfuse as appropriate based on results, but pt currently showing no clinical signs that would suggest need for transfusion. (4) CKD (chronic kidney disease), stage IV: Postoperative Procedures: Procedures Operation Date: 08/20/21 14:15 Actual Procedure Side Surgeon p Total Knee Arthroplasty Right Mahogany Stout MD Postoperative day: 2
[2021-08-22] MEDS: cefTRIAXone 1,000 MG in SODIUM CHLORIDE 0.9% 100 ML 200 ML IV (10:08)
[2021-08-22] MEDS: hydrOXYzine pamoate 25 MG CAPSULE PO (11:38)
[2021-08-22 12:51] LABS: Alanine Aminotransferase 5 IU/L (<35); Albumin 3.7 g/dL (3.5-5.0); Albumin Globulin Ratio 1.5 (1.0-2.8); Alkaline Phosphatase 65 U/L (38-126); Aspartate Aminotransferase 27 IU/L (14-36); BUN Creatinine Ratio 27.3 (6-22); Bilirubin Total 0.2 mg/dL (0.2-1.3); Blood Urea Nitrogen 57 mg/dL (7-17); Calcium 8.4 mg/dL (8.4-10.2); Carbon Dioxide 29 mmol/L (22-32); Chloride 100 mmol/L (98-107); Estimated Glomerular Filt Rate 24 mL/min (>60); Globulin 2.4 g/dL (1.7-4.1); Glucose 137 mg/dL (80-110); HEMOLYSIS < 15 (0-50); Potassium 3.7 mmol/L (3.4-5.1); Sodium 137 mmol/L (137-145); Total Protein 6.1 g/dL (6.3-8.2)
[2021-08-22 12:53] LABS: Hematocrit 24.1 % (36-46); Hemoglobin 7.9 g/dL (12.0-16.0); Mean Corpuscular HGB Conc 32.8 % (30-36); Mean Corpuscular Hemoglobin 31.9 PG (26-34); Mean Corpuscular Volume 97.2 fL (80-100); Platelet Count 195 X10^3/uL (150-400); Red Blood Cell Count 2.48 X10^6/uL (4.0-5.2); Red Cell Distribution Width 14.2 % (11.6-14.8); White Blood Cell Count 11.8 X10^3/uL (4.5-11.0)
--- NOTE | 2021-08-22 13:00 | PT.IPTN ---
Current Diagnoses Anemia, unspecified (08/20/21) Type 2 diabetes mellitus without complications (08/20/21) Essential (primary) hypertension (08/20/21) Heart failure, unspecified (08/20/21) Unilateral primary osteoarthritis, right knee (08/20/21) Chronic kidney disease, stage 4 (severe) (08/20/21) Urinary tract infection, site not specified (08/20/21) Presence of right artificial knee joint (08/20/21) Surgery Performed Operation Date: 08/20/21 14:15 Actual Procedures p Total Knee Arthroplasty(Right) - Mahogany Stout MD Physical Therapy Treatment Note M2 PT-IP Current Condition Start: 08/21/21 12:28 Freq: NEEDED Status: Active Protocol: Document 08/21/21 09:15 AB (Rec: 08/21/21 12:43 AB [email or web address]) Physical Therapy Current Condition Current Condition Evaluation Date 08/21/21 Treatment Diagnosis s/p R TKA; difficulty in walking Onset Date 08/20/21 M3 PT-IP Subjective Start: 08/21/21 12:28 Freq: NEEDED Status: Active Protocol: Document 08/22/21 13:00 AB (Rec: 08/22/21 13:54 AB [email or web address]) Subjective Physical Therapy Visit Type Type Treatment Note Visit Start Time 13:00 Visit Stop Time 13:20 Total Visit Minutes 20 Number of DEALER CARD ROOM Visits 0 Physical Therapy Visit Comments Patient Comments agreeable to do PT Therapy Pain Assessment Pain When Pain Assessed At Rest Pain Present Pain Present Pain Reported Location r knee Scale Used c/o a lot of pain Pain Behaviors Facial Grimacing,Guarding, Holding Area,Wincing Pain Management Techniques Distraction,Modification of Treatment,Re-positioning, Timing of Activity with Medications M4 PT-IP Mobility and Gait Start: 08/21/21 12:28 Freq: NEEDED Status: Active Protocol: Document 08/22/21 13:00 AB (Rec: 08/22/21 13:54 AB [email or web address]) PT-Bed Mobility Assessment Sit to Supine Sit to Supine Maximum Assistance,2 Person Assistance PT-Transfer Assessment Sit to and From Stand Sit to and from Stand Maximum Assistance,1 Person Assistance,2 Person Assistance ,Use of Upper Extremities Equipment Transfer Assistive Device Gait Belt,Front Wheeled Walker Orthotic/Prosthetic Devices or Brace: No Transfers Transfer Destination Bed Transfer Technique ambulated Transfer Ability Level of Assist Maximum Assistance,1 Person Assistance,2 Person Assistance ,Use of Upper Extremities Comments Mobility Comments pt sitting on chair and agreed to do PT but requested to go back to bed afterwards. pt also needs to be cleaned up and brief changed. NAC in room. pt completed sit to stand max A x 1-2 and max cues . continues to have increase posterior trunk lean and max cues to use FWW for support requiring max A for standing balance. NAC assisted pt with brief management. pt agreed to ambulate and completed ~ 2 ft using FWW max A x 1-2 and max cues and c/o increase knee pain and stated that she cannot do any more walking. pt backup onto the bed using FWW max A x 1-2 and was able to take side steps towards HOB ~ 3 ft max A x 1-2 and max cues using FWW. completed sit to supine max A x 2 and max cues. positioned pt in bed. call light and table placed within reach. Gait Assessment Gait Gait Assistance Required: Maximum Assistance,1 Person Assist,2 Person Assist Distance (Feet) 3 Able to Maintain Weight Bearing Status Yes During Gait Assistive Devices Assistive Device Gait Belt,Front Wheeled Walker Orthotic/Prosthetic Devices or Brace: No Gait Deviations General Gait Pattern Antalgic,Decreased Stride Length,Decreased Feet Clearance,Step-to Gait Factors Limiting Gait Function Factors Limiting Gait Function Decreased Activity Tolerance, Decreased Strength,Difficulty Following Directions,Limited Range of Motion,Pain,Poor Balance,Poor Safety Awareness M5 PT-IP Objective Assessments Start: 08/21/21 12:28 Freq: NEEDED Status: Active Protocol: Document 08/21/21 09:15 AB (Rec: 08/21/21 12:43 AB [email or web address]) Orientation Orientation/Cognition Level of Alertness Alert Orientation Name Language Function Ability Vincentian as Second Language Safety Awareness Decreased Safety Awareness Memory Description Short Term Impaired Gross Range of Motion Lower Extremity ROM Assessment Right Impaired Impairments R knee flexion: ~ 40 deg R knee extension: ~ 20 deg less to 0 Strength Comments Strength Comments RLE: 3-/5 LLE: 4-/5 Coordination Assessment Gross Coordination Gross Coordination WNL Muscle Tone Muscle Tone WNL Yes M6 PT-IP Treatment Start: 08/21/21 12:28 Freq: NEEDED Status: Active Protocol: Document 08/22/21 13:00 AB (Rec: 08/22/21 13:54 AB [email or web address]) Physical Therapy Treatment Exercises Exercises Seated Knee Flexion/Extension Education Education Provided Safety M7 PT-IP Assessment and Plan Start: 08/21/21 12:28 Freq: NEEDED Status: Active Protocol: Document 08/22/21 13:00 AB (Rec: 08/22/21 13:54 AB [id number]) PT Summary Assessment and Plan Potential Rehabilitation Potential Fair Summary Impairments Pain,ROM,Strength,Balance, Coordination,Sensation,Tone, Cognition,Bed Mobility, Transfers,Gait,Activity Tolerance Progress Towards Goals Slow Progress due to Pain,Slow Progress due to Activity Tolerance Assessment Summary pt continues to have decrease activity tolerance with c/o increase R knee pain. pt requires max A x 1-2 and max cues. pt will need SNF rehab to improve mobility. Goals Bed Mobility Goal Standby Assistance Transfer Goal Standby Assistance,Front Wheeled Walker Gait Goal Standby Assistance,Front Wheel Walker Gait Distance 100 Other Goals improve ambulation using FWW/ 4 WW 150 ft SBA Days to Meet Goals 10 Frequency of Treatment Frequency Of Treatment Twice a Day Treatment Plan Physical Therapy Treatment Plan Bed Mobility Training,Transfer Training,Gait Training, Therapeutic Exercise,Balance Retraining,Post Op Education, Discharge Planning,Hot or Cold Pack,Neuromuscular Re-ed, Coordination Retraining,Manual Therapy Weight Bearing Status Weight Bearing Status Weight Bear as Tolerated Allowed Weight Bearing Amount (enter % RLE WBAT or #) (%) Recommendations To Nursing Amount of Assist Needed 2 Person Assist Discharge Recommendations PT Discharge Recommendations SNF Rehab Transportation Needs at Discharge Wheelchair/Cabulance
[2021-08-22] MEDS: NIFEdipine 30 MG TAB ER 60 MG PO (20:41)
[2021-08-22] MEDS: DOXAZOSIN 4 MG TABLET 8 MG PO (20:42)
[2021-08-22] MEDS: INSULIN GLARGINE 100 UNIT/ML 3ML PEN 14 UNIT SUBCUT (20:44)
[2021-08-22] MEDS: ATORVASTATIN 20 MG TABLET 10 MG PO (20:44)
[2021-08-22] MEDS: SODIUM CHLORIDE 0.9% FLUSH 10 ML IV (20:45)
--- NOTE | 2021-08-22 22:31 | PC.NURSE ---
Patient is alert and oriented. Breath sounds CTA with RA sat of 92%. HR irregular with rate of 58. BP elevated at 165/53 and is on several antihypertensive meds. Denies nausea. BT present and is passing flatus. States she has dysuria and has been diagnosed with probable UTI and is on antibiotics; incontinent of urine. Is able to assist with repositioning. Gait not assessed at this time. Complained of 10/10 grabbing right knee pain and was medicated with oxycodone earlier and is currently asleep. Wearing calf SCD on left leg only due to discomfort in right leg. Denies tingling/numbness but has difficulty lifting right leg off bed. Aquacel dressing to right knee is intact with 2 small spots of drainage noted. Fall risk score is high and bed alarm is activated.
[2021-08-23] VITALS (14 sets, daily range): BP systolic 110–148; BP diastolic 45–48; PULSE 62–87; RESP 14–18; TEMP 36.3–37.3; O2SAT 90–95
[2021-08-23] MEDS: OXYCODONE IR 10 MG TABLET PO ×2 (00:03→04:59)
[2021-08-23] MEDS: hydrOXYzine pamoate 25 MG CAPSULE PO ×2 (04:59→23:15)
--- NOTE | 2021-08-23 08:16 | PM.PNPO.1 ---
Subjective Subjective Date Patient Seen: 08/23/21 Time Patient Seen: 08:16 Interval history: She continues to note ongoing problems with substantial pain in the knee. She describes it as a global pain from the entire thigh distally. The did mobilize her some out of bed to a chair yesterday. We added Vistaril for pain management. She has impaired kidney function and cannot have anti-inflammatories. Exam Vital Signs (past 8 hours): - 08/23/21 04:40 Temperature 98.9 F Pulse Rate 73 Respiratory Rate 14 Blood Pressure 140/45 L Pulse Oximetry 94 Oxygen Delivery Method Room Air Oxygen Flow Rate 0 Narrative Exam Narrative: She is resting comfortably in bed her dressing is intact she has some moderate pain from the anterior thigh distally she has a moderate right knee effusion calf to soft distally and posterior calf to soft dressings intact she can fire toe flexors and extensors distally. She has adequate capillary refill. Objective Labs Result Diagrams: 08/22/21 12:30 08/22/21 12:30 Labs: Laboratory Results - last 24 hr 08/22/21 08/22/21 12:30 12:30 WBC 11.8 H RBC 2.48 L Hgb 7.9 L Hct 24.1 L MCV 97.2 MCH 31.9 MCHC 32.8 RDW 14.2 Plt Count 195 Sodium 137 Potassium 3.7 Chloride 100 Carbon Dioxide 29 BUN 57 H Creatinine 2.09 H Estimated GFR 24 L BUN/Creatinine Ratio 27.3 H Glucose 137 H D Calcium 8.4 Total Bilirubin 0.2 AST 27 ALT 5 Alkaline Phosphatase 65 Total Protein 6.1 L Albumin 3.7 Globulin 2.4 Albumin/Globulin Ratio 1.5 [facility] Medical History (Updated 08/21/21 @ 09:49 by Radha Levin PA-C) Anemia Anxiety Atypical chest pain Cataracts, bilateral CKD (chronic kidney disease), stage IV Congestive heart failure CVA (cerebral vascular accident) Diabetes Diabetic macular edema Diabetic neuropathy Diabetic retinopathy Diastolic dysfunction Edema Essential thrombocythemia Essential thrombocytosis Gait disorder GERD (gastroesophageal reflux disease) Glaucoma HTN (hypertension) Hypercholesterolemia Hyponatremia Insomnia Left ventricular hypertrophy Major depressive disorder Osteoarthritis Pain Pseudophakia of left eye Vitreous hemorrhage of right eye Surgical History (Updated 08/21/21 @ 09:43 by Radha Levin PA-C) History of arthroplasty of left knee (04/01/20) Social History household members: none Smoking Status: Former smoker alcohol intake: never Assessment & Plan Post-op Postoperative Procedures: Procedures Operation Date: 08/20/21 14:15 Actual Procedure Side Surgeon p Total Knee Arthroplasty Right Mahogany Stout MD Postoperative day: 3 Postoperative status: marginal pain control Postoperative status narrative: Are still continuing to have problems with pain control. Again a had tramadol and oral Dilaudid to see if we can get better pain control with a different agent. She is going to continue to attempt to mobilize with physical therapy. Anticipate discharge to rehab probably tomorrow. She has been having some chronic problems with significant pain in her knee prior to her surgery. Time Spent With Patient Time with patient: 15-24 minutes
[2021-08-23] MEDS: ACETAMINOPHEN 325 MG TABLET 650 MG PO ×3 (08:35→21:01)
[2021-08-23] MEDS: BUSPIRONE 5 MG TABLET PO ×3 (08:36→21:01)
[2021-08-23] MEDS: carvediloL 12.5 MG TABLET 25 MG PO ×2 (08:36→21:02)
[2021-08-23] MEDS: CLOPIDOGREL 75 MG TABLET PO (08:37)
[2021-08-23] MEDS: HYDRALAZINE 10 MG TABLET PO ×3 (08:37→21:01)
[2021-08-23] MEDS: FUROSEMIDE 20 MG TABLET PO ×2 (08:37→21:01)
[2021-08-23] MEDS: DOCUSATE 100 MG CAPSULE PO ×2 (08:37→21:00)
[2021-08-23] MEDS: MAGNESIUM OXIDE 400 MG TABLET 800 MG PO (08:38)
[2021-08-23] MEDS: LOSARTAN 50 MG TABLET PO ×2 (08:38→21:00)
[2021-08-23] MEDS: ISOSORBIDE MONONITRATE ER 30 MG TABLET PO (08:38)
[2021-08-23] MEDS: TRAMADOL 50 MG TABLET PO ×3 (08:39→22:37)
[2021-08-23] MEDS: SERTRALINE 50 MG TABLET PO (08:39)
[2021-08-23] MEDS: MULTIVITAMIN 1 TABLET 1 TAB PO (08:39)
[2021-08-23] MEDS: SODIUM CHLORIDE 0.9% FLUSH 10 ML IV ×2 (08:39→21:03)
[2021-08-23] MEDS: predniSONE 5 MG TABLET PO (08:39)
[2021-08-23] MEDS: INSULIN LISPRO 100 UNIT/ML 3ML VIAL 6 UNIT SUBCUT ×3 (08:42→17:38)
[2021-08-23] MEDS: cefTRIAXone 1,000 MG in SODIUM CHLORIDE 0.9% 100 ML 200 ML IV (08:46)
[2021-08-23] MEDS: HYDROMORPHONE 2 MG TABLET PO ×2 (09:28→16:52)
--- NOTE | 2021-08-23 10:56 | PT.IPTN ---
Current Diagnoses Anemia, unspecified (08/20/21) Type 2 diabetes mellitus without complications (08/20/21) Essential (primary) hypertension (08/20/21) Heart failure, unspecified (08/20/21) Unilateral primary osteoarthritis, right knee (08/20/21) Chronic kidney disease, stage 4 (severe) (08/20/21) Urinary tract infection, site not specified (08/20/21) Presence of right artificial knee joint (08/20/21) Surgery Performed Operation Date: 08/20/21 14:15 Actual Procedures p Total Knee Arthroplasty(Right) - Mahogany Stout MD Physical Therapy Treatment Note M2 PT-IP Current Condition Start: 08/21/21 12:28 Freq: NEEDED Status: Active Protocol: Document 08/21/21 09:15 AB (Rec: 08/21/21 12:43 AB [email or web address]) Physical Therapy Current Condition Current Condition Evaluation Date 08/21/21 Treatment Diagnosis s/p R TKA; difficulty in walking Onset Date 08/20/21 M3 PT-IP Subjective Start: 08/21/21 12:28 Freq: NEEDED Status: Active Protocol: Document 08/23/21 10:56 AW (Rec: 08/23/21 11:38 AW [id number]) Subjective Physical Therapy Visit Type Type Treatment Note Visit Start Time 10:37 Visit Stop Time 10:56 Total Visit Minutes 19 Number of HOUSE BUILDER Visits 0 Physical Therapy Visit Comments Patient Comments Pt is very drowsy but states I'll do whatever I need to do to get better. Therapy Pain Assessment Pain When Pain Assessed At Rest Pain Present Pain Present Pain Reported Location r knee Scale Used highly irritable pain with all movement Pain Behaviors Facial Grimacing,Guarding, Moaning,Wincing Pain Management Techniques Apply Cold,Distraction, Modification of Treatment,Re- positioning,Timing of Activity with Medications M4 PT-IP Mobility and Gait Start: 08/21/21 12:28 Freq: NEEDED Status: Active Protocol: Document 08/23/21 10:56 AW (Rec: 08/23/21 11:38 AW [id number]) PT-Bed Mobility Assessment Supine to Sit Supine to Sit Maximum Assistance,1 Person Assistance,Head of Bed Elevated,Bedrails Sit to Supine Sit to Supine Maximum Assistance,2 Person Assistance Scooting Scooting to Edge of Bed Maximum Assistance Scooting Up and Down in Bed Dependent PT-Transfer Assessment Sit to and From Stand Sit to and from Stand Maximum Assistance,2 Person Assistance,Use of Upper Extremities Equipment Transfer Assistive Device Gait Belt,Front Wheeled Walker Orthotic/Prosthetic Devices or Brace: No Transfers Transfer Destination Bed Transfer Technique sit<>stand Comments Mobility Comments Pt was sitting up in bed as PT arrived. PETROLOGIST arrived to complete briefs change. PT completed PROM RLE with pt c/o increased pain. Max A x 1 to sit up EOB and min/mod A for seated balance. Pt had difficulty keeping her eyes open. PETROLOGIST assisted with attempts to stand x 3 but pt was unable to overcome posterior lean to clear her hips from the bed and unable to safely attend to task. Pt was assisted back to bed max A x 2 and was dependent for scooting up on the bed. Pt was left with PETROLOGIST attending. Gait Assessment Comments Gait Comments Unable to safely ambulate this AM M5 PT-IP Objective Assessments Start: 08/21/21 12:28 Freq: NEEDED Status: Active Protocol: Document 08/21/21 09:15 AB (Rec: 08/21/21 12:43 AB [email or web address]) Orientation Orientation/Cognition Level of Alertness Alert Orientation Name Language Function Ability Thai as Second Language Safety Awareness Decreased Safety Awareness Memory Description Short Term Impaired Gross Range of Motion Lower Extremity ROM Assessment Right Impaired Impairments R knee flexion: ~ 40 deg R knee extension: ~ 20 deg less to 0 Strength Comments Strength Comments RLE: 3-/5 LLE: 4-/5 Coordination Assessment Gross Coordination Gross Coordination WNL Muscle Tone Muscle Tone WNL Yes M6 PT-IP Treatment Start: 08/21/21 12:28 Freq: NEEDED Status: Active Protocol: Document 08/23/21 10:56 AW (Rec: 08/23/21 11:38 AW [id number]) Physical Therapy Treatment Exercises Exercises Heel Slides,Passive Knee Extension Hang Education Education Provided Safety Other Treatments Other Treatment Performed STM distal hamstrings, passive extension and PROM prior to mobility. M7 PT-IP Assessment and Plan Start: 08/21/21 12:28 Freq: NEEDED Status: Active Protocol: Document 08/23/21 10:56 AW (Rec: 08/23/21 11:38 AW [id number]) PT Summary Assessment and Plan Potential Rehabilitation Potential Fair Summary Impairments Pain,ROM,Strength,Balance, Coordination,Sensation,Tone, Cognition,Bed Mobility, Transfers,Gait,Activity Tolerance Progress Towards Goals Slow Progress due to Pain,Slow Progress due to Activity Tolerance Assessment Summary Pt quite groggy this AM possibly due to pain medication which limited her ability to participate. She continues to require max A x 2 for limited mobility. She will need SNF rehab to improve mobility and strength. Goals Bed Mobility Goal Standby Assistance Transfer Goal Standby Assistance,Front Wheeled Walker Gait Goal Standby Assistance,Front Wheel Walker Gait Distance 100 Other Goals improve ambulation using FWW/ 4 WW 150 ft SBA Days to Meet Goals 10 Frequency of Treatment Frequency Of Treatment Twice a Day Treatment Plan Physical Therapy Treatment Plan Bed Mobility Training,Transfer Training,Gait Training, Therapeutic Exercise,Balance Retraining,Post Op Education, Discharge Planning,Hot or Cold Pack,Neuromuscular Re-ed, Coordination Retraining,Manual Therapy Weight Bearing Status Weight Bearing Status Weight Bear as Tolerated Allowed Weight Bearing Amount (enter % RLE WBAT or #) (%) Recommendations To Nursing Amount of Assist Needed 2 Person Assist Discharge Recommendations PT Discharge Recommendations SNF Rehab Transportation Needs at Discharge Wheelchair/Cabulance
--- NOTE | 2021-08-23 12:24 | PT.IPTN ---
Current Diagnoses Anemia, unspecified (08/20/21) Type 2 diabetes mellitus without complications (08/20/21) Essential (primary) hypertension (08/20/21) Heart failure, unspecified (08/20/21) Unilateral primary osteoarthritis, right knee (08/20/21) Chronic kidney disease, stage 4 (severe) (08/20/21) Urinary tract infection, site not specified (08/20/21) Presence of right artificial knee joint (08/20/21) Surgery Performed Operation Date: 08/20/21 14:15 Actual Procedures p Total Knee Arthroplasty(Right) - Mahogany Stout MD Physical Therapy Treatment Note M2 PT-IP Current Condition Start: 08/21/21 12:28 Freq: NEEDED Status: Active Protocol: Document 08/21/21 09:15 AB (Rec: 08/21/21 12:43 AB [email or web address]) Physical Therapy Current Condition Current Condition Evaluation Date 08/21/21 Treatment Diagnosis s/p R TKA; difficulty in walking Onset Date 08/20/21 M3 PT-IP Subjective Start: 08/21/21 12:28 Freq: NEEDED Status: Active Protocol: Document 08/23/21 12:24 AW (Rec: 08/23/21 12:38 AW [id number]) Subjective Physical Therapy Visit Type Type Treatment Note Visit Start Time 12:00 Visit Stop Time 12:24 Total Visit Minutes 24 Number of COLLECTION DEVELOPMENT LIBRARIAN Visits 0 Physical Therapy Visit Comments Patient Comments Pt is groggy but alertness increases with activity. Therapy Pain Assessment Pain When Pain Assessed At Rest Pain Present Pain Present Pain Reported Location r knee Scale Used highly irritable pain with all movement Pain Behaviors Facial Grimacing,Guarding, Moaning,Wincing Pain Management Techniques Apply Cold,Distraction, Modification of Treatment,Re- positioning,Timing of Activity with Medications M4 PT-IP Mobility and Gait Start: 08/21/21 12:28 Freq: NEEDED Status: Active Protocol: Document 08/23/21 12:24 AW (Rec: 08/23/21 12:38 AW [id number]) PT-Bed Mobility Assessment Supine to Sit Supine to Sit Maximum Assistance,1 Person Assistance,Head of Bed Elevated,Bedrails Scooting Scooting to Edge of Bed Maximum Assistance,Dependent PT-Transfer Assessment Sit to and From Stand Sit to and from Stand Maximum Assistance,2 Person Assistance,Use of Upper Extremities Equipment Orthotic/Prosthetic Devices or Brace: No Transfers Transfer Destination Chair Transfer Technique Stand Step Pivot Transfer Ability Level of Assist Maximum Assistance,2 Person Assistance,Use of Upper Extremities Comments Mobility Comments Pt was sitting up in bed as PT arrived. She agreed to sit up EOB max A x 1. Max A x 2 to stand and step pivot transfer to chair set up on her right side. In sitting, pt was unable to reposition herself and required max A x 2 to scoot back. Pt was left with lunch tray in front of her. Gait Assessment Gait Gait Assistance Required: Maximum Assistance,2 Person Assist Distance (Feet) 3 Able to Maintain Weight Bearing Status Yes During Gait Assistive Devices Assistive Device Gait Belt,Front Wheeled Walker Orthotic/Prosthetic Devices or Brace: No Gait Deviations General Gait Pattern Antalgic,Decreased Stride Length,Decreased Feet Clearance,Step-to Gait Factors Limiting Gait Function Factors Limiting Gait Function Decreased Activity Tolerance, Decreased Strength,Difficulty Following Directions,Limited Range of Motion,Pain,Poor Balance,Poor Safety Awareness Comments Gait Comments Steps taken during transfer only. Pt was able to shift weight minimally in response to cues. M5 PT-IP Objective Assessments Start: 08/21/21 12:28 Freq: NEEDED Status: Active Protocol: Document 08/21/21 09:15 AB (Rec: 08/21/21 12:43 AB [email or web address]) Orientation Orientation/Cognition Level of Alertness Alert Orientation Name Language Function Ability Mongolian as Second Language Safety Awareness Decreased Safety Awareness Memory Description Short Term Impaired Gross Range of Motion Lower Extremity ROM Assessment Right Impaired Impairments R knee flexion: ~ 40 deg R knee extension: ~ 20 deg less to 0 Strength Comments Strength Comments RLE: 3-/5 LLE: 4-/5 Coordination Assessment Gross Coordination Gross Coordination WNL Muscle Tone Muscle Tone WNL Yes M6 PT-IP Treatment Start: 08/21/21 12:28 Freq: NEEDED Status: Active Protocol: Document 08/23/21 12:24 AW (Rec: 08/23/21 12:38 AW [id number]) Physical Therapy Treatment Exercises Exercises Ankle Pumps,Heel Slides, Passive Knee Extension Hang Knee ROM Measurement ~10-85 Education Education Provided Safety Other Treatments Other Treatment Performed STM distal hamstrings, passive extension and PROM prior to mobility. M7 PT-IP Assessment and Plan Start: 08/21/21 12:28 Freq: NEEDED Status: Active Protocol: Document 08/23/21 12:24 AW (Rec: 08/23/21 12:38 AW [id number]) PT Summary Assessment and Plan Potential Rehabilitation Potential Fair Summary Impairments Pain,ROM,Strength,Balance, Coordination,Sensation,Tone, Cognition,Bed Mobility, Transfers,Gait,Activity Tolerance Progress Towards Goals Slow Progress due to Pain,Slow Progress due to Activity Tolerance Assessment Summary Pt remained groggy but did increase in alertness as she mobilized. She was able to transfer to the chair max A x 2 with slightly improved weightshifting but needed near total assist to manage the walker. Pt will need SNF rehab to improve strength and mobility. Goals Bed Mobility Goal Standby Assistance Transfer Goal Standby Assistance,Front Wheeled Walker Gait Goal Standby Assistance,Front Wheel Walker Gait Distance 100 Other Goals improve ambulation using FWW/ 4 WW 150 ft SBA Days to Meet Goals 10 Frequency of Treatment Frequency Of Treatment Twice a Day Treatment Plan Physical Therapy Treatment Plan Bed Mobility Training,Transfer Training,Gait Training, Therapeutic Exercise,Balance Retraining,Post Op Education, Discharge Planning,Hot or Cold Pack,Neuromuscular Re-ed, Coordination Retraining,Manual Therapy Weight Bearing Status Weight Bearing Status Weight Bear as Tolerated Allowed Weight Bearing Amount (enter % RLE WBAT or #) (%) Recommendations To Nursing Amount of Assist Needed 2 Person Assist Discharge Recommendations PT Discharge Recommendations SNF Rehab Transportation Needs at Discharge Wheelchair/Cabulance
[2021-08-23] MEDS: NIFEdipine 30 MG TAB ER 60 MG PO (21:01)
[2021-08-23] MEDS: DOXAZOSIN 4 MG TABLET 8 MG PO (21:02)
[2021-08-23] MEDS: ATORVASTATIN 20 MG TABLET 10 MG PO (21:02)
[2021-08-23] MEDS: INSULIN GLARGINE 100 UNIT/ML 3ML PEN 14 UNIT SUBCUT (21:04)
[2021-08-24] MEDS: OXYCODONE IR 10 MG TABLET PO ×3 (01:31→10:12)
[2021-08-24 05:15] VITALS: BP 154/46; PULSE 58; RESP 16; TEMP 37.1; O2SAT 97
[2021-08-24 07:00] VITALS: BP 151/51; PULSE 60; RESP 17; TEMP 36.9; O2SAT 93
--- NOTE | 2021-08-24 07:39 | PM.DS.1 ---
History of Present Illness History of Present Illness Date Patient Seen: 08/24/21 Time Patient Seen: 07:39 Chief complaint: OPB Narrative: Operative Date/Time/Diagnoses Date of procedure: 08/20/21 Time of procedure: 14:45 Pre-op diagnosis: right knee OA Post-op diagnosis: same Procedure & Clinicians Procedure: Right total knee arthroplasty Same procedure as scheduled: Yes Indications: The patient has had progressively worsening right knee pain with radiographic changes consistent with arthritis. Non-operative management has failed and the patient has requested total knee replacement. The risks, benefits and alternatives to surgery were discussed with the patient prior to proceeding. Risks discussed included, but were not limited to, failure to relieve pain, stiffness, infection, nerve damage, deep venous thrombosis, pulmonary embolism, stroke, coma, heart attack, permanent paralysis and , as well as the potential need for eventual revision of the prosthetic. Surgeon: Mahogany Stout Mill Order Scheduler: Radha Levin Anesthesia Type: General Operative Notes Findings: Severe right knee osteoarthritis especially in the lateral compartment, soft tibia Closure Type: primary Specimen(s): none sent Prosthetic devices, grafts, tissues, transplants, or devices: Stout and Nephjose carlos Zhang BCS 2 size 2 femur, size 2 tibia, 32 x 7.5 mm patella round, +10 poly Applied: drain(s) Estimated Blood Loss (mL): 250 Blood products transfused: none Tourniquet time (min): 75 Discharge Providers Provider Date of admission: 08/20/21 18:46 Discharge Date: 08/24/21 Primary care physician: Migel Ambrose MD Consults: 08/13/21 14:18 Consult to Anesthesiology Routine Comment: Consulting Provider: Anesthesiologist Reason for consultation: PAC annamaria re: New onset Afib 08/20/21 06:00 Consult to Anesthesiology Routine Comment: Consulting Provider: Anesthesiologist Reason for consultation: Regional block for post operative pain control 08/20/21 18:46 Consult to Discharge Planning Routine Comment: needs ECF Consult to Physical Therapy Evaluate & Treat Comment: Physician Instructions: postop TKA protocol Consult to Respiratory Therapy Evaluate & Treat Comment: Physician Instructions: Evaluate and treat 08/21/21 03:13 Consult to Dietitian, Adult Routine Comment: Reason For Exam: low cris 08/21/21 09:36 Consult to Hospitalist Service Routine Comment: Consulting Provider: Mahogany Stout Reason for consultation: mulitple chronic medical problems Has provider been notified: Yes Discharge provider: Radha Levin PA-C Summary Hospital Course Discharge Diagnosis: 1) s/p RIGHT total knee arthroplasty 2) Acute on chronic anemia, acute anemia d/t expected surgical blood loss, chronic anemia of unspecified origin 3) UTI, present on admission 4) Chronic renal failure Hospital Course: Ms Marley'shannon hospital course was significant for difficulty with pain control. She cannot have anti-inflammatories due to renal failure. She had a UTI present on admission and was treated with IV Rocephin while in the hospital and transitioned to cephalexin PO for discharge. On POD# 4 she was still having problems with pain control and had not made significant progress with PT; following her left TKA she went to SNF for 3 months, and it was felt she would need SNF following this hospital stay as well. She was eating and voiding without difficulty. Exam Vital Signs (past 8 hours): - 08/24/21 05:15 Temperature 98.7 F Pulse Rate 58 L Respiratory Rate 16 Blood Pressure 154/46 H Pulse Oximetry 97 Oxygen Delivery Method Room Air Oxygen Flow Rate 0 Narrative Exam Narrative: Makes little effort on RLE movement due to pain. 5/5 DF, PF, EHL. No unusual redness or swelling about knee. Aquacel dressing with two areas of bloody drainage, otherwise intact. Calves soft, compressible, nontender and without palpable cords or masses. Const General: cooperative and healthy appearing Orientation: alert, awake, oriented to person and oriented to place Objective Labs Result Diagrams: 08/22/21 12:30 08/22/21 12:30 [facility] Medical History (Updated 08/21/21 @ 09:49 by Radha Levin PA-C) Anemia Anxiety Atypical chest pain Cataracts, bilateral CKD (chronic kidney disease), stage IV Congestive heart failure CVA (cerebral vascular accident) Diabetes Diabetic macular edema Diabetic neuropathy Diabetic retinopathy Diastolic dysfunction Edema Essential thrombocythemia Essential thrombocytosis Gait disorder GERD (gastroesophageal reflux disease) Glaucoma HTN (hypertension) Hypercholesterolemia Hyponatremia Insomnia Left ventricular hypertrophy Major depressive disorder Osteoarthritis Pain Pseudophakia of left eye Vitreous hemorrhage of right eye Surgical History (Updated 08/21/21 @ 09:43 by Radha Levin PA-C) History of arthroplasty of left knee (04/01/20) Social History household members: none Smoking Status: Former smoker alcohol intake: never Discharge Assessment & Plan Assessment and Plan Assessment: 1) s/p RIGHT total knee arthroplasty 2) Acute on chronic anemia, acute anemia d/t expected surgical blood loss, chronic anemia of unspecified origin 3) UTI, present on admission 4) Chronic renal failure Plan of Treatment: 1) SNF rehab, Plavix for VTE prophylaxis, follow up in office in 10-14 days as scheduled 2) No intervention needed at this time 3) Cephalexin 500 mg BID x 7 days Discharge Plan Discharge Plan Patient Disposition: [facility] Transfer to: [facility] Discharge orders & Medications Prescriptions: New hydroxyzine pamoate 25 mg Capsule 25 mg PO Q4HR PRN (Reason: Muscle Spasm) Qty: 120 2RF oxycodone 5 mg Tablet 5 mg PO Q3HR PRN (Reason: pain, severe) Qty: 60 0RF Rx Instructions: 1-2 tabs (5-10 mg) q 3 hr tramadol 50 mg Tablet 50 mg PO QID PRN (Reason: Pain, Moderate (4-6)) Qty: 120 0RF cephalexin 500 mg capsule 500 mg PO BID Qty: 14 0RF Continued clopidogrel 75 mg Tablet 75 mg PO DAILY 0RF acetaminophen 325 mg Tablet 650 mg PO TID Qty: 40 0RF docusate sodium [DOK] 100 mg Capsule 100 mg PO BID Qty: 60 0RF losartan 50 mg Tablet 50 mg PO BID 0RF buspirone 5 mg Tablet 5 mg PO TID 0RF hydralazine 10 mg Tablet 10 mg PO TID 0RF carvedilol 25 mg Tablet 25 mg PO BID 0RF Rx Instructions: must administer with a meal/food anagrelide 0.5 mg Capsule 0.5 mg PO BID 0RF nifedipine 60 mg PO BEDTIME 0RF alprazolam 0.25 mg Tablet 0.25 mg PO BID PRN (Reason: Anxiety) Qty: 40 0RF isosorbide mononitrate 30 mg Tablet Extended Release 24 Hr 30 mg PO DAILY 0RF sertraline 100 mg Tablet 50 mg PO DAILY 0RF prednisone 5 mg Tablet 5 mg PO DAILY 0RF lidocaine 4 % Cream 1 applic TOPICAL QID 0RF simvastatin 20 mg Tablet 20 mg PO BEDTIME 0RF doxazosin 4 mg Tablet 8 mg PO DAILY 0RF Rx Instructions: Takes in the evening furosemide 20 mg Tablet 20 mg PO BID 0RF albuterol sulfate 90 mcg/actuation Hfa Aerosol Inhaler 1 inh INHALATION QID PRN (Reason: Shortness Of Breath) 0RF multivitamin Capsule 1 cap PO DAILY 0RF docusate sodium 100 mg Tablet 100 mg PO DAILY PRN (Reason: Constipation) 0RF insulin aspart U-100 [Novolog Flexpen U-100 Insulin] 100 unit/mL (3 mL) Insulin Pen 6 unit SUBCUT BID 0RF Rx Instructions: Inject daily before noon and evening meals Lantus Solostar U-100 Insulin 100 unit/mL (3 mL) Insulin Pen 14 unit SUBCUT DAILY 0RF magnesium oxide 400 mg magnesium Capsule 800 mg PO DAILY 0RF Follow up/Referrals: Migel Ambrose MD [Primary Care Provider] - Mahogany Stout MD [Physician] - As previously scheduled (Follow up with Dr Stout on 09/02/2021 @ 2:30 pm at [facility]) Diet/Activity/Treatments Diet: Carb-consistent/Diabetic Food texture: Regular Activity: Walk frequently! Weight bearing as tolerated to RLE. Cold/Heat Therapy: Ice to knee as needed for pain. Skin/Wound/Dressing Care Report to your healthcare provider any signs of infection, such as:: chills, fever, night sweats, unusual drainage and unusual redness Dressing: May remove ROSEANN wrap and shower. Leave Aquacel dressing in place until follow up appointment in office. Call office if dressing becomes saturated inside. No bathing or otherwise soaking incision. [facility] Reason for rehabilitation: Post-operative therapy Rehab type: Physical therapy and Occupational therapy Visit Report/Discharge Packet Instructions: DI for Knee Replacement, DI for Prescription Opioid Use Stand Alone Forms: Surgery Discharge Discharge Data Primary Care Provider: Migel Ambrose
[2021-08-24 08:14] VITALS: BP 151/51; PULSE 60
[2021-08-24] MEDS: DOCUSATE 100 MG CAPSULE PO (08:14)
[2021-08-24] MEDS: carvediloL 12.5 MG TABLET 25 MG PO (08:14)
[2021-08-24] MEDS: CLOPIDOGREL 75 MG TABLET PO (08:14)
[2021-08-24] MEDS: BUSPIRONE 5 MG TABLET PO (08:14)
[2021-08-24] MEDS: ACETAMINOPHEN 325 MG TABLET 650 MG PO (08:14)
[2021-08-24 08:15] VITALS: BP 151/51
[2021-08-24] MEDS: predniSONE 5 MG TABLET PO (08:15)
[2021-08-24] MEDS: MAGNESIUM OXIDE 400 MG TABLET 800 MG PO (08:15)
[2021-08-24] MEDS: HYDRALAZINE 10 MG TABLET PO (08:15)
[2021-08-24] MEDS: FUROSEMIDE 20 MG TABLET PO (08:15)
[2021-08-24] MEDS: MULTIVITAMIN 1 TABLET 1 TAB PO (08:15)
[2021-08-24] MEDS: LOSARTAN 50 MG TABLET PO (08:15)
[2021-08-24] MEDS: ISOSORBIDE MONONITRATE ER 30 MG TABLET PO (08:15)
[2021-08-24] MEDS: SERTRALINE 50 MG TABLET PO (08:15)
[2021-08-24] MEDS: TRAMADOL 50 MG TABLET PO ×2 (08:16→11:40)
[2021-08-24] MEDS: SODIUM CHLORIDE 0.9% FLUSH 10 ML IV (08:16)
[2021-08-24 08:51] LABS: COVID19 -Nasal RAPID Negative (Negative)
--- NOTE | 2021-08-24 09:10 | CM.DPC ---
DCP Discharge SNF Per Ortho PA, pt is medically stable to d/c to SNF today and no identified barriers to discharge. JONA called [facility] admissions and confirmed they can accept pt at 1300 today and provided RN report number and JONA updated RN who kindly obtained updated POOL zuniga. JONA faxed d/c summ,PASRR, signed med rec, scripts, POOL zuniga MD orders to [facility] to review. Pt was sleeping soundly so RN will update on time of transport today. JONA called [facility] who also willing to accept pt and [place] [facility] [place] not needed for [place]. 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 Plan: Patient to d/c to [facility] today at 1300 before safe return home to [facility]. ELIZABET Christie
--- NOTE | 2021-08-24 09:54 | PT.IPTN ---
Current Diagnoses Anemia, unspecified (08/20/21) Type 2 diabetes mellitus without complications (08/20/21) Essential (primary) hypertension (08/20/21) Heart failure, unspecified (08/20/21) Unilateral primary osteoarthritis, right knee (08/20/21) Chronic kidney disease, stage 4 (severe) (08/20/21) Urinary tract infection, site not specified (08/20/21) Presence of right artificial knee joint (08/20/21) Surgery Performed Operation Date: 08/20/21 14:15 Actual Procedures p Total Knee Arthroplasty(Right) - Mahogany Stout MD Physical Therapy Treatment Note M2 PT-IP Current Condition Start: 08/21/21 12:28 Freq: NEEDED Status: Active Protocol: Document 08/24/21 09:20 SP (Rec: 08/24/21 10:28 SP [id number]) Physical Therapy Current Condition Current Condition Evaluation Date 08/21/21 Treatment Diagnosis s/p R TKA; difficulty in walking Onset Date 08/20/21 M3 PT-IP Subjective Start: 08/21/21 12:28 Freq: NEEDED Status: Active Protocol: Document 08/24/21 09:20 SP (Rec: 08/24/21 10:28 SP [id number]) Subjective Physical Therapy Visit Type Type Treatment Note Visit Start Time 09:20 Visit Stop Time 09:54 Total Visit Minutes 34 Notes Vitals takend during tx: supine: BP 126/43 HR 66 SaO2 94% on RA seated in chair post mobility : BP 118/41 HR 87 SaO2 92% on RA Nurse assisted as 2nd person during transfer. Number of CHIEF MARKETING OFFICER Visits 1 Physical Therapy Visit Comments Patient Comments Pt stated I am very sleepy but I want to do all that I can to get better. Patient Goals Go to nursing facility to stronger. Therapy Pain Assessment Pain When Pain Assessed At Rest Pain Present Pain Present Pain Reported Location r knee Intensity 8 Scale Used at rest, more but not quantified with mobility Pain Behaviors Facial Grimacing,Guarding, Moaning,Wincing Pain Management Techniques Apply Cold,Distraction, Modification of Treatment,Re- positioning,Timing of Activity with Medications M4 PT-IP Mobility and Gait Start: 08/21/21 12:28 Freq: NEEDED Status: Active Protocol: Document 08/24/21 09:20 SP (Rec: 05/02/22 10:28 SP [id number]) PT-Bed Mobility Assessment Supine to Sit Supine to Sit Maximum Assistance,1 Person Assistance,Head of Bed Elevated,Bedrails Sit to Supine Sit to Supine Maximum Assistance,2 Person Assistance Scooting Scooting to Edge of Bed Maximum Assistance PT-Transfer Assessment Sit to and From Stand Sit to and from Stand Moderate Assistance,Maximum Assistance,2 Person Assistance ,Use of Upper Extremities Equipment Transfer Assistive Device Gait Belt,Front Wheeled Walker Orthotic/Prosthetic Devices or Brace: No Transfers Transfer Destination Chair Transfer Technique Stand Step Pivot Transfer Ability Level of Assist Maximum Assistance,2 Person Assistance,Use of Upper Extremities Comments Mobility Comments Pt was elevated supine in bed when arrived. CHIEF MARKETING OFFICER removed pillow under R knee, ed for not having pillow under knee to support extension ROM. CHIEF MARKETING OFFICER instructed and provided assist for RLE post op exercises: AP AROM, quads set tapping quad fac, HS AAROM w/ ed strap on R foot Max A, passive knee hang . Completed supine> sit Max A x1 with R bed rail and pull from therapist hand for trunk righting after Mod A for RLE to EOB. Scoot Max Ax1 and Mod A 2nd person as needed (x1) via transferpad. Pt declined need to use BSC. Sit>stand Mod - Max A x2, Max cuse for LLE back under her and straighting RLE with improved WB throughout mobility. Stand stand step pivot transfer to R bed>chair w/ FWW Mod-Max A x2 w/ max cues for each LE and FWW sequencing w/ support repositioning required cued full back to chair and feel chair behind knees. Stand>sit onto chair hand over hand reach for chair arms, Mod A x2 contact anterior knees to prevent buckling and assist wt shift back. Scoot back in chair Max A x2, dependent fully back. Pt had call light and all needs in reach, DONOR FLOOR TECHNICIAN provided cold pack to R knee and warming blanket when leaving. Gait Assessment Gait Gait Assistance Required: Maximum Assistance,2 Person Assist Distance (Feet) 3 Able to Maintain Weight Bearing Status Yes During Gait Assistive Devices Assistive Device Gait Belt,Front Wheeled Walker Orthotic/Prosthetic Devices or Brace: No Gait Deviations General Gait Pattern Antalgic,Decreased Stride Length,Decreased Feet Clearance,Step-to Gait Factors Limiting Gait Function Factors Limiting Gait Function Decreased Activity Tolerance, Decreased Strength,Limited Range of Motion,Pain,Poor Balance,Poor Safety Awareness Comments Gait Comments Steps taken during transfer only. Pt was able to shift weight minimally but added support required, good carryover sequencing BLE, response to cues with Mod assist for FWW. PT-Balance Assessment Sitting Balance and Reactions Static Sitting Balance Ability Fair Dynamic Sitting Balance Ability Poor Standing Balance and Reactions Static Standing Balance Ability Poor Dynamic Standing Balance Ability Poor Device Used FWW M5 PT-IP Objective Assessments Start: 08/21/21 12:28 Freq: NEEDED Status: Active Protocol: Document 08/21/21 09:15 AB (Rec: 08/21/21 12:43 AB [id number]) Orientation Orientation/Cognition Level of Alertness Alert Orientation Name Language Function Ability Bur[place]ian as Second Language Safety Awareness Decreased Safety Awareness Memory Description Short Term Impaired Gross Range of Motion Lower Extremity ROM Assessment Right Impaired Impairments R knee flexion: ~ 40 deg R knee extension: ~ 20 deg less to 0 Strength Comments Strength Comments RLE: 3-/5 LLE: 4-/5 Coordination Assessment Gross Coordination Gross Coordination WNL Muscle Tone Muscle Tone WNL Yes M6 PT-IP Treatment Start: 08/21/21 12:28 Freq: NEEDED Status: Active Protocol: Document 08/24/21 09:20 SP (Rec: 08/24/21 10:28 SP [id number]) Physical Therapy Treatment Exercises Exercises Ankle Pumps,Quad Sets,Heel Slides,Passive Knee Extension Hang Knee ROM Measurement ~7-70 deg Education Education Provided Safety Other Treatments Other Treatment Performed Passive extension and PROM prior to mobility. Education of not having pillow under R knee support extension for standing stability. M7 PT-IP Assessment and Plan Start: 08/21/21 12:28 Freq: NEEDED Status: Active Protocol: Document 08/24/21 09:20 SP (Rec: 08/24/21 10:28 SP [id number]) PT Summary Assessment and Plan Potential Rehabilitation Potential Fair Status of Condition at Evaluation Evolving Summary Impairments Pain,ROM,Strength,Balance, Coordination,Sensation,Tone, Cognition,Bed Mobility, Transfers,Gait,Activity Tolerance Progress Towards Goals Slow Progress due to Pain,Slow Progress due to Activity Tolerance Assessment Summary Pt very pleasant dispite pain, remained groggy/ sleep but improved with mobility. Max A x1-2 bed mob, Mod-Max A transfer bed> chair w/ FWW max cues for sequencing and assist. Max A x2 scoot back in chair. Pt improved wt shift and WB into RLE Mod-Max A for FWW mgt. Pt will need SNF rehab to improve strength and mobility. Goals Bed Mobility Goal Standby Assistance Transfer Goal Standby Assistance,Front Wheeled Walker Gait Goal Standby Assistance,Front Wheel Walker Gait Distance 100 Other Goals improve ambulation using FWW/ 4 WW 150 ft SBA Days to Meet Goals 10 Frequency of Treatment Frequency Of Treatment Twice a Day Treatment Plan Physical Therapy Treatment Plan Bed Mobility Training,Transfer Training,Gait Training, Therapeutic Exercise,Balance Retraining,Post Op Education, Discharge Planning,Hot or Cold Pack,Neuromuscular Re-ed, Coordination Retraining,Manual Therapy Other Recommendations and Next Treatment bed mob, transfers, gait if Focus able using FWW. Weight Bearing Status Weight Bearing Status Weight Bear as Tolerated Allowed Weight Bearing Amount (enter % RLE WBAT or #) (%) Recommendations To Nursing Amount of Assist Needed 2 Person Assist Discharge Recommendations PT Discharge Recommendations SNF Rehab Transportation Needs at Discharge Wheelchair/Cabulance
[2021-08-24] MEDS: polyethylene glycoL 3350 17 GM POWD.PACK PO (10:12)
[2021-08-24] MEDS: cefTRIAXone 1,000 MG in SODIUM CHLORIDE 0.9% 100 ML 200 ML IV (10:12)
[2021-08-24] MEDS: hydrOXYzine pamoate 25 MG CAPSULE PO (11:40)
--- NOTE | 2021-08-24 13:27 | PC.NURSE ---
Discharge Note Patient A&O, VSS, RA, pain controlled with current medication regimen, no other complaints. Patient agreeable to discharge plan to rehab facility, all questions/concerns addressed. PIV discontinued. Patient 2 person assisted to wheelchair with FWW. All belongings packed and given to patient. Patient taken down via wheelchair accompanied by facility staff.
== END 2021-08-24 13:15 | DRG 470 ==
LOC: OR 08-21 13:51 → AC 08-21 13:51
PROVIDERS: Physician Assistant; Admitting Provider Orthopaedic Surgery; PCP Internal Medicine; Referring Provider Orthopaedic Surgery; Visit Provider Orthopaedic Surgery
PROC: 0SRC0JZ Replacement of Right Knee Joint with Synthetic Substitute, Open Approach (ICD-10-PCS; CPT 27447; principal; 2021-08-20 14:15)
DX: M17.11 Unilateral primary osteoarthritis, right knee (principal); N18.4 Chronic kidney disease, stage 4 (severe); N39.0 Urinary tract infection, site not specified; E78.5 Hyperlipidemia, unspecified; G89.18 Other acute postprocedural pain; I48.91 Unspecified atrial fibrillation; F41.9 Anxiety disorder, unspecified; E11.22 Type 2 diabetes mellitus with diabetic chronic kidney disease; I12.9 Hypertensive chronic kidney disease with stage 1 through stage 4 chronic kidney disease, or unspecified chronic kidney disease; Z79.4 Long term (current) use of insulin; Z86.73 Personal history of transient ischemic attack (TIA), and cerebral infarction without residual deficits; Z87.891 Personal history of nicotine dependence; Z20.822 Contact with and (suspected) exposure to COVID-19; Z79.01 Long term (current) use of anticoagulants
CPT/HCPCS: 36415; 64450; 73560; 80053; 82962; 85025; 85027; 87086; 87635; 97110; 97116; 97162; 97530; C1776; C9803; C1713; C9290; J0171; J0360; J0690; J0696; J1170; J1815; J2250; J2704; J3010; J3410

== ENCOUNTER → 2021-09-07 10:19 | Outpatient (ROUT) | payer SELFPAY ==
[2021-08-20 12:39] VITALS: BMI 28.3
[2021-09-07 10:50] LABS: Sodium Urine Random 21 mmol/L (30-90)
== END ==
PROVIDERS: PCP Internal Medicine; Visit Provider Emergency Medicine
DX: E87.8 Other disorders of electrolyte and fluid balance, not elsewhere classified (principal)
CPT/HCPCS: 84300

== ENCOUNTER 2021-12-11 13:58 | Inpatient (IN) | payer MEDICARE, OTHER, SELFPAY ==
[2021-08-20 12:39] VITALS: BMI 28.3
[2021-12-11] VITALS (17 sets, daily range): BP systolic 121–137; BP diastolic 71–96; PULSE 69–98; RESP 16–29; TEMP 35.6–36.6; O2SAT 96–100; BMI 27.0
--- NOTE | 2021-12-11 14:07 | DI.RAD.S_ITS ---
PROCEDURE: XR CHEST 1V INDICATIONS: short of breath TECHNIQUE: One view of the chest was acquired. COMPARISON: None. FINDINGS: Surgical changes and devices: None. Lungs and pleura: There is pulmonary vascular congestion. Underlying bilateral perihilar and infrahilar infiltrates cannot be excluded. No pleural effusions or pneumothorax. Mediastinum: Mediastinal contours appear normal. Heart size is enlarged. Bones and chest wall: No suspicious bony lesions. Overlying soft tissues appear unremarkable. IMPRESSION: Finding likely represent CHF. Underlying bilateral perihilar and infrahilar infiltrates cannot be excluded. No pleural effusion or pneumothorax. Dictated by: De Will M.D. on 12/11/2021 at 15:18 Approved by: De Will M.D. on 12/11/2021 at 15:18
--- NOTE | 2021-12-11 14:58 | ED_ITS ---
HPI - SOB/Dyspnea General Chief Complaint: Shortness of Breath/Dyspnea Stated Complaint: SOB, Fluid Overload Time Seen by Provider: 12/11/21 14:04 Source: EMS Mode of arrival: EMS History of Present Illness HPI Narrative: Patient is a 76-year-old female history of DM II, paroxysmal atrial fibrillation thrombocytopenia, dementia presenting today from [facility] for increasing shortness of breath and CKD stage III. She does complain of shortness of breath she is slightly tachypneic. Sounds like this been ongoing for a couple of days. He has been seen at another facility multiple times. Attempting to get records. She denies any abdominal pain. On pot on further questioning she actually states that she did have some chest discomfort earlier today day she does not think it was yesterday. Related Data Home Medications Medication Instructions Recorded Confirmed albuterol sulfate 90 mcg/actuation 1 inh inhalation QID PRN Shortness 03/28/20 08/13/21 aerosol inhaler Of Breath docusate sodium 100 mg tablet 100 mg PO DAILY PRN Constipation 03/28/20 08/13/21 doxazosin 4 mg tablet 8 mg PO DAILY CHF 03/28/20 08/20/21 furosemide 20 mg tablet 20 mg PO BID 03/28/20 08/20/21 insulin aspart U-100 100 unit/mL 6 unit SUBCUT BID 03/28/20 08/13/21 (3 mL) subcutaneous pen (Novolog Flexpen U-100 Insulin aspart) insulin glargine 100 unit/mL (3 14 unit SUBCUT DAILY 03/28/20 08/20/21 mL) subcutaneous pen (Lantus Solostar U-100 Insulin) isosorbide mononitrate 30 mg 30 mg PO DAILY 03/28/20 08/20/21 tablet,extended release 24 hr lidocaine 4 % topical cream 1 applic topical QID 03/28/20 08/13/21 magnesium oxide 800 mg PO DAILY Leg cramps 03/28/20 08/13/21 multivitamin 1 cap PO DAILY 03/28/20 08/13/21 prednisone 5 mg tablet 5 mg PO DAILY Chronic Kidney 03/28/20 08/20/21 Disease sertraline 100 mg tablet 50 mg PO DAILY 03/28/20 08/20/21 simvastatin 20 mg tablet 20 mg PO BEDTIME 03/28/20 08/20/21 clopidogrel 75 mg tablet 75 mg PO DAILY 09/09/20 08/20/21 anagrelide 0.5 mg capsule 0.5 mg PO BID 08/20/21 08/20/21 buspirone 5 mg tablet 5 mg PO TID 08/20/21 08/20/21 carvedilol 25 mg tablet 25 mg PO BID 08/20/21 08/20/21 hydralazine 10 mg tablet 10 mg PO TID 08/20/21 08/20/21 losartan 50 mg tablet 50 mg PO BID 08/20/21 08/20/21 nifedipine 60 mg PO BEDTIME 08/20/21 08/20/21 Previous Rx's Medication Instructions Recorded acetaminophen 325 mg tablet 650 mg PO TID #40 tabs 09/19/20 docusate sodium 100 mg capsule 100 mg PO BID #60 caps 09/19/20 (DOK) alprazolam 0.25 mg tablet 0.25 mg PO BID PRN Anxiety #40 tabs 08/24/21 cephalexin 500 mg capsule 500 mg PO BID #14 caps 08/24/21 hydroxyzine pamoate 25 mg capsule 25 mg PO Q4HR PRN Muscle Spasm 08/24/21 #120 caps oxycodone 5 mg tablet 5 mg PO Q3HR PRN pain, severe #60 08/24/21 tabs tramadol 50 mg tablet 50 mg PO QID PRN Pain, Moderate 08/24/21 (4-6) #120 tabs Allergies Allergy/AdvReac Type Severity Reaction Status Date / Time caffeine Allergy Mild Rash Verified 12/11/21 14:11 clonidine Allergy Mild Rash Verified 12/11/21 14:11 lansoprazole [From Prevacid] Allergy Mild Rash Verified 12/11/21 14:11 Penicillins Allergy Mild Rash Verified 12/11/21 14:11 spironolactone Allergy Mild Rash Verified 12/11/21 14:11 aspirin Allergy Reaction Verified 12/11/21 14:11 not listed egg AdvReac Nausea Verified 12/11/21 14:11 milk AdvReac Cramp Verified 12/11/21 14:11 Review of Systems Review of Systems Narrative: See HPI Patient History Medical History Anemia Anxiety Atypical chest pain Cataracts, bilateral CKD (chronic kidney disease), stage IV Congestive heart failure CVA (cerebral vascular accident) Diabetes Diabetic macular edema Diabetic neuropathy Diabetic retinopathy Diastolic dysfunction Edema Essential thrombocythemia Essential thrombocytosis Gait disorder GERD (gastroesophageal reflux disease) Glaucoma HTN (hypertension) Hypercholesterolemia Hyponatremia Insomnia Left ventricular hypertrophy Major depressive disorder Osteoarthritis Pain Pseudophakia of left eye Vitreous hemorrhage of right eye Surgical History History of arthroplasty of left knee (04/01/20) Social History household members: none Smoking Status: Former smoker alcohol intake: never Smoking Status: Former smoker Substance Use Type: does not use Exam Initial Vital Signs Initial Vital Signs: Vital Signs Temperature 98 F 12/11/21 14:02 Pulse Rate 75 12/11/21 14:02 Respiratory Rate 16 12/11/21 14:02 Blood Pressure 136/96 H 12/11/21 14:02 Pulse Oximetry 98 12/11/21 14:02 Oxygen Delivery Method 12/11/21 14:02 GENERAL: Alert slightly confused 76-year-old female able to follow some commands and answer some questions HEENT: Head atraumatic,EOMI, pupils reactive, face symmetric, moist mucous membranes CARDIOVASCULAR: Regular rate and rhythm without murmurs, rubs or gallops. RESPIRATORY: Breath sounds equal bilaterally, no wheezes rales or rhonchi. ABDOMEN: Soft, nontender. Normoactive bowel sounds all 4 quadrants. No g uarding or rebound. RECTAL: Guaiac negative : No CVA tenderness EXTREMITIES: Normal range of motion, no clubbing or edema. Neurovascularly intact NEUROLOGICAL: Alert and oriented x4.Normal gait and speech. SKIN: Warm, dry, no laceration, no petechiae, no rashes or lesions. Course Orders Ordered: ED Orders 12/11/21 14:07 XR chest 1V Stat EKG-12 Lead Stat 12/11/21 15:05 UA Complete [Urinalysis and Microscopic] Stat 12/11/21 15:20 Complete Blood Count AUTO DIFF Stat Comprehensive Metabolic Panel Stat Lipase Stat NT-proBNP (BNP-Adult 18+) Stat Troponin & CK Cardiac Panel Stat 12/11/21 15:30 Procalcitonin Stat Type and Screen Stat 12/11/21 15:34 COVID19 -Nasal RAPID/Pre-Proc Stat Heparin Sodium/Dextrose (Heparin Drip) 25,000 unit in 500 mls @ 14.587 mls/hr IV CONT JOSE MIGUEL; Protocol Last Admin: 12/11/21 17:13 Dose: 12 units/kg/hr, 14.587 mls/hr Documented By: ANKUSH Discontinued Medications Furosemide (Furosemide 40 Mg/4 Ml Vial) 20 mg IV NOW ONE Stop: 12/11/21 17:15 Last Admin: 12/11/21 17:26 Dose: Not Given Documented By: ANKUSH Furosemide (Furosemide 40 Mg/4 Ml Vial) 40 mg IV NOW ONE Stop: 12/11/21 17:19 Last Admin: 12/11/21 17:34 Dose: 40 mg Documented By: ANKUSH Heparin Sodium (Porcine) (Heparin 5,000 Unit/Ml Vial) 4,000 unit IV NOW ONE Stop: 12/11/21 17:00 Last Admin: 12/11/21 17:13 Dose: 4,000 unit Documented By: ANKUSH Vital Signs Vital signs: Vital Signs - 8 hr 12/11/21 14:02 12/11/21 14:13 12/11/21 14:30 Temperature 98 F Pulse Rate 75 75 78 Respiratory Rate 16 29 H 26 H Blood Pressure 136/96 H Pulse Oximetry 98 98 98 Oxygen Delivery Method Room Air Room Air 12/11/21 15:00 12/11/21 15:30 12/11/21 16:00 Temperature Pulse Rate 76 71 73 Respiratory Rate 23 20 18 Blood Pressure Pulse Oximetry Oxygen Delivery Method 12/11/21 16:30 12/11/21 17:00 Temperature Pulse Rate 79 69 Respiratory Rate 20 17 Blood Pressure Pulse Oximetry Oxygen Delivery Method MDM - SOB/Dyspnea Lab Data Result diagrams: 12/11/21 15:20 12/11/21 15:20 Labs: Lab Results 12/11/21 12/11/21 12/11/21 Range/Units 15:20 15:20 15:30 WBC 12.0 H (4.5-11.0) X10^3/uL RBC 3.18 L (4.0-5.2) X10^6/uL Hgb 9.0 L (12.0-16.0) g/dL Hct 27.7 L (36-46) % MCV 87.0 (80-100) fL MCH 28.3 (26-34) PG MCHC 32.5 (30-36) % RDW 16.5 H (11.6-14.8) % Plt Count 609 H (150-400) X10^3/uL Neut % (Auto) 82.7 H (50-75) % Lymph % (Auto) 10.5 L (25-40) % Tompkins % (Auto) 6.3 (3-14) % Eos % (Auto) 0.1 L (2-4) % Baso % (Auto) 0.4 (0-2) % Neut # (Auto) 05736 H (2289-0469) /uL Lymph # (Auto) 1300 (9296-2391) /uL Tompkins # (Auto) 800 (0-900) /uL Eos # (Auto) 0 (0-450) /uL Baso # (Auto) 0 (0-100) /uL Sodium 134 L (137-145) mmol/L Potassium 5.0 (3.4-5.1) mmol/L Chloride 102 (98-107) mmol/L Carbon Dioxide 22 (22-32) mmol/L BUN 18 H (7-17) mg/dL Creatinine 2.18 H (0.52-1.04) mg/dL Estimated GFR 23 L (>60) mL/min BUN/Creatinine Ratio 8.3 (6-22) Glucose 173 H (80-110) mg/dL Calcium 8.8 (8.4-10.2) mg/dL Total Bilirubin 0.4 (0.2-1.3) mg/dL AST 65 H (14-36) IU/L ALT 22 (<35) IU/L Alkaline Phosphatase 92 (38-126) U/L Total Creatine Kinase 104 (30-135) U/L CK-MB (CK-2) 7.99 H (<2.37) ng/mL CK-MB (CK-2) Rel Index 7.7 H* (1.5-5.0) % Troponin I 5.780 H* (0.01-0.034) ng/mL NT-Pro-B Natriuret Pep 47025 H (<450) pg/mL Total Protein 6.4 (6.3-8.2) g/dL Albumin 3.8 (3.5-5.0) g/dL Globulin 2.6 (1.7-4.1) g/dL Albumin/Globulin Ratio 1.5 (1.0-2.8) Lipase 84 (23-300) U/L Procalcitonin 0.90 H (<0.5) ng/mL Blood Type Antibody Screen 12/11/21 Range/Units 15:30 WBC (4.5-11.0) X10^3/uL RBC (4.0-5.2) X10^6/uL Hgb (12.0-16.0) g/dL Hct (36-46) % MCV (80-100) fL MCH (26-34) PG MCHC (30-36) % RDW (11.6-14.8) % Plt Count (150-400) X10^3/uL Neut % (Auto) (50-75) % Lymph % (Auto) (25-40) % Tompkins % (Auto) (3-14) % Eos % (Auto) (2-4) % Baso % (Auto) (0-2) % Neut # (Auto) (7771-9137) /uL Lymph # (Auto) (7110-1157) /uL Tompkins # (Auto) (0-900) /uL Eos # (Auto) (0-450) /uL Baso # (Auto) (0-100) /uL Sodium (137-145) mmol/L Potassium (3.4-5.1) mmol/L Chloride (98-107) mmol/L Carbon Dioxide (22-32) mmol/L BUN (7-17) mg/dL Creatinine (0.52-1.04) mg/dL Estimated GFR (>60) mL/min BUN/Creatinine Ratio (6-22) Glucose (80-110) mg/dL Calcium (8.4-10.2) mg/dL Total Bilirubin (0.2-1.3) mg/dL AST (14-36) IU/L ALT (<35) IU/L Alkaline Phosphatase (38-126) U/L Total Creatine Kinase (30-135) U/L CK-MB (CK-2) (<2.37) ng/mL CK-MB (CK-2) Rel Index (1.5-5.0) % Troponin I (0.01-0.034) ng/mL NT-Pro-B Natriuret Pep (<450) pg/mL Total Protein (6.3-8.2) g/dL Albumin (3.5-5.0) g/dL Globulin (1.7-4.1) g/dL Albumin/Globulin Ratio (1.0-2.8) Lipase (23-300) U/L Procalcitonin (<0.5) ng/mL Blood Type B Positive Antibody Screen Negative Imaging Data Chest x-ray: Radiologist's Impression: MONIQUE Frost [id number] XRay Report Signed Patient: Marely Marley MR#: [id number] : 1945 Acct:[id number] Age/Sex: 76 / F Date of Service: 12/11/21 Loc: ED Accession Number: [id number] ?? Procedure: XR chest 1V Ordering Provider: Beth Link D.O. PROCEDURE:? XR CHEST 1V ? INDICATIONS:? short of breath ? TECHNIQUE:? One view of the chest was acquired.? ? COMPARISON:? None. ? FINDINGS:? ? Surgical changes and devices:? None.? ? Lungs and pleura:? There is pulmonary vascular congestion.? Underlying bilateral perihilar and infrahilar infiltrates cannot be excluded.? No pleural effusions or pneumothorax.? ? Mediastinum:? Mediastinal contours appear normal.? Heart size is enlarged.? ? Bones and chest wall:? No suspicious bony lesions.? Overlying soft tissues appear unremarkable.? ? IMPRESSION:? Finding likely represent CHF.? Underlying bilateral perihilar and infrahilar infiltrates cannot be excluded.? No pleural effusion or pneumothorax. ? ? Dictated by: De Will M.D. on 12/11/2021 at 15:18 ? ? Approved by: De Will M.D. on 12/11/2021 at 15:18? ECG Data Interpretation: Normal sinus rhythm rate 77 HI interval 208 QRS 60 QTC 495 \low voltage T-wave inversion noted in leads 3, V5,V6 which is new from previous EKG in 08/13/[address] elevation MDM Narrative Medical decision making narrative: Patient is mildly tachypneic but not requiring oxygen. She is able to follow commands and answer some questions. Troponin returns back positive at 5.7 with a BNP elevation 90 touch. She has no known coronary artery disease. She noted to have elevation of procalcitonin of 0.9, I do not quite have a source urinalysis pending. Heparin drip is started. It states that patient is allergic to aspirin this may remain out be related to her GI bleeding. Aspirin is held. She is mildly anemic but not as low as she was previously. She is not actively bleeding and Hemoccult was negative. 1640 Dr. Bansal, cardiology updated on patient's symptoms test results and medical history. At this time she states medical management only. Heparin drip for 48 hours and echocardiogram. Monitor for bleeding anemia. I have spoken at length with the daughter and the son who share DPOA. They have been updated on her symptoms. She has a POLST form which does confirm DNR status, and they confirmed as well. Dr. Finch hospitalist updated on patient's symptoms test results cardiology recommendation family and patient requested medical management He accepts at this time no need for antibiotic Discharge Plan Departure Patient Disposition: Admitted As Inpatient Clinical Impression: Non-ST elevation (NSTEMI) myocardial infarction Admit Date/Time: 12/11/21 17:20 Admit Provider: Chi Finch
[2021-12-11 15:46] LABS: Add Manual Diff / Slide Review NO; Basophils Absolute Auto 0 /uL (0-100); Basophils Percent Auto 0.4 % (0-2); Eosinophils Absolute Auto 0 /uL (0-450); Eosinophils Percent Auto 0.1 % (2-4); Hematocrit 27.7 % (36-46); Lymphocytes Absolute Auto 1300 /uL (1100-4500); Lymphocytes Percent Auto 10.5 % (25-40); Mean Corpuscular HGB Conc 32.5 % (30-36); Mean Corpuscular Hemoglobin 28.3 PG (26-34); Monocytes Absolute Auto 800 /uL (0-900); Monocytes Percent Auto 6.3 % (3-14); Neutrophils Absolute Auto 10000 /uL (1500-7000); Neutrophils Percent Auto 82.7 % (50-75); Platelet Count 609 X10^3/uL (150-400); Red Blood Cell Count 3.18 X10^6/uL (4.0-5.2); Red Cell Distribution Width 16.5 % (11.6-14.8)
[2021-12-11 16:00] LABS: Alanine Aminotransferase 22 IU/L (<35); Albumin 3.8 g/dL (3.5-5.0); Albumin Globulin Ratio 1.5 (1.0-2.8); Alkaline Phosphatase 92 U/L (38-126); Aspartate Aminotransferase 65 IU/L (14-36); BUN Creatinine Ratio 8.3 (6-22); Bilirubin Total 0.4 mg/dL (0.2-1.3); Blood Urea Nitrogen 18 mg/dL (7-17); Calcium 8.8 mg/dL (8.4-10.2); Carbon Dioxide 22 mmol/L (22-32); Chloride 102 mmol/L (98-107); Creatine Kinase 104 U/L (30-135); Estimated Glomerular Filt Rate 23 mL/min (>60); Globulin 2.6 g/dL (1.7-4.1); Glucose 173 mg/dL (80-110); HEMOLYSIS < 15 (0-50); Lipase 84 U/L (23-300); Sodium 134 mmol/L (137-145); Total Protein 6.4 g/dL (6.3-8.2)
[2021-12-11 16:25] LABS: NT-proBNP (BNP-Adult 18+) 90000 pg/mL (<450)
[2021-12-11 16:51] LABS: Creatine Kinase MB 7.99 ng/mL (<2.37)
[2021-12-11 16:52] LABS: CKMB % Relative Index 7.7 % (1.5-5.0)
[2021-12-11] MEDS: HEPARIN DRIP 25,000 UNIT/500 ML IV.SOLN 14.587 UNIT IV (17:13)
[2021-12-11] MEDS: HEPARIN 5,000 UNIT/ML VIAL 4000 UNIT IV (17:13)
[2021-12-11] MEDS: FUROSEMIDE 40 MG/4 ML VIAL IV (17:34)
[2021-12-11 18:11] LABS: Appearance Urine UA CLOUDY; Bilirubin Urine UA NEGATIVE (NEGATIVE); Color Urine UA YELLOW; Glucose Urine UA NEGATIVE (Negative); Ketones Urine UA NEGATIVE (NEGATIVE); Leukocyte Esterase Urine UA 1+ (NEGATIVE); Nitrite Urine UA NEGATIVE (Negative); Occult Blood Urine UA TRACE-LYSED (Negative); Protein Urine UA 3+ (Negative); Specific Gravity Urine UA 1.015 (1.000-1.035); Urobilinogen Urine UA 0.2 E.U./dL (0.2)
[2021-12-11 18:35] LABS: Amorphous Sediment Urine 2+; Bacteria Urine Occasional (0-1); RBC Urine None Seen (0-5/HPF); Renal Epithelial Cells Urine 0-1/HPF (0-1/HPF); Squamous Epithelial Cell Urine 1-5 /HPF (0-5/HPF); Transitional Epi Cells Urine 1-5/HPF (0-5/HPF); WBC Urine 10-30/HPF (0-5/HPF)
[2021-12-11 18:36] LABS: Culture Indicated Urine Specimen Cultured
--- NOTE | 2021-12-11 18:48 | DI.ECHO.S_ITS ---
[facility] +[facility]+ : : [address] : : : : [place] : : : : [id number] : : : : Phone: [phone] Echocardiogram Report + + :Name: KEHINDE SILVA Study Date: 12/12/2021 Height: 59 in : :[facility] ReadingLocation: Weight: 121 lb : : Gender: Female BSA: 1.5 m2 : :: 1945 Age: 76 yrs BP: 114/72 mmHg: :Reason For Study: NSTEMI : :Ordering Physician: BRIA, : :VERONIQUE PELLETIER Performed By: Miriam Cifuentes : :Referring: VERONIQUE FRASER : + + Interpretation Summary The left ventricle is normal in size. The ejection fraction is estimated to be 15-20%. Except basal LV segments which have preserved contractility and more towards hypercontractile side, rest of the LV segments are severely hypokinetic to akinetic with apical ballooning. This finding suggests likely stress-induced cardiomyopathy however multivessel coronary artery disease cannot be ruled out. MV E/A: 0.45 Med Peak E' Michael: 2.6 cm/sec E/E' med: 24.0 The right ventricle is normal size. Right ventricular systolic function is mildly reduced. From subcostal view, mid to distal portion of the RV appears to be hypokinetic. Hypercontractility of the basal RV segments. Predominantly posterior mitral annulus calcification which appears to be moderate to severe range and decrease mitral leaflet exertion. Anterior mitral leaflet has decreased excursion as well. Mean gradient about 2.8 mmHg. At least mild mitral stenosis. There is mild mitral regurgitation. Tricuspid leaflets are thickened. There is mild to moderate tricuspid regurgitation. The right ventricular systolic pressure is estimated to be at least 42 mmHg based on an estimated right atrial pressure of 15 mm Hg. There is mild luminal irregularity and echogenicity in the abdominal aorta, suggestive of aortic atherosclerotic disease. There is a moderate left-sided pleural effusion. There is a trivial to small loculated pericardial effusion anterior to the basal free RV wall and subcostal view. No obvious echocardiographic evidence of tamponade. Procedure: A two-dimensional transthoracic echocardiogram with color flow and Doppler was performed. The study quality was technically adequate. There is no prior echocardiogram noted for this patient. The heart rate ranged between 67-75 bpm during the study. The patient was in normal sinus rhythm during the exam. The patient had occasional PACs during the exam. Left Ventricle: Proximal septal thickening is noted. The estimated left ventricular end diastolic volume is 106 ml. The left ventricle is normal in size. There is no echo evidence for significant left ventricular outflow tract obstruction. There is no thrombus. The ejection fraction is estimated to be 15-20%. Except basal LV segments which have preserved contractility and more towards hypercontractile side, rest of the LV segments are severely hypokinetic to akinetic with apical ballooning. This finding suggests likely stress-induced cardiomyopathy however multivessel coronary artery disease cannot be ruled out. MV E/A: 0.45 Med Peak E' Michael: 2.6 cm/sec E/E' med: 24.0. Right Ventricle: The right ventricle is normal size. Right ventricular systolic function is mildly reduced. From subcostal view, mid to distal portion of the RV appears to be hypokinetic. Hypercontractility of the basal RV segments. Atria: The left atrium is moderately dilated. Right atrial size is normal. There is no Doppler evidence for an interatrial shunt. Mitral Valve: There is moderate to severe mitral annular calcification. The mitral valve leaflets are mildly calcified. Predominantly posterior mitral annulus calcification which appears to be moderate to severe range and decrease mitral leaflet exertion. Anterior mitral leaflet has decreased excursion as well. Mean gradient about 2.8 mmHg. At least mild mitral stenosis. The mitral valve mean gradient is 2.8 mmHg. There is mild mitral regurgitation. Aortic Valve: The aortic valve is not well visualized. There is trace aortic regurgitation. Tricuspid Valve: Tricuspid leaflets are thickened. There is mild to moderate tricuspid regurgitation. The right ventricular systolic pressure is estimated to be at least 42 mmHg based on an estimated right atrial pressure of 15 mm Hg. Pulmonic Valve: The pulmonic valve is not well visualized. Great Vessels: The aortic root is borderline dilated. The ascending aorta is normal in size. There is mild luminal irregularity and echogenicity in the abdominal aorta, suggestive of aortic atherosclerotic disease. Patient on bi- pap. The IVC is dilated (diameter is greater than 2.1 cm) and it collapses less than 50% with a sniff. This suggests a high right atrial pressure of 15 mm Hg. Pericardium/ Pleura There is a trivial to small loculated pericardial effusion anterior to the basal free RV wall and subcostal view. No obvious echocardiographic evidence of tamponade. There is a moderate left-sided pleural effusion. MMode/2D Measurements & Calculations LVIDd: 4.8 cm LVOT diam: 1.8 cm LVIDs: 4.4 cm Ao root diam: 3.8 cm FS: 9.2 % asc Aorta Diam: 3.3 cm EPSS: 1.4 cm IVSd: 1.0 cm LVPWd: 1.00 cm LV sim. diameter/BSA (cm/m^2): 3.2 LV sys. diameter/BSA (cm/m^2): 2.9 LA A2 area: 25.0 cm2 RA long axis: 4.8 cm LA A4 area: 19.8 cm2 RA area: 16.0 cm2 LA length (vol): 6.2 cm RA vol: 45.3 ml LA vol: 67.6 ml RA : 30.4 ml/m2 LA vol index: 45.4 ml/m2 IVC diam: 2.1 cm RVD1 (basal): 3.2 cm TAPSE: 1.4 cm Doppler Measurements & Calculations Ao V2 max: 95.3 cm/sec LVOT Max Michael: 64.8 cm/sec Ao V2 mean: 61.5 cm/sec LV V1 max P.7 mmHg Ao max P.6 mmHg LV V1 VTI: 12.5 cm Ao mean P.7 mmHg RAFIQ(I,D): 2.1 cm2 Ao V2 VTI: 15.6 cm RAFIQ(V,D): 1.8 cm2 sev ratio: 0.80 RAFIQ indexed to BSA (cm^2/m^2): 1.4 MV E max michael: 62.4 cm/sec TR max michael: 258.8 cm/sec MV A max michael: 138.7 cm/sec TR max P.8 mmHg MV E/A: 0.45 Med Peak E' Michael: 2.6 cm/sec E/E' med: 24.0 Lat Peak E' Michael: 7.6 cm/sec E/E' lat: 8.2 E/e' average: 16.1 MV dec time: 0.24 sec MVA(VTI): 1.0 cm2 MV V2 mean: 74.2 cm/sec SV(LVOT): 33.3 ml MV mean P.8 mmHg MV V2 VTI: 32.0 cm Reading Physician:12:21 PM
[2021-12-11 19:11] LABS: COVID19 -Nasal RAPID Negative (Negative)
[2021-12-11 20:03] LABS: Hemoglobin A1C% w Est Avg Glu 6.9 % (4.0-6.0)
[2021-12-11] MEDS: cefTRIAXone 1,000 MG in SODIUM CHLORIDE 0.9% 100 ML 200 MG IV (20:04)
[2021-12-11] MEDS: HEPARIN DRIP 25,000 UNIT/500 ML IV.SOLN 13.2 UNIT IV (20:10)
--- NOTE | 2021-12-11 20:33 | PM.HP.1 ---
History of Present Illness History of Present Illness Date Patient Seen: 12/11/21 Time Patient Seen: 20:34 Chief complaint: SOB, Fluid Overload Narrative: Marely Marley is a 76 yo female with paroxsysmal atrial fibrillation, thrombocythemia, insulin-dependent DM II (well-controlled, with A1c 6.9%), hypertension, CKD stage IV is a resident of [facility] in [place] with shortness of breath and generalized weakness. In her papers there was a request for her to be transferred to [facility] due to concerns for renal failure. Patient's main complaint is pain in her back and rear as well as pain in both of her feet. She also states that she is having shortness of breath and apparently when being roomed was needing to be placed on oxygen. Patient states that she and her moved to the area in 2013 and then he shortly after and that she only has adult children living in [place] and [place]. She states that they moved here from [place] back in . She states that she does not have anybody at this point to take care of her. She was living in a 2 bedroom apartment and it appears that she had a CVA, went to rehab and then went to [facility]. She is concerned about having her glasses, cellphone, and her hearing aids. She denies any nausea or fever the she did endorse having a cough and difficulty breathing for the past ?few days?. EKG was determined by the ED provider to have T-wave inversions in leads 3 V5 and V6 new from the 1st EKG that was done, patient's troponins were elevated and she was diagnosed with an NSTEMI. They consulted with Cardiology, the patient was not deemed to be eligible for cardiac catheterization and recommended admission with 48 hours of heparin drip. She also had a positive procalcitonin and elevated white count and was started on IV ceftriaxone for infection of unknown origin however it appears that she may have a mild UTI. Chest x-ray did not identify pneumonia but stated she had congestive heart failure. She is afebrile, blood pressure 137/71, heart rate 81, respiratory rate 16, at that time she was on room air, she weighs 55 kg with a BMI of 27. WBC is 12.0 hemoglobin is 9.0 hematocrit 27.7, platelet count 609, she has a left shift of 10,000, sodium 134, BUN 18, creatinine 2.18, with an EGFR of 23, glucose 173, hemoglobin A1c is 6.9, AST 65, her other liver enzymes are normal, troponin was 5.7, CK-MB [place] 7.7[place] [address], procalcitonin was 0.9, UA is equivocally positive for UTI and a culture will be sent, COVID-19 PCR is negative. FH: Per patient's daughter, patient's mother lived to be in her 90s and passed of old age, father in his 60s of a [place]. Patient History Medical History Anemia Anxiety Atypical chest pain Cataracts, bilateral CKD (chronic kidney disease), stage IV Congestive heart failure CVA (cerebral vascular accident) Diabetes Diabetic macular edema Diabetic neuropathy Diabetic retinopathy Diastolic dysfunction Edema Essential thrombocythemia Essential thrombocytosis Gait disorder GERD (gastroesophageal reflux disease) Glaucoma HTN (hypertension) Hypercholesterolemia Hyponatremia Insomnia Left ventricular hypertrophy Major depressive disorder Osteoarthritis Pain Pseudophakia of left eye Vitreous hemorrhage of right eye Surgical History History of arthroplasty of left knee (04/01/20) Family & Social History Social History: household members none Prior Living Arrangements Assisted Living Safety & Behavioral: Feels Safe in Current Yes Environment Been Physically Hurt or No Threatened By a Person Tobacco & Substance use: Smoking Status Former smoker alcohol intake never Substance Use Type does not use Meds Home Medications and Allergies Home Medications Medication Instructions Recorded Confirmed Type albuterol sulfate 90 mcg/actuation 1 inh inhalation QID PRN Shortness 03/28/20 12/11/21 History aerosol inhaler Of Breath docusate sodium 100 mg tablet 100 mg PO DAILY PRN Constipation 03/28/20 08/13/21 History doxazosin 4 mg tablet 8 mg PO DAILY CHF 03/28/20 12/11/21 History furosemide 20 mg tablet 20 mg PO BID 03/28/20 08/20/21 History insulin aspart U-100 100 unit/mL 6 unit SUBCUT BID 03/28/20 08/13/21 History (3 mL) subcutaneous pen (Novolog Flexpen U-100 Insulin aspart) insulin glargine 100 unit/mL (3 14 unit SUBCUT DAILY 03/28/20 08/20/21 History mL) subcutaneous pen (Lantus Solostar U-100 Insulin) isosorbide mononitrate 30 mg 30 mg PO DAILY 03/28/20 12/11/21 History tablet,extended release 24 hr lidocaine 4 % topical cream 1 applic topical QID 03/28/20 08/13/21 History magnesium oxide 800 mg PO DAILY Leg cramps 03/28/20 12/11/21 History multivitamin 1 cap PO DAILY 03/28/20 12/11/21 History prednisone 5 mg tablet 5 mg PO DAILY Chronic Kidney 03/28/20 08/20/21 History Disease sertraline 100 mg tablet 50 mg PO DAILY 03/28/20 12/11/21 History simvastatin 20 mg tablet 20 mg PO BEDTIME 03/28/20 08/20/21 History clopidogrel 75 mg tablet 75 mg PO DAILY 09/09/20 08/20/21 History acetaminophen 325 mg tablet 650 mg PO TID #40 tabs 09/19/20 12/11/21 Rx docusate sodium 100 mg capsule 100 mg PO BID #60 caps 09/19/20 08/13/21 Rx (DOK) anagrelide 0.5 mg capsule 0.5 mg PO BID 08/20/21 08/20/21 History buspirone 5 mg tablet 5 mg PO TID 08/20/21 12/11/21 History carvedilol 25 mg tablet 25 mg PO BID 08/20/21 12/11/21 History hydralazine 10 mg tablet 10 mg PO TID 08/20/21 12/11/21 History losartan 50 mg tablet 50 mg PO BID 08/20/21 08/20/21 History nifedipine 60 mg PO BEDTIME 08/20/21 12/11/21 History alprazolam 0.25 mg tablet 0.25 mg PO BID PRN Anxiety #40 tabs 08/24/21 08/13/21 Rx cephalexin 500 mg capsule 500 mg PO BID #14 caps 08/24/21 Rx hydroxyzine pamoate 25 mg capsule 25 mg PO Q4HR PRN Muscle Spasm 08/24/21 Rx #120 caps oxycodone 5 mg tablet 5 mg PO Q3HR PRN pain, severe #60 08/24/21 Rx tabs tramadol 50 mg tablet 50 mg PO QID PRN Pain, Moderate 08/24/21 12/11/21 Rx (4-6) #120 tabs Allergies Allergy/AdvReac Type Severity Reaction Status Date / Time caffeine Allergy Mild Rash Verified 12/11/21 14:11 clonidine Allergy Mild Rash Verified 12/11/21 14:11 lansoprazole [From Prevacid] Allergy Mild Rash Verified 12/11/21 14:11 Penicillins Allergy Mild Rash Verified 12/11/21 14:11 spironolactone Allergy Mild Rash Verified 12/11/21 14:11 aspirin Allergy Reaction Verified 12/11/21 14:11 not listed egg AdvReac Nausea Verified 12/11/21 14:11 milk AdvReac Cramp Verified 12/11/21 14:11 Review of Systems Review of Systems ROS: Yes All systems reviewed with the patient and are negative except as otherwise documented Exam Vital Signs (past 8 hours): - 12/11/21 14:02 12/11/21 14:13 12/11/21 14:30 Temperature 98 F Pulse Rate 75 75 78 Respiratory Rate 16 29 H 26 H Blood Pressure 136/96 H Pulse Oximetry 98 98 98 Oxygen Delivery Method Room Air Room Air Oxygen Flow Rate 12/11/21 15:00 12/11/21 15:30 12/11/21 16:00 Temperature Pulse Rate 76 71 73 Respiratory Rate 23 20 18 Blood Pressure Pulse Oximetry Oxygen Delivery Method Oxygen Flow Rate 12/11/21 16:30 12/11/21 17:00 12/11/21 17:30 Temperature Pulse Rate 79 69 80 Respiratory Rate 20 17 Blood Pressure Pulse Oximetry Oxygen Delivery Method Oxygen Flow Rate 12/11/21 17:46 12/11/21 17:46 12/11/21 17:47 Temperature Pulse Rate 76 76 Respiratory Rate 24 27 H Blood Pressure 130/78 Pulse Oximetry 98 98 Oxygen Delivery Method Oxygen Flow Rate 12/11/21 17:47 12/11/21 18:24 12/11/21 18:40 Temperature Pulse Rate 76 81 Respiratory Rate 24 16 Blood Pressure 128/81 136/88 137/71 Pulse Oximetry 97 98 Oxygen Delivery Method Room Air Oxygen Flow Rate 12/11/21 18:43 12/11/21 20:26 Temperature Pulse Rate 81 Respiratory Rate 16 Blood Pressure 137/71 Pulse Oximetry 98 96 Oxygen Delivery Method Room Air Oxygen Flow Rate 0 Oxygen Delivery Method Room Air Oxygen Flow Rate 0 Narrative Exam Narrative: Gen: Alert, oriented, well-nourished 76 y.o. [place]ian female, appears uncomfortable HEENT: normocephalic, atraumatic, conjunctiva clear, sclera non-icteric, oral mucosa pink and moist Neck: supple, full ROM, no JVD, trachea is midline Resp: Tachypneac, bilateral wheezes on 2L O2 CV: RRR, no murmur or rubs Abd: soft, non-tender, normoactive BTs Skin: numerous bruises on upper extremities, left worse than right Neuro: Alert and oriented X 4 w/no focal deficits. Speech slow, but clear and coherent. Extremities: flaccid on right, no edema, negative Zack?s sign Psyche: labile Objective Labs Result Diagrams: 12/11/21 15:20 12/11/21 15:20 Labs: Laboratory Results - last 24 hr 12/11/21 12/11/21 12/11/21 14:08 15:05 15:20 WBC 12.0 H RBC 3.18 L Hgb 9.0 L Hct 27.7 L MCV 87.0 MCH 28.3 MCHC 32.5 RDW 16.5 H Plt Count 609 H Neut % (Auto) 82.7 H Lymph % (Auto) 10.5 L [place] % (Auto) 6.3 Eos % (Auto) 0.1 L Baso % (Auto) 0.4 Neut # (Auto) 64267 H Lymph # (Auto) 1300 [place] # (Auto) 800 Eos # (Auto) 0 Baso # (Auto) 0 Sodium Potassium Chloride Carbon Dioxide BUN Creatinine Estimated GFR BUN/Creatinine Ratio Glucose Hemoglobin A1c 6.9 H Calcium Total Bilirubin AST ALT Alkaline Phosphatase Total Creatine Kinase CK-MB (CK-2) CK-MB (CK-2) Rel Index Troponin I NT-Pro-B Natriuret Pep Total Protein Albumin Globulin Albumin/Globulin Ratio Lipase Procalcitonin Urine Color Yellow Urine Appearance Cloudy Urine pH 5.0 Ur Specific [place] 1.015 Urine Protein 3+ H Urine Glucose (UA) Negative Urine Ketones Negative Urine Occult Blood Trace-lysed Urine Nitrate Negative Urine Bilirubin Negative Urine Urobilinogen 0.2 Ur Leukocyte Esterase 1+ H Urine RBC None seen Urine WBC 10-30/hpf H Ur Squamous Epith Cells 1-5 /hpf Ur Transition Epith Cell 1-5/hpf Ur Renal Epithelial Cell 0-1/hpf Amorphous Sediment 2+ Urine Bacteria Occasional (0-1) Ur Culture Indicated? Specimen cultured SARS-CoV-2 (PCR) Blood Type Antibody Screen 12/11/21 12/11/21 12/11/21 15:20 15:30 15:30 WBC RBC Hgb Hct MCV MCH MCHC RDW Plt Count Neut % (Auto) Lymph % (Auto) [place] % (Auto) Eos % (Auto) Baso % (Auto) Neut # (Auto) Lymph # (Auto) [place] # (Auto) Eos # (Auto) Baso # (Auto) Sodium 134 L Potassium 5.0 Chloride 102 Carbon Dioxide 22 BUN 18 H Creatinine 2.18 H Estimated GFR 23 L BUN/Creatinine Ratio 8.3 Glucose 173 H Hemoglobin A1c Calcium 8.8 Total Bilirubin 0.4 AST 65 H ALT 22 Alkaline Phosphatase 92 Total Creatine Kinase 104 CK-MB (CK-2) 7.99 H CK-MB (CK-2) Rel Index 7.7 H* Troponin I 5.780 H* NT-Pro-B Natriuret Pep 43031 H Total Protein 6.4 Albumin 3.8 Globulin 2.6 Albumin/Globulin Ratio 1.5 Lipase 84 Procalcitonin 0.90 H Urine Color Urine Appearance Urine pH Ur Specific [place] Urine Protein Urine Glucose (UA) Urine Ketones Urine Occult Blood Urine Nitrate Urine Bilirubin Urine Urobilinogen Ur Leukocyte Esterase Urine RBC Urine WBC Ur Squamous Epith Cells Ur Transition Epith Cell Ur Renal Epithelial Cell Amorphous Sediment Urine Bacteria Ur Culture Indicated? SARS-CoV-2 (PCR) Blood Type B Positive Antibody Screen Negative 12/11/21 18:48 WBC RBC Hgb Hct MCV MCH MCHC RDW Plt Count Neut % (Auto) Lymph % (Auto) [place] % (Auto) Eos % (Auto) Baso % (Auto) Neut # (Auto) Lymph # (Auto) [place] # (Auto) Eos # (Auto) Baso # (Auto) Sodium Potassium Chloride Carbon Dioxide BUN Creatinine Estimated GFR BUN/Creatinine Ratio Glucose Hemoglobin A1c Calcium Total Bilirubin AST ALT Alkaline Phosphatase Total Creatine Kinase CK-MB (CK-2) CK-MB (CK-2) Rel Index Troponin I NT-Pro-B Natriuret Pep Total Protein Albumin Globulin Albumin/Globulin Ratio Lipase Procalcitonin Urine Color Urine Appearance Urine pH Ur Specific [place] Urine Protein Urine Glucose (UA) Urine Ketones Urine Occult Blood Urine Nitrate Urine Bilirubin Urine Urobilinogen Ur Leukocyte Esterase Urine RBC Urine WBC Ur Squamous Epith Cells Ur Transition Epith Cell Ur Renal Epithelial Cell Amorphous Sediment Urine Bacteria Ur Culture Indicated? SARS-CoV-2 (PCR) Negative Blood Type Antibody Screen Assessment & Plan Assessment & Plan narrative: Lenora Marley is admitted for medical management of a NSTEMI and probable UTI vs pneumonia. NSTEMI, acute, present on admission She was initiated on heparin drip in the emergency department and will be continued [place] for chest pain Acute on chronic CHF, diastolic patient is likely volume overloaded with a very high proBNP Saline lock She was diuresed with 60 mg of IV furosemide in the ED and will have 40 mg IV b.i.d. Echo in the morning nebulizers for shortness of breath Probable UTI, acute, present on admission Continue IV ceftriaxone 1 gram daily CKD stage 4 creatinine is mildly elevated over baseline at 2.18 likely contributing to demand ischemia avoid nephrotoxins Maintain good blood pressure control Patient is in acute on chronic CHF and will be diuresed in the morning Essential Hypertension currently well controlled home medications ordered blood pressure well controlled continue carvedilol, losartan, imdur and doxazosin Hyperlipidemia continue low dose statin Depression, chronic Continue home dsoe of buspiron and sertriline Advance care planning, 30 minutes, Patient has a [facility] POLST form that states she was a full code. In the paperwork accompanying her from [facility], she has a POLST stating she is a DNR/DNI that has not dated. The patient stated affirmative to 1 having cardiac resuscitation to intubation, and doing everything that we can to keep her alive. She appeared to be lucid to me and her nurse when we discuss this. I contacted both her son and her daughter and in previous hospitalizations she did not want to be resuscitated but it appeared that she was also delirious at the time due to illness. This needs to be clarified in the morning when the patient is feeling better possibly when her son arrives from being out of town. Daughter also lives out of state but currently has COVID and will not be able to come into the hospital to see her mother until she completes her quarantine period. VTE Prophylaxis: Wells risk score 0 Patient is currently being heparinized. Patient is admitted to the inpatient service due to the severity of disease, risks of further disease progression and this stay is expected to exceed 2 midnights. FEN: IV fluids: heparin drip, diet: carb controlled diet, labs: CBC, C/BMP, liver enzymes, Mag, PT/INR Consultants: Central line was placed by Dr. Hobson, appreciate his assistance Dispo: unknown at this time Code status: full code, see above. [X] I have utilized all available immediate resources to obtain, update, or review of the patient's current medications [X] I have utilized all available immediate resources to obtain, update, or review of the patient's current medications COVID-19 COVID-19 status: Negative Result date/Date tested (Pos, Neg/Pending): 12/11/21 Time Spent With Patient Critical Care time: I spent a total of [] minutes of critical care time on this patient's care today; this time is exclusive of procedural time. Scores Wells' Criteria for PE Clinical signs and symptoms of DVT: No PE is #1 Dx or equally likely: No Heart rate > 100: No Immobilization at least 3 days or surg in previous 4 weeks: No History of PE or DVT: No Hemoptysis: No Malignancy w/Treatment within 6 months or palliative: No Wells' PE Score total: 0 Quality VTE Deep Vein Thrombosis/Pulmonary Embolism Present on Admission: No MIPS - Admit I confirm the patient?s Advance Care Plan is present, Code status is documented, Surrogate decision maker is in patient?s record [If Yes, STOP here]: Yes MIPS - DC The patient has current or prior documentation of left ventricular ejection fraction (LVEF) less than 40%, or moderate or severely depressed left ventricular systolic function.: No
[2021-12-11] MEDS: ALBUTEROL/IPRATROPIUM 3 ML AMPUL INH (20:58)
[2021-12-11] MEDS: DOCUSATE 100 MG CAPSULE PO (21:02)
[2021-12-11 21:49] LABS: Fractionated Inspired Oxygen 30; HCO3 ABG 20 mmol/L (22-26); Oxygen Saturation ABG 98 % (95-100); PO2 ABG 101 mmHg (80-100); TCO2 ABG 21 mmol/L (21-31); pH ABG 7.38 (7.35-7.45)
--- NOTE | 2021-12-11 23:14 | DI.RAD.S_ITS ---
PROCEDURE: XR CHEST 1V INDICATIONS: confirm line placement TECHNIQUE: One view of the chest was acquired. COMPARISON: [facility], CR, XR CHEST 1V, 12/11/2021, 14:08. FINDINGS: Surgical changes and devices: There is a right-sided central line seen, with the tip overlying the mid aspect of the superior vena cava, 4-5 cm above the cavoatrial junction. Lungs and pleura: Mild generalized interstitial prominence can be seen. Blunting of the costophrenic angles can be seen, left worse than right. No pneumothorax is seen. Mediastinum: Mediastinal contours appear normal. Heart size is mildly enlarged. Bones and chest wall: No suspicious bony lesions. Overlying soft tissues appear unremarkable. IMPRESSION: The tip of the right-sided central line can be seen overlying the mid superior vena cava. Mild cardiomegaly with small bilateral pleural effusions and interstitial prominence. CHF is suspected. Dictated by: Rock Aldana M.D. on 12/11/2021 at 22:51 Approved by: Rcok Aldana M.D. on 12/11/2021 at 22:53
--- NOTE | 2021-12-11 23:21 | PM.PROC.1 ---
Procedures Date/Time Date of procedure: 12/11/21 Time of procedure: 22:45 Central Line Placement Time out performed: Yes Patient placed on monitor/pulse ox: Yes MD prep: mask, gown and gloves Central line prep: Chlorhexidine scrub Local anesthesia used: lidocaine 1% Amount of anesthesia used (ml): 2 Ultrasound used for placement: Yes Central line lumen inserted: triple Post procedure: sutured in place, good blood return, all ports aspirated, flushed, capped and sterile dressing applied Post procedure x-ray: tip of catheter in good position and no pneumothorax seen Patient tolerated procedure: well Complications: none
[2021-12-11] MEDS: SODIUM CHLORIDE 0.9% FLUSH 10 ML IV (23:28)
[2021-12-11 23:47] LABS: Creatine Kinase 105 U/L (30-135)
[2021-12-12] VITALS (60 sets, daily range): BP systolic 106–164; BP diastolic 55–92; PULSE 66–114; RESP 12–52; TEMP 34.1–37; O2SAT 96–100
[2021-12-12] LABS: PTT Partial Thromboplastin Tim > 400 SECONDS (26-36)
[2021-12-12 00:02] LABS: Creatine Kinase MB 7.68 ng/mL (<2.37)
[2021-12-12 00:06] LABS: CKMB % Relative Index 7.3 % (1.5-5.0)
--- NOTE | 2021-12-12 00:14 | PC.NURSE ---
Addendum entered by Norma Oliveros R.N. 12/12/21 05:03: Patient is again having tachypnea with RR of 32 along with audible wheezing and diaphoresis. HR 106 with BP of 147/85. Denies chest pain when asked. Thomas SMITH, informed and she requested a.m. labs be drawn at that time. Lab drawn and sent. RT here and provided neb Rx without much improvement. Original Note: Patient is alert and oriented but soft spoken and sometimes difficult to understand. Breath sounds with expiratory wheezes throughout and audible. Complained of not being able to breathe although RA sat was 96% so placed on oxygen at 2L/min with sat improving to 99%. Thomas SMITH, informed and RT ordered and up to see patient. Patient became diaphoretic, cool and clammy with pale pallor. Was tachypneic at 28 but did improve with neb Rx but continued to look pale and was diaphoretic. BP was 141/80 with HR of 91 Labs ordered by Thomas but lab unable to draw blood due to poor IV access. PICC ordered but they stated they would be unable to come until morning so Thomas contacted anesthesiologist chief juvenile probation officer, Jazlyn, who came in and placed a triple lumen central line. Patient is currently asleep on RA, RR of 24. PTT came back > 400 so heparin gtt stopped for next hour. Troponin also increased at 6.430 and LUIS Guzman, was informed.
[2021-12-12] MEDS: ALBUTEROL/IPRATROPIUM 3 ML AMPUL INH (04:15)
[2021-12-12] MEDS: SODIUM CHLORIDE 0.9% FLUSH 10 ML IV ×2 (04:45→08:11)
[2021-12-12 05:14] LABS: Add Manual Diff / Slide Review NO; Basophils Absolute Auto 100 /uL (0-100); Basophils Percent Auto 0.5 % (0-2); Eosinophils Absolute Auto 0 /uL (0-450); Hematocrit 26.9 % (36-46); Hemoglobin 8.9 g/dL (12.0-16.0); Lymphocytes Absolute Auto 2100 /uL (1100-4500); Lymphocytes Percent Auto 14.6 % (25-40); Mean Corpuscular HGB Conc 33.3 % (30-36); Mean Corpuscular Hemoglobin 28.8 PG (26-34); Mean Corpuscular Volume 86.5 fL (80-100); Monocytes Absolute Auto 1200 /uL (0-900); Neutrophils Absolute Auto 11100 /uL (1500-7000); Neutrophils Percent Auto 76.9 % (50-75); Platelet Count 765 X10^3/uL (150-400); Red Blood Cell Count 3.11 X10^6/uL (4.0-5.2); Red Cell Distribution Width 16.7 % (11.6-14.8); White Blood Cell Count 14.4 X10^3/uL (4.5-11.0)
[2021-12-12 05:18] LABS: Creatine Kinase 110 U/L (30-135)
[2021-12-12 05:19] LABS: Alanine Aminotransferase 66 IU/L (<35); Albumin 3.7 g/dL (3.5-5.0); Albumin Globulin Ratio 1.5 (1.0-2.8); Alkaline Phosphatase 82 U/L (38-126); Aspartate Aminotransferase 177 IU/L (14-36); BUN Creatinine Ratio 7.9 (6-22); Bilirubin Total 0.3 mg/dL (0.2-1.3); Blood Urea Nitrogen 23 mg/dL (7-17); Calcium 8.2 mg/dL (8.4-10.2); Carbon Dioxide 18 mmol/L (22-32); Chloride 102 mmol/L (98-107); Estimated Glomerular Filt Rate 16 mL/min (>60); Globulin 2.4 g/dL (1.7-4.1); Glucose 202 mg/dL (80-110); HEMOLYSIS < 15 (0-50); Magnesium 2.1 mg/dL (1.6-2.3); Potassium 5.1 mmol/L (3.4-5.1); Sodium 135 mmol/L (137-145); Total Protein 6.1 g/dL (6.3-8.2)
[2021-12-12 05:20] LABS: Cholesterol 116 mg/dL (140-199); HDL Cholesterol 65 mg/dL (40-60); LDL Cholesterol Calculated 27 mg/dL (<100); Triglycerides 119 mg/dL (35-150)
[2021-12-12 05:39] LABS: CKMB % Relative Index 7.5 % (1.5-5.0)
[2021-12-12 05:48] LABS: PTT Partial Thromboplastin Tim 62 SECONDS (26-36)
[2021-12-12 06:30] LABS: Platelet Estimate Increased on smear
[2021-12-12] MEDS: FUROSEMIDE 40 MG/4 ML VIAL IV (08:08)
[2021-12-12] MEDS: BUSPIRONE 5 MG TABLET PO (08:09)
[2021-12-12] MEDS: carvediloL 12.5 MG TABLET 25 MG PO (08:09)
[2021-12-12] MEDS: ASPIRIN EC 81 MG TABLET PO (08:09)
[2021-12-12] MEDS: ISOSORBIDE MONONITRATE ER 30 MG TABLET PO (08:10)
[2021-12-12] MEDS: SERTRALINE 50 MG TABLET PO (08:10)
[2021-12-12] MEDS: DOCUSATE 100 MG CAPSULE PO (08:10)
[2021-12-12] MEDS: FUROSEMIDE 100 MG/10 ML VIAL 60 MG IV (10:03)
--- NOTE | 2021-12-12 10:10 | PC.NURSE ---
Transfer: Pt requiring bipap due to cont sob, lungs w/crackles through out, resp are labored, uses accessory muscles to breathe. Sat on O2 is 100%. RR 30 when resting, 44 when awake and talking. Pt states she is tired SVery tired. Seen by MD and decision made to transfer pt to ICU. In the mean time Carlota and Al called on a conference call. They were updated on their mothers condition. She has been moved to ICU. RM 230. They expressed concerns about their mothers code status and she had a POLST and why was it not followed. The document wasn't dated. They would like to speak to MD about same. Report given to Yolanda BEDOLLA in [facility]. Dr. Finch notified of dtr and son concern about code status and they would like to speak with him. Dr. Finch also received their phone number.
--- NOTE | 2021-12-12 10:30 | PM.CN.EICU ---
History of Present Illness Consult details Chief complaint: SOB, Fluid Overload Consent obtained for tele-food and beverage director care: Yes Patient Location: ICU Provider location (State): [place] Other participants/roles: MD,RN, RT, Pharmcist Narrative: Marely Marley is a 76 yo female with PAF, IDDM, hypertension, CKD stage IV, thrombocytopenia (resolved this admission) , admitted for shortness of breath, back and feet pain, and generalized weakness.? She denied any fever or fever. She was found to have NSTEMI.? Found to have a positive procalcitonin and elevated white count and was started on IV ceftriaxone for possible UTI. This morning patient respiratory status worsened, tachypnea in 30s, CXR on admission showed pul edema, she received 40 mg of Lasix this am with no response. Pt is on heparin drip, already received aspirin and Coreg. Cardiology consulted, plan to transfer out for higher level of care but no available beds and no clear time for when that will happen. Assessment: Acute NSTEMI Acute hypoxemic respiratory failure 2/2 pul edema Pul edema 2/2 acute systolic and/ or diastolic CHF BEE on CKD stage 4 ( cr baseline 2. Acute metabolic acidosis Acute metabolic encephalopathy H/o of HTN H/o of PAF H/o of CKD 4 Plan: BiPAP 12/6/20% (sat at 100%) Check CXR IV Lasix 60 mg now, followed by Lasix drip 15 mg /hr, goal 100-150 ml/hr Continue IV heparin drip per protocol No current chest pain, morphine and Nitro as needed Hold BB given the state of HF Add plavix to aspirin ([place] isn?t available) 2 D echo Switch home PPI to IV Continue ceftriaxone and f/u ucx Hold BP meds with active diuresis expecting BP to become soft, may resume small dose of ROSEANN I or ARB when respiratory status & BEE improves and HDs are stable Statin, closely watch LFT, hold if worsens Hold psych meds Code status: Hospitalist is the process of calling family to clarify goals of care Plan discussed with team RN, MD, RT & pharmacist Pending transfer to higher level of care [facility] Medical History Anemia Anxiety Atypical chest pain Cataracts, bilateral CKD (chronic kidney disease), stage IV Congestive heart failure CVA (cerebral vascular accident) Diabetes Diabetic macular edema Diabetic neuropathy Diabetic retinopathy Diastolic dysfunction Edema Essential thrombocythemia Essential thrombocytosis Gait disorder GERD (gastroesophageal reflux disease) Glaucoma HTN (hypertension) Hypercholesterolemia Hyponatremia Insomnia Left ventricular hypertrophy Major depressive disorder Osteoarthritis Pain Pseudophakia of left eye Vitreous hemorrhage of right eye Surgical History History of arthroplasty of left knee (04/01/20) Social History household members: none Smoking Status: Former smoker alcohol intake: never Current Medications Current Medications Medications: Home Medications albuterol sulfate 90 mcg/actuation aerosol inhaler 1 inh inhalation QID PRN Shortness Of Breath 03/28/20 [History Confirmed 12/11/21] doxazosin 4 mg tablet 8 mg PO DAILY CHF 03/28/20 [History Confirmed 12/11/21] isosorbide mononitrate 30 mg tablet,extended release 24 hr 30 mg PO DAILY 03/28/20 [History Confirmed 12/11/21] magnesium oxide 400 mg PO DAILY Leg cramps 03/28/20 [History Confirmed 12/12/21] multivitamin 1 cap PO DAILY 03/28/20 [History Confirmed 12/11/21] sertraline 100 mg tablet 100 mg PO DAILY 03/28/20 [History Confirmed 12/12/21] acetaminophen 325 mg tablet 650 mg PO TID #40 tabs 09/19/20 [Rx Confirmed 12/11/21] buspirone 5 mg tablet 5 mg PO TID 08/20/21 [History Confirmed 12/11/21] carvedilol 25 mg tablet 25 mg PO BID 08/20/21 [History Confirmed 12/11/21] hydralazine 10 mg tablet 10 mg PO TID 08/20/21 [History Confirmed 12/11/21] nifedipine 60 mg PO BEDTIME 08/20/21 [History Confirmed 12/11/21] atorvastatin 10 mg tablet 10 mg PO BEDTIME 12/12/21 [History Confirmed 12/12/21] bisacodyl 10 mg rectal suppository (Dulcolax (bisacodyl)) 10 mg DE DAILY PRN Constipation 12/12/21 [History Confirmed 12/12/21] diclofenac sodium 3 % topical gel 1 applic topical BID PRN arthritis 12/12/21 [History Confirmed 12/12/21] ferrous sulfate 325 mg (65 mg iron) tablet 325 mg PO TID 12/12/21 [History Confirmed 12/12/21] fluticasone 100 mcg-salmeterol 50 mcg/dose blistr powdr for inhalation (Advair Diskus) 1 inh inhalation Q12H 12/12/21 [History Confirmed 12/12/21] gabapentin 300 mg capsule 300 mg PO DAILY 12/12/21 [History Confirmed 12/12/21] lidocaine 5 % topical patch (Lidoderm) 1 patch topical DAILY PRN pain 12/12/21 [History Confirmed 12/12/21] loperamide 2 mg capsule 2 mg PO QID PRN Diarrhea 12/12/21 [History Confirmed 12/12/21] metformin 500 mg tablet 250 mg PO TID 12/12/21 [History Confirmed 12/12/21] mineral oil 118 ml DE DAILY PRN Constipation 12/12/21 [History Confirmed 12/12/21] nifedipine 60 mg tablet,extended release 24 hr 60 mg PO DAILY 12/12/21 [History Confirmed 12/12/21] pantoprazole 20 mg tablet,delayed release (Protonix) 40 mg PO DAILY 12/12/21 [History Confirmed 12/12/21] polyethylene glycol 3350 17 gram/dose oral powder (Miralax) 17 g PO DAILY PRN Constipation 12/12/21 [History Confirmed 12/12/21] sacubitril 97 mg-valsartan 103 mg tablet 1 tab PO BID 12/12/21 [History Confirmed 12/12/21] sennosides 8.6 mg tablet (senna) 17.2 mg PO DAILY PRN Constipation 12/12/21 [History Confirmed 12/12/21] tramadol 50 mg tablet 100 mg PO TID 12/12/21 [History Confirmed 12/12/21] Exam Vital Signs (past 8 hours): - 12/12/21 04:15 12/12/21 05:09 12/12/21 08:09 Temperature 96.2 F L Pulse Rate 114 H 106 H 88 Respiratory Rate 28 H 32 H Blood Pressure 147/85 H 133/92 H Pulse Oximetry 96 100 Oxygen Delivery Method Room Air Oxygen Flow Rate 2 12/12/21 08:48 12/12/21 07:40 12/12/21 09:22 Temperature Pulse Rate 83 Respiratory Rate 26 H 31 H Blood Pressure Pulse Oximetry 100 Oxygen Delivery Method Nasal Cannula Oxygen Flow Rate 2.5 12/12/21 09:24 12/12/21 09:24 12/12/21 09:25 Temperature Pulse Rate 82 80 Respiratory Rate 52 H 41 H Blood Pressure 126/69 Pulse Oximetry 100 100 Oxygen Delivery Method Oxygen Flow Rate 12/12/21 09:25 12/12/21 09:30 12/12/21 09:30 Temperature Pulse Rate 79 Respiratory Rate 32 H Blood Pressure 123/64 115/61 Pulse Oximetry 100 Oxygen Delivery Method Oxygen Flow Rate 12/12/21 09:45 12/12/21 09:45 12/12/21 10:00 Temperature Pulse Rate 77 Respiratory Rate 19 Blood Pressure 115/66 106/65 Pulse Oximetry 100 Oxygen Delivery Method Oxygen Flow Rate 12/12/21 10:00 12/12/21 10:15 12/12/21 10:15 Temperature Pulse Rate 81 76 Respiratory Rate 24 19 Blood Pressure 114/72 Pulse Oximetry 100 100 Oxygen Delivery Method Oxygen Flow Rate Oxygen Delivery Method Nasal Cannula Oxygen Flow Rate 2.5 Objective Labs Result Diagrams: 12/12/21 04:45 12/12/21 04:45 Labs: Laboratory Results - last 24 hr 12/11/21 12/11/21 12/11/21 14:08 15:05 15:20 WBC 12.0 H RBC 3.18 L Hgb 9.0 L Hct 27.7 L MCV 87.0 MCH 28.3 MCHC 32.5 RDW 16.5 H Plt Count 609 H Neut % (Auto) 82.7 H Lymph % (Auto) 10.5 L [place] % (Auto) 6.3 Eos % (Auto) 0.1 L Baso % (Auto) 0.4 Neut # (Auto) 91185 H Lymph # (Auto) 1300 [place] # (Auto) 800 Eos # (Auto) 0 Baso # (Auto) 0 Platelet Estimate RBC Morphology APTT ABG pH ABG pCO2 ABG pO2 ABG HCO3 ABG Total CO2 ABG O2 Saturation ABG Base Excess FiO2 Sodium Potassium Chloride Carbon Dioxide BUN Creatinine Estimated GFR BUN/Creatinine Ratio Glucose Hemoglobin A1c 6.9 H Calcium Magnesium Total Bilirubin AST ALT Alkaline Phosphatase Total Creatine Kinase CK-MB (CK-2) CK-MB (CK-2) Rel Index Troponin I NT-Pro-B Natriuret Pep Total Protein Albumin Globulin Albumin/Globulin Ratio Triglycerides Cholesterol LDL Cholesterol, Calc HDL Cholesterol Lipase Procalcitonin TSH Urine Color Yellow Urine Appearance Cloudy Urine pH 5.0 Ur Specific [place] 1.015 Urine Protein 3+ H Urine Glucose (UA) Negative Urine Ketones Negative Urine Occult Blood Trace-lysed Urine Nitrate Negative Urine Bilirubin Negative Urine Urobilinogen 0.2 Ur Leukocyte Esterase 1+ H Urine RBC None seen Urine WBC 10-30/hpf H Ur Squamous Epith Cells 1-5 /hpf Ur Transition Epith Cell 1-5/hpf Ur Renal Epithelial Cell 0-1/hpf Amorphous Sediment 2+ Urine Bacteria Occasional (0-1) Ur Culture Indicated? Specimen cultured SARS-CoV-2 (PCR) Blood Type Antibody Screen 12/11/21 12/11/21 12/11/21 15:20 15:30 15:30 WBC RBC Hgb Hct MCV MCH MCHC RDW Plt Count Neut % (Auto) Lymph % (Auto) [place] % (Auto) Eos % (Auto) Baso % (Auto) Neut # (Auto) Lymph # (Auto) [place] # (Auto) Eos # (Auto) Baso # (Auto) Platelet Estimate RBC Morphology APTT ABG pH ABG pCO2 ABG pO2 ABG HCO3 ABG Total CO2 ABG O2 Saturation ABG Base Excess FiO2 Sodium 134 L Potassium 5.0 Chloride 102 Carbon Dioxide 22 BUN 18 H Creatinine 2.18 H Estimated GFR 23 L BUN/Creatinine Ratio 8.3 Glucose 173 H Hemoglobin A1c Calcium 8.8 Magnesium Total Bilirubin 0.4 AST 65 H ALT 22 Alkaline Phosphatase 92 Total Creatine Kinase 104 CK-MB (CK-2) 7.99 H CK-MB (CK-2) Rel Index 7.7 H* Troponin I 5.780 H* NT-Pro-B Natriuret Pep 98283 H Total Protein 6.4 Albumin 3.8 Globulin 2.6 Albumin/Globulin Ratio 1.5 Triglycerides Cholesterol LDL Cholesterol, Calc HDL Cholesterol Lipase 84 Procalcitonin 0.90 H TSH Urine Color Urine Appearance Urine pH Ur Specific [place] Urine Protein Urine Glucose (UA) Urine Ketones Urine Occult Blood Urine Nitrate Urine Bilirubin Urine Urobilinogen Ur Leukocyte Esterase Urine RBC Urine WBC Ur Squamous Epith Cells Ur Transition Epith Cell Ur Renal Epithelial Cell Amorphous Sediment Urine Bacteria Ur Culture Indicated? SARS-CoV-2 (PCR) Blood Type B Positive Antibody Screen Negative 12/11/21 12/11/21 12/11/21 18:48 21:31 23:28 WBC RBC Hgb Hct MCV MCH MCHC RDW Plt Count Neut % (Auto) Lymph % (Auto) [place] % (Auto) Eos % (Auto) Baso % (Auto) Neut # (Auto) Lymph # (Auto) [place] # (Auto) Eos # (Auto) Baso # (Auto) Platelet Estimate RBC Morphology APTT > 400 H* ABG pH 7.38 ABG pCO2 34.0 L ABG pO2 101 H ABG HCO3 20 L ABG Total CO2 21 ABG O2 Saturation 98 ABG Base Excess -5.0 L FiO2 30 Sodium Potassium Chloride Carbon Dioxide BUN Creatinine Estimated GFR BUN/Creatinine Ratio Glucose Hemoglobin A1c Calcium Magnesium Total Bilirubin AST ALT Alkaline Phosphatase Total Creatine Kinase CK-MB (CK-2) CK-MB (CK-2) Rel Index Troponin I NT-Pro-B Natriuret Pep Total Protein Albumin Globulin Albumin/Globulin Ratio Triglycerides Cholesterol LDL Cholesterol, Calc HDL Cholesterol Lipase Procalcitonin TSH Urine Color Urine Appearance Urine pH Ur Specific [place] Urine Protein Urine Glucose (UA) Urine Ketones Urine Occult Blood Urine Nitrate Urine Bilirubin Urine Urobilinogen Ur Leukocyte Esterase Urine RBC Urine WBC Ur Squamous Epith Cells Ur Transition Epith Cell Ur Renal Epithelial Cell Amorphous Sediment Urine Bacteria Ur Culture Indicated? SARS-CoV-2 (PCR) Negative Blood Type Antibody Screen 12/11/21 12/12/21 12/12/21 23:28 04:45 04:45 WBC 14.4 H RBC 3.11 L Hgb 8.9 L Hct 26.9 L MCV 86.5 MCH 28.8 MCHC 33.3 RDW 16.7 H Plt Count 765 H Neut % (Auto) 76.9 H Lymph % (Auto) 14.6 L [place] % (Auto) 8.0 Eos % (Auto) 0.0 L Baso % (Auto) 0.5 Neut # (Auto) 90223 H Lymph # (Auto) 2100 [place] # (Auto) 1200 H Eos # (Auto) 0 Baso # (Auto) 100 Platelet Estimate Increased on smear RBC Morphology Not Reportable APTT ABG pH ABG pCO2 ABG pO2 ABG HCO3 ABG Total CO2 ABG O2 Saturation ABG Base Excess FiO2 Sodium Potassium Chloride Carbon Dioxide BUN Creatinine Estimated GFR BUN/Creatinine Ratio Glucose Hemoglobin A1c Calcium Magnesium Total Bilirubin AST ALT Alkaline Phosphatase Total Creatine Kinase 105 CK-MB (CK-2) 7.68 H CK-MB (CK-2) Rel Index 7.3 H* Troponin I 6.430 H* NT-Pro-B Natriuret Pep Total Protein Albumin Globulin Albumin/Globulin Ratio Triglycerides 119 Cholesterol 116 L LDL Cholesterol, Calc 27 HDL Cholesterol 65 H Lipase Procalcitonin TSH Urine Color Urine Appearance Urine pH Ur Specific [place] Urine Protein Urine Glucose (UA) Urine Ketones Urine Occult Blood Urine Nitrate Urine Bilirubin Urine Urobilinogen Ur Leukocyte Esterase Urine RBC Urine WBC Ur Squamous Epith Cells Ur Transition Epith Cell Ur Renal Epithelial Cell Amorphous Sediment Urine Bacteria Ur Culture Indicated? SARS-CoV-2 (PCR) Blood Type Antibody Screen 12/12/21 12/12/21 12/12/21 04:45 04:45 04:45 WBC RBC Hgb Hct MCV MCH MCHC RDW Plt Count Neut % (Auto) Lymph % (Auto) [place] % (Auto) Eos % (Auto) Baso % (Auto) Neut # (Auto) Lymph # (Auto) [place] # (Auto) Eos # (Auto) Baso # (Auto) Platelet Estimate RBC Morphology APTT ABG pH ABG pCO2 ABG pO2 ABG HCO3 ABG Total CO2 ABG O2 Saturation ABG Base Excess FiO2 Sodium 135 L Potassium 5.1 Chloride 102 Carbon Dioxide 18 L BUN 23 H Creatinine 2.90 H Estimated GFR 16 L BUN/Creatinine Ratio 7.9 Glucose 202 H Hemoglobin A1c Calcium 8.2 L Magnesium 2.1 Total Bilirubin 0.3 AST 177 H ALT 66 H Alkaline Phosphatase 82 Total Creatine Kinase 110 CK-MB (CK-2) 8.20 H CK-MB (CK-2) Rel Index 7.5 H* Troponin I 6.480 H* NT-Pro-B Natriuret Pep Total Protein 6.1 L Albumin 3.7 Globulin 2.4 Albumin/Globulin Ratio 1.5 Triglycerides Cholesterol LDL Cholesterol, Calc HDL Cholesterol Lipase Procalcitonin TSH 2.80 Urine Color Urine Appearance Urine pH Ur Specific [place] Urine Protein Urine Glucose (UA) Urine Ketones Urine Occult Blood Urine Nitrate Urine Bilirubin Urine Urobilinogen Ur Leukocyte Esterase Urine RBC Urine WBC Ur Squamous Epith Cells Ur Transition Epith Cell Ur Renal Epithelial Cell Amorphous Sediment Urine Bacteria Ur Culture Indicated? SARS-CoV-2 (PCR) Blood Type Antibody Screen 12/12/21 04:45 WBC RBC Hgb Hct MCV MCH MCHC RDW Plt Count Neut % (Auto) Lymph % (Auto) [place] % (Auto) Eos % (Auto) Baso % (Auto) Neut # (Auto) Lymph # (Auto) [place] # (Auto) Eos # (Auto) Baso # (Auto) Platelet Estimate RBC Morphology APTT 62 H D ABG pH ABG pCO2 ABG pO2 ABG HCO3 ABG Total CO2 ABG O2 Saturation ABG Base Excess FiO2 Sodium Potassium Chloride Carbon Dioxide BUN Creatinine Estimated GFR BUN/Creatinine Ratio Glucose Hemoglobin A1c Calcium Magnesium Total Bilirubin AST ALT Alkaline Phosphatase Total Creatine Kinase CK-MB (CK-2) CK-MB (CK-2) Rel Index Troponin I NT-Pro-B Natriuret Pep Total Protein Albumin Globulin Albumin/Globulin Ratio Triglycerides Cholesterol LDL Cholesterol, Calc HDL Cholesterol Lipase Procalcitonin TSH Urine Color Urine Appearance Urine pH Ur Specific [place] Urine Protein Urine Glucose (UA) Urine Ketones Urine Occult Blood Urine Nitrate Urine Bilirubin Urine Urobilinogen Ur Leukocyte Esterase Urine RBC Urine WBC Ur Squamous Epith Cells Ur Transition Epith Cell Ur Renal Epithelial Cell Amorphous Sediment Urine Bacteria Ur Culture Indicated? SARS-CoV-2 (PCR) Blood Type Antibody Screen Assessment & Plan Time Spent With Patient Critical Care time: I spent a total of [60] minutes of critical care time on this patient's care today; this time is exclusive of procedural time.
[2021-12-12 10:32] LABS: Creatine Kinase 100 U/L (30-135)
[2021-12-12 10:46] LABS: HCO3 VBG 18 mmol/L (23-28); PCO2 VBG 34.2 mmHg (45-50); PO2 VBG 41 mmHg (35-45); Total CO2 VBG 19 mmol/L (24-29); pH VBG 7.33 (7.33-7.43)
[2021-12-12 10:47] LABS: Oxygen Saturation VBG 74 % (70-75)
[2021-12-12] MEDS: FUROSEMIDE 100 MG in SODIUM CHLORIDE 0.9% 50 ML 9 MG IV (11:10)
[2021-12-12] MEDS: CLOPIDOGREL 75 MG TABLET 300 MG PO (11:10)
[2021-12-12] MEDS: HEPARIN DRIP 25,000 UNIT/500 ML IV.SOLN 13.2 UNIT IV (11:11)
--- NOTE | 2021-12-12 11:22 | DI.RAD.S_ITS ---
PROCEDURE: XR CHEST 1V INDICATIONS: worsened respiratory status TECHNIQUE: One view of the chest was acquired. COMPARISON: [facility], CR, XR CHEST 1V, 12/11/2021, 23:16. FINDINGS: Surgical changes and devices: Right IJ central venous catheter in good position, unchanged. No pneumothorax. Lungs and pleura: Obscuration left hemidiaphragm with blunting the left costophrenic angle, similar prior. Mediastinum: Mediastinal contours appear normal. Heart size is enlarged. Calcified right hilar node.. Bones and chest wall: No suspicious bony lesions. Overlying soft tissues appear unremarkable. IMPRESSION: Left pleural effusion with associated atelectasis and/or infiltrate, similar prior Approved by: Magno Gallagher M.D. on 12/12/2021 at 17:33
--- NOTE | 2021-12-12 11:24 | P.PN_ITS ---
Subjective Subjective Date Patient Seen: 12/12/21 Interval history: 76 year old female admitted with NSTEMI. She had worsening respiratory distress, placed on BIPAP and transferred to ICU. Now appears more comfortable. Denies chest pain, abdominal pain, nausea, or emesis. She just feels very short of breath. She is pending transfer to outside facility for C. Also with worsening renal failure with only 10 cc of urine output this AM despite 100 mg of IV lasix. Goals of care discussion noted below. Exam Vital Signs (past 8 hours): - 12/12/21 04:15 12/12/21 05:09 12/12/21 08:09 Temperature 96.2 F L Pulse Rate 114 H 106 H 88 Respiratory Rate 28 H 32 H Blood Pressure 147/85 H 133/92 H Pulse Oximetry 96 100 Oxygen Delivery Method Room Air Oxygen Flow Rate 2 Fraction of Inspired Oxygen 12/12/21 08:48 12/12/21 07:40 12/12/21 09:22 Temperature Pulse Rate 83 Respiratory Rate 26 H 31 H Blood Pressure Pulse Oximetry 100 Oxygen Delivery Method Nasal Cannula Oxygen Flow Rate 2.5 Fraction of Inspired Oxygen 12/12/21 09:24 12/12/21 09:24 12/12/21 09:25 Temperature Pulse Rate 82 80 Respiratory Rate 52 H 41 H Blood Pressure 126/69 Pulse Oximetry 100 100 Oxygen Delivery Method Oxygen Flow Rate Fraction of Inspired Oxygen 12/12/21 09:25 12/12/21 09:30 12/12/21 09:30 Temperature Pulse Rate 79 Respiratory Rate 32 H Blood Pressure 123/64 115/61 Pulse Oximetry 100 Oxygen Delivery Method Oxygen Flow Rate Fraction of Inspired Oxygen 12/12/21 09:45 12/12/21 09:45 12/12/21 10:00 Temperature Pulse Rate 77 Respiratory Rate 19 Blood Pressure 115/66 106/65 Pulse Oximetry 100 Oxygen Delivery Method Oxygen Flow Rate Fraction of Inspired Oxygen 12/12/21 10:00 12/12/21 10:15 12/12/21 10:15 Temperature Pulse Rate 81 76 Respiratory Rate 24 19 Blood Pressure 114/72 Pulse Oximetry 100 100 Oxygen Delivery Method Oxygen Flow Rate Fraction of Inspired Oxygen 12/12/21 10:35 12/12/21 10:00 Temperature Pulse Rate 75 Respiratory Rate 38 H Blood Pressure 115/61 Pulse Oximetry 100 Oxygen Delivery Method BiPAP Oxygen Flow Rate Fraction of Inspired Oxygen 28 28 Fraction of Inspired Oxygen 28 Oxygen Delivery Method BiPAP Oxygen Flow Rate 2.5 Narrative Exam Narrative: General:? Fatigued elderly female, tachypnic and uncomfortable. Improved with bipap mask and resting. HEENT:? Normocephalic, atraumatic, extraocular muscles intact, oral pharynx is clear and mucous membranes are moist. Neck: supple and symmetric, trachea is midline, no cervical adenopathy. + JVD Chest:? Normal AP diameter and contour without kyphoscoliosis, no tachypnea, equal chest rise bilaterally. Lungs:? Bibasilar crackles, diminished breath sounds bilateral lung bases. Cardio:?RRR no m/r/g. Abdomen: S NT ND. Musculoskeletal:? Muscle strength and tone are equal within normal limits, no deformity. Extremities: trace peripheral edema, no joint effusions Skin:? Pale,? Warm to touch,dry and intact without rashes, ulcerations or petechiae.? Neuro:?alert, communicates her own needs, oriented to name and hospital location, too short of breath to state other orientation questions but responds appropriately and thoughtfully to goals of care discussion questions. Psych:? anxious, but calm and cooperative with stable behaviors. Objective ECG Impression: NSR with TWI inferiolaterally. No ST changes. Labs Result Diagrams: 12/12/21 04:45 12/12/21 04:45 Labs: Laboratory Results - last 24 hr 12/11/21 12/11/21 12/11/21 14:08 15:05 15:20 WBC 12.0 H RBC 3.18 L Hgb 9.0 L Hct 27.7 L MCV 87.0 MCH 28.3 MCHC 32.5 RDW 16.5 H Plt Count 609 H Neut % (Auto) 82.7 H Lymph % (Auto) 10.5 L [place] % (Auto) 6.3 Eos % (Auto) 0.1 L Baso % (Auto) 0.4 Neut # (Auto) 50395 H Lymph # (Auto) 1300 [place] # (Auto) 800 Eos # (Auto) 0 Baso # (Auto) 0 Platelet Estimate RBC Morphology APTT ABG pH ABG pCO2 ABG pO2 ABG HCO3 ABG Total CO2 ABG O2 Saturation ABG Base Excess VBG pH VBG pCO2 VBG pO2 VBG HCO3 VBG Total CO2 VBG O2 Saturation VBG Base Excess FiO2 Sodium Potassium Chloride Carbon Dioxide BUN Creatinine Estimated GFR BUN/Creatinine Ratio Glucose Hemoglobin A1c 6.9 H Calcium Magnesium Total Bilirubin AST ALT Alkaline Phosphatase Total Creatine Kinase CK-MB (CK-2) CK-MB (CK-2) Rel Index Troponin I NT-Pro-B Natriuret Pep Total Protein Albumin Globulin Albumin/Globulin Ratio Triglycerides Cholesterol LDL Cholesterol, Calc HDL Cholesterol Lipase Procalcitonin TSH Urine Color Yellow Urine Appearance Cloudy Urine pH 5.0 Ur Specific [place] 1.015 Urine Protein 3+ H Urine Glucose (UA) Negative Urine Ketones Negative Urine Occult Blood Trace-lysed Urine Nitrate Negative Urine Bilirubin Negative Urine Urobilinogen 0.2 Ur Leukocyte Esterase 1+ H Urine RBC None seen Urine WBC 10-30/hpf H Ur Squamous Epith Cells 1-5 /hpf Ur Transition Epith Cell 1-5/hpf Ur Renal Epithelial Cell 0-1/hpf Amorphous Sediment 2+ Urine Bacteria Occasional (0-1) Ur Culture Indicated? Specimen cultured Nasal Screen MRSA (PCR) SARS-CoV-2 (PCR) Blood Type Antibody Screen 12/11/21 12/11/21 12/11/21 15:20 15:30 15:30 WBC RBC Hgb Hct MCV MCH MCHC RDW Plt Count Neut % (Auto) Lymph % (Auto) [place] % (Auto) Eos % (Auto) Baso % (Auto) Neut # (Auto) Lymph # (Auto) [place] # (Auto) Eos # (Auto) Baso # (Auto) Platelet Estimate RBC Morphology APTT ABG pH ABG pCO2 ABG pO2 ABG HCO3 ABG Total CO2 ABG O2 Saturation ABG Base Excess VBG pH VBG pCO2 VBG pO2 VBG HCO3 VBG Total CO2 VBG O2 Saturation VBG Base Excess FiO2 Sodium 134 L Potassium 5.0 Chloride 102 Carbon Dioxide 22 BUN 18 H Creatinine 2.18 H Estimated GFR 23 L BUN/Creatinine Ratio 8.3 Glucose 173 H Hemoglobin A1c Calcium 8.8 Magnesium Total Bilirubin 0.4 AST 65 H ALT 22 Alkaline Phosphatase 92 Total Creatine Kinase 104 CK-MB (CK-2) 7.99 H CK-MB (CK-2) Rel Index 7.7 H* Troponin I 5.780 H* NT-Pro-B Natriuret Pep 34945 H Total Protein 6.4 Albumin 3.8 Globulin 2.6 Albumin/Globulin Ratio 1.5 Triglycerides Cholesterol LDL Cholesterol, Calc HDL Cholesterol Lipase 84 Procalcitonin 0.90 H TSH Urine Color Urine Appearance Urine pH Ur Specific [place] Urine Protein Urine Glucose (UA) Urine Ketones Urine Occult Blood Urine Nitrate Urine Bilirubin Urine Urobilinogen Ur Leukocyte Esterase Urine RBC Urine WBC Ur Squamous Epith Cells Ur Transition Epith Cell Ur Renal Epithelial Cell Amorphous Sediment Urine Bacteria Ur Culture Indicated? Nasal Screen MRSA (PCR) SARS-CoV-2 (PCR) Blood Type B Positive Antibody Screen Negative 12/11/21 12/11/21 12/11/21 18:48 21:31 23:28 WBC RBC Hgb Hct MCV MCH MCHC RDW Plt Count Neut % (Auto) Lymph % (Auto) [place] % (Auto) Eos % (Auto) Baso % (Auto) Neut # (Auto) Lymph # (Auto) [place] # (Auto) Eos # (Auto) Baso # (Auto) Platelet Estimate RBC Morphology APTT > 400 H* ABG pH 7.38 ABG pCO2 34.0 L ABG pO2 101 H ABG HCO3 20 L ABG Total CO2 21 ABG O2 Saturation 98 ABG Base Excess -5.0 L VBG pH VBG pCO2 VBG pO2 VBG HCO3 VBG Total CO2 VBG O2 Saturation VBG Base Excess FiO2 30 Sodium Potassium Chloride Carbon Dioxide BUN Creatinine Estimated GFR BUN/Creatinine Ratio Glucose Hemoglobin A1c Calcium Magnesium Total Bilirubin AST ALT Alkaline Phosphatase Total Creatine Kinase CK-MB (CK-2) CK-MB (CK-2) Rel Index Troponin I NT-Pro-B Natriuret Pep Total Protein Albumin Globulin Albumin/Globulin Ratio Triglycerides Cholesterol LDL Cholesterol, Calc HDL Cholesterol Lipase Procalcitonin TSH Urine Color Urine Appearance Urine pH Ur Specific [place] Urine Protein Urine Glucose (UA) Urine Ketones Urine Occult Blood Urine Nitrate Urine Bilirubin Urine Urobilinogen Ur Leukocyte Esterase Urine RBC Urine WBC Ur Squamous Epith Cells Ur Transition Epith Cell Ur Renal Epithelial Cell Amorphous Sediment Urine Bacteria Ur Culture Indicated? Nasal Screen MRSA (PCR) SARS-CoV-2 (PCR) Negative Blood Type Antibody Screen 12/11/21 12/12/21 12/12/21 23:28 04:45 04:45 WBC 14.4 H RBC 3.11 L Hgb 8.9 L Hct 26.9 L MCV 86.5 MCH 28.8 MCHC 33.3 RDW 16.7 H Plt Count 765 H Neut % (Auto) 76.9 H Lymph % (Auto) 14.6 L [place] % (Auto) 8.0 Eos % (Auto) 0.0 L Baso % (Auto) 0.5 Neut # (Auto) 85482 H Lymph # (Auto) 2100 [place] # (Auto) 1200 H Eos # (Auto) 0 Baso # (Auto) 100 Platelet Estimate Increased on smear RBC Morphology Not Reportable APTT ABG pH ABG pCO2 ABG pO2 ABG HCO3 ABG Total CO2 ABG O2 Saturation ABG Base Excess VBG pH VBG pCO2 VBG pO2 VBG HCO3 VBG Total CO2 VBG O2 Saturation VBG Base Excess FiO2 Sodium Potassium Chloride Carbon Dioxide BUN Creatinine Estimated GFR BUN/Creatinine Ratio Glucose Hemoglobin A1c Calcium Magnesium Total Bilirubin AST ALT Alkaline Phosphatase Total Creatine Kinase 105 CK-MB (CK-2) 7.68 H CK-MB (CK-2) Rel Index 7.3 H* Troponin I 6.430 H* NT-Pro-B Natriuret Pep Total Protein Albumin Globulin Albumin/Globulin Ratio Triglycerides 119 Cholesterol 116 L LDL Cholesterol, Calc 27 HDL Cholesterol 65 H Lipase Procalcitonin TSH Urine Color Urine Appearance Urine pH Ur Specific [place] Urine Protein Urine Glucose (UA) Urine Ketones Urine Occult Blood Urine Nitrate Urine Bilirubin Urine Urobilinogen Ur Leukocyte Esterase Urine RBC Urine WBC Ur Squamous Epith Cells Ur Transition Epith Cell Ur Renal Epithelial Cell Amorphous Sediment Urine Bacteria Ur Culture Indicated? Nasal Screen MRSA (PCR) SARS-CoV-2 (PCR) Blood Type Antibody Screen 12/12/21 12/12/21 12/12/21 04:45 04:45 04:45 WBC RBC Hgb Hct MCV MCH MCHC RDW Plt Count Neut % (Auto) Lymph % (Auto) [place] % (Auto) Eos % (Auto) Baso % (Auto) Neut # (Auto) Lymph # (Auto) [place] # (Auto) Eos # (Auto) Baso # (Auto) Platelet Estimate RBC Morphology APTT ABG pH ABG pCO2 ABG pO2 ABG HCO3 ABG Total CO2 ABG O2 Saturation ABG Base Excess VBG pH VBG pCO2 VBG pO2 VBG HCO3 VBG Total CO2 VBG O2 Saturation VBG Base Excess FiO2 Sodium 135 L Potassium 5.1 Chloride 102 Carbon Dioxide 18 L BUN 23 H Creatinine 2.90 H Estimated GFR 16 L BUN/Creatinine Ratio 7.9 Glucose 202 H Hemoglobin A1c Calcium 8.2 L Magnesium 2.1 Total Bilirubin 0.3 AST 177 H ALT 66 H Alkaline Phosphatase 82 Total Creatine Kinase 110 CK-MB (CK-2) 8.20 H CK-MB (CK-2) Rel Index 7.5 H* Troponin I 6.480 H* NT-Pro-B Natriuret Pep Total Protein 6.1 L Albumin 3.7 Globulin 2.4 Albumin/Globulin Ratio 1.5 Triglycerides Cholesterol LDL Cholesterol, Calc HDL Cholesterol Lipase Procalcitonin TSH 2.80 Urine Color Urine Appearance Urine pH Ur Specific [place] Urine Protein Urine Glucose (UA) Urine Ketones Urine Occult Blood Urine Nitrate Urine Bilirubin Urine Urobilinogen Ur Leukocyte Esterase Urine RBC Urine WBC Ur Squamous Epith Cells Ur Transition Epith Cell Ur Renal Epithelial Cell Amorphous Sediment Urine Bacteria Ur Culture Indicated? Nasal Screen MRSA (PCR) SARS-CoV-2 (PCR) Blood Type Antibody Screen 12/12/21 12/12/21 12/12/21 04:45 09:30 10:10 WBC RBC Hgb Hct MCV MCH MCHC RDW Plt Count Neut % (Auto) Lymph % (Auto) [place] % (Auto) Eos % (Auto) Baso % (Auto) Neut # (Auto) Lymph # (Auto) [place] # (Auto) Eos # (Auto) Baso # (Auto) Platelet Estimate RBC Morphology APTT 62 H D ABG pH ABG pCO2 ABG pO2 ABG HCO3 ABG Total CO2 ABG O2 Saturation ABG Base Excess VBG pH VBG pCO2 VBG pO2 VBG HCO3 VBG Total CO2 VBG O2 Saturation VBG Base Excess FiO2 Sodium Potassium Chloride Carbon Dioxide BUN Creatinine Estimated GFR BUN/Creatinine Ratio Glucose Hemoglobin A1c Calcium Magnesium Total Bilirubin AST ALT Alkaline Phosphatase Total Creatine Kinase 100 CK-MB (CK-2) TNP CK-MB (CK-2) Rel Index TNP Troponin I 6.060 H* NT-Pro-B Natriuret Pep Total Protein Albumin Globulin Albumin/Globulin Ratio Triglycerides Cholesterol LDL Cholesterol, Calc HDL Cholesterol Lipase Procalcitonin TSH Urine Color Urine Appearance Urine pH Ur Specific [place] Urine Protein Urine Glucose (UA) Urine Ketones Urine Occult Blood Urine Nitrate Urine Bilirubin Urine Urobilinogen Ur Leukocyte Esterase Urine RBC Urine WBC Ur Squamous Epith Cells Ur Transition Epith Cell Ur Renal Epithelial Cell Amorphous Sediment Urine Bacteria Ur Culture Indicated? Nasal Screen MRSA (PCR) Negative for mrsa SARS-CoV-2 (PCR) Blood Type Antibody Screen 12/12/21 10:22 WBC RBC Hgb Hct MCV MCH MCHC RDW Plt Count Neut % (Auto) Lymph % (Auto) [place] % (Auto) Eos % (Auto) Baso % (Auto) Neut # (Auto) Lymph # (Auto) [place] # (Auto) Eos # (Auto) Baso # (Auto) Platelet Estimate RBC Morphology APTT ABG pH ABG pCO2 ABG pO2 ABG HCO3 ABG Total CO2 ABG O2 Saturation ABG Base Excess VBG pH 7.33 VBG pCO2 34.2 L VBG pO2 41 VBG HCO3 18 L VBG Total CO2 19 L VBG O2 Saturation 74 VBG Base Excess -8.0 L FiO2 Sodium Potassium Chloride Carbon Dioxide BUN Creatinine Estimated GFR BUN/Creatinine Ratio Glucose Hemoglobin A1c Calcium Magnesium Total Bilirubin AST ALT Alkaline Phosphatase Total Creatine Kinase CK-MB (CK-2) CK-MB (CK-2) Rel Index Troponin I NT-Pro-B Natriuret Pep Total Protein Albumin Globulin Albumin/Globulin Ratio Triglycerides Cholesterol LDL Cholesterol, Calc HDL Cholesterol Lipase Procalcitonin TSH Urine Color Urine Appearance Urine pH Ur Specific [place] Urine Protein Urine Glucose (UA) Urine Ketones Urine Occult Blood Urine Nitrate Urine Bilirubin Urine Urobilinogen Ur Leukocyte Esterase Urine RBC Urine WBC Ur Squamous Epith Cells Ur Transition Epith Cell Ur Renal Epithelial Cell Amorphous Sediment Urine Bacteria Ur Culture Indicated? Nasal Screen MRSA (PCR) SARS-CoV-2 (PCR) Blood Type Antibody Screen PFS Medical History Anemia Anxiety Atypical chest pain Cataracts, bilateral CKD (chronic kidney disease), stage IV Congestive heart failure CVA (cerebral vascular accident) Diabetes Diabetic macular edema Diabetic neuropathy Diabetic retinopathy Diastolic dysfunction Edema Essential thrombocythemia Essential thrombocytosis Gait disorder GERD (gastroesophageal reflux disease) Glaucoma HTN (hypertension) Hypercholesterolemia Hyponatremia Insomnia Left ventricular hypertrophy Major depressive disorder Osteoarthritis Pain Pseudophakia of left eye Vitreous hemorrhage of right eye Surgical History History of arthroplasty of left knee (04/01/20) Social History household members: none Smoking Status: Former smoker alcohol intake: never Assessment & Plan Assessment & Plan narrative: NSTEMI, acute, present on admission - continue heparin infusion - TTE pending - asa to continue along with statin. Hold beta kathrin given heart failure - appreciate tele-icu consultation, added plavix load and continue daily as well. - pending transfer to higher level facility for further management. Acute on possibly chronic heart failure, unknown EF. - patient takes entresto according to medication list. She is also on carvedilol and imdur. Though family reports no prior heart issues. - no evidence of heart failure previously in her records as well that we have available. - continue diuresis, though limited with low urine output. - hold home entresto. Acute respiratory failure with hypoxia secondary to volume overload - continue aggressive diuresis, though may be difficult with anuria. Metabolic encephalopathy - likely secondary to NSTEMI and acidosis. Continue above therapies. Anion gap metabolic acidosis - suspect secondary to uremia and acute renal failure Probable UTI, acute, present on admission - continue ceftriaxone. Acute renal failure with anuria on CKD stage 4 - only 10 cc output so far since kate placement, despite 100 mg lasix this AM. - continue kate - consider lasix infusion - follow cr. closely, renally dose medications. Essential Hypertension currently well controlled - management as ntoed above Hyperlipidemia Depression, chronic Advanced care planning: I spent a total of 50 mintues discussing advanced care planning with the patient and family and are summarized as noted below. Goals of care were discussed with patient and family (daughter and son via the phone). Patient herself was quite clear this morning that she would want to have a temporary breathing tube and would like further workup on her heart done to get better. She was not interested in dialysis. She would like to feel better if possible, but would not want prolonged supportive therapy with tube feedings or be on prolonged ventilator therapy. 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 She has expressed to her son and daughter that she would not want to become completely dependent and bedbound. They both report she has had a gradual decline in her abilities over the last two years since her knee surgery and has been requiring some assistance with her ADLs, though exact needs are not known at this time. She has no formal diagnosis of dementia. The family is reasonably concerned about any possible procedures and do not want the patient to end up bed bound and dependent on others given their prior discussions. When asked if they would want their mother to have possible cardiac interventions, daughter and son both stated no because of the above concerns. I re-iterated that the patient's decision at this time is quite clear, but that their feelings and wo rries are very much in the best interests of the patient. 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 Code: Full, surrogate decision makers are the patient's daughter and son DVT: on heparin infusion Dispo: ICU I spent 40 minutes providing critical care management this patient. This excludes time spent in performing separately billed procedures and also advanced care planning discussed above. Time Spent With Patient Critical Care time: I spent a total of [] minutes of critical care time on this patient's care today; this time is exclusive of procedural time. Quality VTE Deep Vein Thrombosis/Pulmonary Embolism Present on Admission: No
--- NOTE | 2021-12-12 13:11 | CM.DANOTE ---
DCP: Case received, EMR reviewed. Have not been able to meet with patient secondary to being not medically stable, and no permission was yet given to contact family. Was able to find out that patient did come from [facility] in [place], she is not at the assisted living facility in [place]. Left a message with nurse to call this DC Aircrewman back, from [facility], but have not yet received a response. Completed DCP assessment based upon information currently available. Patient is a 76 year old female who admitted yesterday afternoon to the care of the hospitalist team. PCP: Dr. Ambrose. Payer: confirmed: Medicare/[employer] Patient came to the hospital via ambulance from [facility] in [place], which is a snf. She was admitted secondary to having increased shortness of breath. According to notes, patient had also been seen at another facility multiple times. Patient is here for acute cardiac issues. Patient is now deemed full code, for POLST stating DNR was not signed. Patient informed hospitalist she wants full treatment. She is admitted for NSTEMI, and hospital is working on getting patient transferred to higher level hospital due to acute care needs. According notes, son and daughter share POA. Patient has been alert here in the hospital, she is currently on BIPAP in the ICU. Have not been able to get in touch with [facility] in [place], nurses not answering phones, and had already confirmed with [facility] in [place] that patient is not at their assisted facility. Did speak to radiology receptionist at [facility] in [place] and confirmed that she is their patient, and was transferred to [facility] for nursing, but they are not answering. Attempted again later in the am, so it is unclear as to how much assistance patient receives. P: DCP to continue to follow. At this time, plan is for patient to transport to higher level facility when bed becomes available. Will attempt to meet with patient today, but she is currently on BIAP. Ruthann Fong, RN/Track Layer Discharge Planning/Care Management CM Discharge Assessment Start: 12/12/21 13:07 Freq: Status: Active Protocol: Document 12/12/21 13:07 (Rec: 12/12/21 13:11 [id number]) Discharge Planning Assessment Assigned Antique Jewelry Repairer Ruthann Fong RN/Track Layer Advance Directives? Yes: POL Advance Directives on File No History Provided By Patient,Medical Record Prior Living Arrangements Assisted Living Household Members none Type of transporation used prior to Relies on Others admit Facility Name Admitted From: [facility] Willing to Return to Facility? Yes Needs Assistance With Bathing,Grooming,Meal Prep, Toileting,Managing Medications ,Home Chores / Shopping Caregiver for Another No DME Already Rented / Owned Wheelchair,FWW / Walker Patient/Family Preference Group Home Facility Comment Confirmed that patient resides at [facility] Discharge Plan Transfer to Higher Level of Care Transportation Arrangement Most likely will need to go ALS Referrals Initiated Other Additional Comment Hospitalist is working on getting patient to a higher level hospital for accutiy of needs. If patient plan is SNF: Has PASSR been Yes completed? Whiteboard Updated in Patient Room with No name and ext. # of Antique Jewelry Repairer Comment Patient is not medically stable, is currently in ICU on BIPAP, have not yet been able to update patient's board. She was moved from 214 to 230. Review Status In Process Next Review Type Continued Stay Review
[2021-12-12 14:19] LABS: Clostridium Difficile Tox PCR Negative for C. diff (Negative)
[2021-12-12] MEDS: MORPHINE 2 MG/ML INJ IV ×2 (15:58→17:30)
[2021-12-12] MEDS: LORazepam 2 MG/ML ORAL SOL 1 MG PO (17:25)
--- NOTE | 2021-12-12 18:29 | PM.EVENT ---
Event Note Event Note (Rapid Response, Code, or fall): Update Note: Patient informed nursing staff that she wished to stop therapies and remain comfortable. I confirmed this with the patient. I updated the daughter and son, they were in agreement with trying to keep her comfortable and no aggressive interventions. Currently will stop heparin infusion, stop transfer request to OSH, and stop lasix infusion. Will continue to monitor urinary output with kate, essentially she remains anuric at this time. Her TTE showed evidence of stress induced cardiomyopathy with an EF of approx. 15%. Will see about the possibility of returning to [facility] on hospice, timing unclear. Given her renal failure, she may continue to become more weak and somnolent. Ativan and morphine are provided as needed for comfort. Will continue limited medical interventions with aspirin, statin, and plavix orally, as well as continued oral medications or IV as needed primarily for comfort. Should she start to make urine at some point, goals of care can again be revisited but without adequate urine output I expect her overall status to progressively decline. Will limit labs to daily. Her troponin did downtrend in the early afternoon.
[2021-12-12 21:38] LABS: BUN Creatinine Ratio 8.3 (6-22); Blood Urea Nitrogen 28 mg/dL (7-17); Calcium 7.7 mg/dL (8.4-10.2); Carbon Dioxide 17 mmol/L (22-32); Chloride 96 mmol/L (98-107); Estimated Glomerular Filt Rate 13 mL/min (>60); Glucose 133 mg/dL (80-110); HEMOLYSIS < 15 (0-50); Potassium 4.5 mmol/L (3.4-5.1); Sodium 128 mmol/L (137-145)
[2021-12-13] VITALS (24 sets, daily range): BP systolic 126–133; BP diastolic 66; PULSE 67–118; RESP 23; TEMP 35.9; O2SAT 99–100
[2021-12-13] MEDS: ATORVASTATIN 20 MG TABLET 80 MG PO (00:51)
[2021-12-13] MEDS: PIPERACILLIN/TAZO 2.25 GM in SODIUM CHLORIDE 0.9% 100 ML IV (00:52)
[2021-12-13 05:40] LABS: Alanine Aminotransferase 84 IU/L (<35); Albumin 3.5 g/dL (3.5-5.0); Albumin Globulin Ratio 1.5 (1.0-2.8); Alkaline Phosphatase 69 U/L (38-126); Aspartate Aminotransferase 114 IU/L (14-36); Bilirubin Total 0.3 mg/dL (0.2-1.3); Blood Urea Nitrogen 30 mg/dL (7-17); Calcium 7.6 mg/dL (8.4-10.2); Carbon Dioxide 17 mmol/L (22-32); Chloride 96 mmol/L (98-107); Estimated Glomerular Filt Rate 12 mL/min (>60); Globulin 2.3 g/dL (1.7-4.1); Glucose 105 mg/dL (80-110); HEMOLYSIS < 15 (0-50); Potassium 4.4 mmol/L (3.4-5.1); Sodium 127 mmol/L (137-145); Total Protein 5.8 g/dL (6.3-8.2)
[2021-12-13] MEDS: ISOSORBIDE MONONITRATE ER 30 MG TABLET PO (06:16)
--- NOTE | 2021-12-13 06:44 | PC.NURSE ---
Patient denying pain throughout the night, and declining offer of analgesia. Patient repositioned Q2H and given oral care. Patient taking H2O without difficulty. Does better with pills whole in applesauce. Patient continues with oliguria. Patient had one loose mucousy stool. Yuliana care given and Mepilex dressing changed.
[2021-12-13] MEDS: MORPHINE 2 MG/ML INJ IV ×2 (07:28→11:41)
--- NOTE | 2021-12-13 11:47 | CM.DPC ---
DCP Cont: Patient is now DNR, and appropriate for hospice. Called patient's daughter, Elizabeth, who lives in [place]. Patient's son, Al, lives [place] east. Confirmed hospice with daughter, and also, found out that patient does not live at [facility], she was there for rehab. Patient resides at [facility]. Patient and daughter are hopeful that she can return back to [facility] on hospice services. Daughter also indicated, if she can't go there on hospice, she can go back to [facility] in [place] if they can't accomidate. Called [facility] wide area network administrator, Ciara, and left her a message about patient, and if they would be able to manage her. Will call [facility] first to see what their availability is, since patient is in [place]. P: DCP to continue to follow, and will follow up with [facility]. It is unclear if patient could pass here, but will go ahead and work with hospice and [facility] versus [facility]. Rakeshsully is planning on driving here, since she is positive for COVID, and can't fly, and is estimated to not be here until . Ruthann Fong RN/City Library Director
--- NOTE | 2021-12-13 12:25 | PM.PN.1 ---
Subjective Subjective Date Patient Seen: 12/13/21 Interval history: 76 year old female admitted with NSTEMI. She had worsening respiratory distress, placed on BIPAP and transferred to ICU, but after some time on BiPAP therapy she wished to stop all treatments. She wants to feel better primarily and go home. We are continuing minimal medical treatments with oral pills in case her urine output would improve, however she remains anuric. She is comfortable today without pain, but requiring more medication to keep her comfortable. Exam Vital Signs (past 8 hours): - 12/13/21 06:32 12/13/21 07:00 12/13/21 04:30 Pulse Rate 73 Blood Pressure 126/66 Pulse Oximetry 100 Oxygen Delivery Method Nasal Cannula 12/13/21 05:00 12/13/21 05:30 12/13/21 05:55 Pulse Rate 72 73 Blood Pressure 126/66 Pulse Oximetry 100 99 Oxygen Delivery Method 12/13/21 05:55 12/13/21 06:00 12/13/21 06:30 Pulse Rate 74 71 67 Blood Pressure Pulse Oximetry 100 100 100 Oxygen Delivery Method 12/13/21 07:00 12/13/21 07:30 12/13/21 08:00 Pulse Rate 69 79 83 Blood Pressure Pulse Oximetry 100 99 99 Oxygen Delivery Method 12/13/21 08:30 12/13/21 09:00 12/13/21 09:30 Pulse Rate 84 118 H 118 H Blood Pressure Pulse Oximetry 100 100 100 Oxygen Delivery Method 12/13/21 10:00 Pulse Rate 80 Blood Pressure Pulse Oximetry 100 Oxygen Delivery Method Fraction of Inspired Oxygen 28 Oxygen Delivery Method Nasal Cannula Oxygen Flow Rate 2 Narrative Exam Narrative: General:? Fatigued elderly female, no acute distress, ill appearing but comfortable HEENT:? Normocephalic, atraumatic, extraocular muscles intact, oral pharynx is clear and mucous membranes are moist. Neck: supple and symmetric, trachea is midline, no cervical adenopathy. + JVD Chest:? Normal AP diameter and contour without kyphoscoliosis, no tachypnea, equal chest rise bilaterally. Lungs:? Bibasilar crackles, diminished breath sounds bilateral lung bases L > R Cardio:?RRR no m/r/g. Abdomen: S NT ND. Musculoskeletal:? Muscle strength and tone are equal within normal limits, no deformity. Extremities: trace peripheral edema, no joint effusions Skin:? Pale,? Warm to touch,dry and intact without rashes, ulcerations or petechiae.? Objective Labs Result Diagrams: 12/12/21 04:45 12/13/21 05:00 Labs: Laboratory Results - last 24 hr 12/12/21 12/12/21 12/13/21 12:31 21:15 05:00 Sodium 128 L 127 L Potassium 4.5 4.4 Chloride 96 L 96 L Carbon Dioxide 17 L 17 L BUN 28 H 30 H Creatinine 3.37 H 3.73 H Estimated GFR 13 L 12 L BUN/Creatinine Ratio 8.3 8.0 Glucose 133 H 105 Calcium 7.7 L 7.6 L Magnesium 2.0 Total Bilirubin 0.3 AST 114 H ALT 84 H Alkaline Phosphatase 69 Total Protein 5.8 L Albumin 3.5 Globulin 2.3 Albumin/Globulin Ratio 1.5 C. difficile Tox (PCR) Negative for c. diff [facility] Medical History Anemia Anxiety Atypical chest pain Cataracts, bilateral CKD (chronic kidney disease), stage IV Congestive heart failure CVA (cerebral vascular accident) Diabetes Diabetic macular edema Diabetic neuropathy Diabetic retinopathy Diastolic dysfunction Edema Essential thrombocythemia Essential thrombocytosis Gait disorder GERD (gastroesophageal reflux disease) Glaucoma HTN (hypertension) Hypercholesterolemia Hyponatremia Insomnia Left ventricular hypertrophy Major depressive disorder Osteoarthritis Pain Pseudophakia of left eye Vitreous hemorrhage of right eye Surgical History History of arthroplasty of left knee (04/01/20) Social History household members: none Smoking Status: Former smoker alcohol intake: never Assessment & Plan Assessment & Plan narrative: NSTEMI, acute, present on admission - heparin infusion stopped after discussions regarding goals of care. Troponin peaked yesterday just below 7 then downtrended. - TTE with EF of approx 15%, appearance of stress induced cardiomyopathy (Takotsubo) - asa to continue along with statin. start beta kathrin today as afib with RVR for primarily comfort control. - appreciate tele-icu consultation, added plavix load and continue daily as well given NSTEMI. Continuing limited medical treatments for her NSTEMI in case her renal function improves. - cancelled transfer to higher level facility for [facility] given goals of care change. Acute systolic heart failure - patient takes entresto according to medication list. She is also on carvedilol and imdur. Though family reports no prior heart issues. - no evidence of heart failure previously in her records as well that we have available. - was on lasix infusion with little change in urine output. - held home entresto. - TTE with EF 15% as noted above, possible stress induced cardiomyopathy. Acute respiratory failure with hypoxia secondary to volume overload - secondary to heart failure and anuric acute renal failure. - continue to kate, stopped lasix infusion given lack of response and goals of care. - continue morphine and ativan for symptom relief. - if urine output resumes, consider restarting lasix. Metabolic encephalopathy - likely secondary to NSTEMI and acidosis from renal failure. Continue above therapies. Anion gap metabolic acidosis - suspect secondary to uremia and acute renal failure Probable UTI, acute, present on admission - continued antibiotics but these have been stopped. Acute renal failure with anuria on CKD stage 4 - only trace output since admission. Suspect cardiorenal in origin. Creatinine to 3.73 today. - continue kate - will continue to check daily labs if renal function improves. - if she begins to make urine, consider furosemide for volume overload. Essential Hypertension currently well controlled - management as noted above Hyperlipidemia Depression, chronic afib with RVR, new Advanced care planning: Initially patient endorsed wish to be full code without dilaysis. In the ICU after some time on BiPAP therapy she then expressed a wish to stop therapies. She states she still wants to get better and go home, but wishes to remain comfortable as well (though this is notably her previous home and not current [facility]). Discussed with daughter and son as well. They are in agreement for comfort measures if her renal function does not improve. Continuing limited medical oral medications as tolerated for now for treatment of NSTEMI should her renal function improve as a stress induced cardiomyopathy can sometimes improve. Primary goal remains keeping her respiratory symptoms controlled without advancement from supplemental oxygen (no BiPAP), patient is a DNR. - continue daily labs - continue morphine and ativan for comfort - limited medications as tolerated for NSTEMI (asa, statin, beta kathrin, plavix) in the low probability that patient's renal function improves. - attempt to set up hospice at this time, as probability of renal improvement seems low given prolonged anuria. - should she start to make urine, consider re-addition of lasix therapy for fluid removal in setting of acute heart failure. Code: Full, surrogate decision makers are the patient's daughter and son DVT: on heparin infusion Dispo: ICU I spent 40 minutes providing critical care management this patient. This excludes time spent in performing separately billed procedures and also advanced care planning discussed above. Time Spent With Patient Critical Care time: I spent a total of [] minutes of critical care time on this patient's care today; this time is exclusive of procedural time. Quality VTE Deep Vein Thrombosis/Pulmonary Embolism Present on Admission: No
[2021-12-13] MEDS: MORPHINE 4 MG/ML INJ IV ×3 (15:09→18:24)
[2021-12-13] MEDS: LORazepam 2 MG/ML ORAL SOL 1 MG PO (18:37)
[2021-12-13] MEDS: MORPHINE 50 MG in DEXTROSE 5 % IN WATER 45 ML IV (18:51)
[2021-12-14 00:15] VITALS: RESP 6
[2021-12-14 00:27] VITALS: BP 112/51; PULSE 70; RESP 6; O2SAT 88
[2021-12-14 02:45] VITALS: BP 109/53; PULSE 76; O2SAT 81
--- NOTE | 2021-12-14 06:34 | PC.NURSE ---
Pt on comfort care with morphine drip going at 1 mL/hr. HR and O2 sats slowly declining, with HR ranging from 40s-80s and O2 sats frp, 50s to high 80s. Pt RASS of -3. Respiratory rate around 6-8 with spells of apnea.
--- NOTE | 2021-12-14 08:36 | PC.NURSE ---
Addendum entered by Vikki Diaz R.N. 12/14/21 09:30: Patient to [facility] at 0910 via stretcher. Only belongings in room were socks which were sent with pt. Central line, peripheral IV, and kate catheter removed prior to transfer. Original Note: Day Shift Patient at 08, confirmed absence of heart sounds and absence of breath sounds via auscultation. Dr. Velazquez notified. Daughter (Carlota) notified. [facility]
--- NOTE | 2021-12-14 08:48 | CM.DPC ---
DCP Cont: Checked in with nurse, Dave, to see how patient is doing, and she stated that patient had just . Family had been notified, and Neftali was called. This DC Supervising Librarian called [facility] and spoke to Theresa, and gave her an update. She will also reach out to the family for bereavement counseling. Let her know that name of daughter is on face sheet, for contact information. P: Patient has this morning. Ruthann Fong RN/Service Center Representative
--- NOTE | 2021-12-14 09:08 | PM.PN.1 ---
Subjective Subjective Date Patient Seen: 12/14/21 Time Patient Seen: 09:08 Interval history: Patient passed earlier today. Nursing has notified family. No family is nearby to come to visit. Exam Vital Signs (past 8 hours): - 12/14/21 02:45 Pulse Rate 76 Blood Pressure 109/53 L Pulse Oximetry 81 L Fraction of Inspired Oxygen 28 Oxygen Delivery Method Room Air Oxygen Flow Rate 0 Narrative Exam Narrative: Patient passed earlier today. No breathing. Pupils fixed and dilated. No Pulses. Objective Labs Result Diagrams: 12/12/21 04:45 12/13/21 05:00 [facility] Medical History Anemia Anxiety Atypical chest pain Cataracts, bilateral CKD (chronic kidney disease), stage IV Congestive heart failure CVA (cerebral vascular accident) Diabetes Diabetic macular edema Diabetic neuropathy Diabetic retinopathy Diastolic dysfunction Edema Essential thrombocythemia Essential thrombocytosis Gait disorder GERD (gastroesophageal reflux disease) Glaucoma HTN (hypertension) Hypercholesterolemia Hyponatremia Insomnia Left ventricular hypertrophy Major depressive disorder Osteoarthritis Pain Pseudophakia of left eye Vitreous hemorrhage of right eye Surgical History History of arthroplasty of left knee (04/01/20) Social History household members: none Smoking Status: Former smoker alcohol intake: never Assessment & Plan Assessment & Plan narrative: . Will fill out certificate online. Ongoing problems included: Renal failure, NSTEMI, systolic heart failure, acute respiratory failure with with hypoxia secondary to volume overload, medical encephalopathy, urinary tract infection with E coli and Proteus mirabilis. These diagnosis in a patient with extensive past medical history. Time Spent With Patient Critical Care time: I spent a total of [] minutes of critical care time on this patient's care today; this time is exclusive of procedural time. Quality VTE Deep Vein Thrombosis/Pulmonary Embolism Present on Admission: No
--- NOTE | 2021-12-18 17:57 | PM.DDS.1 ---
Discharge Summary Hospital Course Date of Admission: 12/11/21 17:20 Date of : 12/14/21 Primary care provider: Migel Ambrose MD Consults: 12/11/21 21:26 Consult After Hours PICC Line RN Routine Comment: 12/11/21 21:27 Consult After Hours PICC Line RN Routine Comment: 12/12/21 09:27 Consult to Tele-board handler Routine Comment: Consulting Provider: [facility] [employer] Reason for consultation: Shook Machine Operator services 12/13/21 17:49 Consult to Hospice Referral Urgent Comment: Discharge Diagnosis: NSTEMI, acute, present on admission EF of approx 15% Stress induced cardiomyopathy (Takotsubo) Atrial fibrillation with Rapid Ventricular Rate Acute systolic heart failure Acute respiratory failure with hypoxia secondary to volume overload. Metabolic encephalopathy Anion gap metabolic acidosis Probable UTI, acute, present on admission Acute renal failure with anuria on CKD stage 4 (suspect cardiorenal in origin) Essential Hypertension Hyperlipidemia Depression, chronic Hospital Course: Marely Marley is a 76 yo female with paroxsysmal atrial fibrillation, thrombocythemia, insulin-dependent DM II (well-controlled, with A1c 6.9%), hypertension, CKD stage IV is a resident of [facility] in [place] with shortness of breath and generalized weakness. Patient's main complaint was pain in her back and rear as well as pain in both of her feet.? She also states that she was having shortness of breath and apparently when being roomed was needing to be placed on oxygen.?It appears that she had had a CVA, went to rehab and then went to [facility].? She endorsed having a cough and difficulty breathing for the past ?few days?. EKG was determined by the ED provider to have T-wave inversions in leads 3 V5 and V6 new from the 1st EKG that was done, patient's troponins were elevated and she was diagnosed with an NSTEMI.? They consulted with Cardiology, the patient was not deemed to be eligible for cardiac catheterization and recommended admission with 48 hours of heparin drip.? She also had a positive procalcitonin and elevated white count and was started on IV ceftriaxone for infection of unknown origin however it appears that she may have a mild UTI.? Chest x-ray did not identify pneumonia but stated she had congestive heart failure.? Patient continued to produce little urine and was essentially anuric. A triple lumen central line was placed and she required increased oxygenation with transfer to ICU for BiPaP . The expressed wished to stop treatment and she was transitioned to comfort care which initially provided minimal medication to try to benefit urine production. Urine production did not occur and the patient kept comfortable until her passing. Objective Labs Result Diagrams: 12/12/21 04:45 12/13/21 05:00
== END 2021-12-14 09:20 | disposition expired ==
LOC: ED 17:20 → AC 17:21 → ICU 12-12 09:07
PROVIDERS: Internal Medicine Critical Care Medicine; Nurse Practitioner Family; Admitting Provider Internal Medicine; Emergency Provider Emergency Medicine; PCP Internal Medicine; Referring Provider Emergency Medicine; Visit Provider Internal Medicine
DX: I21.4 Non-ST elevation (NSTEMI) myocardial infarction (principal); J96.01 Acute respiratory failure with hypoxia; G93.41 Metabolic encephalopathy; I50.21 Acute systolic (congestive) heart failure; I13.0 Hypertensive heart and chronic kidney disease with heart failure and stage 1 through stage 4 chronic kidney disease, or unspecified chronic kidney disease; N18.4 Chronic kidney disease, stage 4 (severe); N17.9 Acute kidney failure, unspecified; E87.2 Acidosis; N39.0 Urinary tract infection, site not specified; E78.5 Hyperlipidemia, unspecified; F32.A Depression, unspecified; B96.20 Unspecified Escherichia coli [E. coli] as the cause of diseases classified elsewhere; B96.4 Proteus (mirabilis) (morganii) as the cause of diseases classified elsewhere; I48.91 Unspecified atrial fibrillation; Z51.5 Encounter for palliative care; Z20.822 Contact with and (suspected) exposure to COVID-19; Z87.891 Personal history of nicotine dependence
CPT/HCPCS: 36415; 36592; 36600; 71045; 80048; 80053; 80061; 81001; 82550; 82553; 82805; 82962; 83036; 83690; 83735; 83880; 84145; 84443; 84484; 85025; 85730; 86850; 86900; 86901; 87086; 87493; 87635; 87797; 93005; 93010; 93306; 94640; 94660; 96365; 96375; 96376; 99284; 99285; C9803; J0696; J1642; J1644; J1940; J2270; J2543